=== PATIENT | male | born 1955 | race Caucasian/White ===

== ENCOUNTER 2016-07-08 14:03 | Inpatient (IN) | payer BC ==
[~2016-07-08] VITALS: Ht 180.3 cm; Wt 108.0 kg
[~2016-07-08 14:03] MED LIST: LEVA500T PO; PERC5TAB6 PO
[2016-07-08] MEDS ORDERED: ADVI200T PO (15:21)
[2016-07-08] MEDS ORDERED: HYDR12CA PO (15:21)
[2016-07-08] MEDS ORDERED: ATOR1TAB19 PO (15:21)
[2016-07-08] MEDS ORDERED: cefTRIAXone SOD 1 GM VIAL (J0696) As Ordered ONE (16:10)
[2016-07-08] MEDS ORDERED: MORPHINE 4 MG/ML 1ML SYRINGE As Ordered ONE (16:10)
[2016-07-08] MEDS ORDERED: ACETAMINOPHEN 325 MG TAB As Ordered ONE (16:10)
[2016-07-08] MEDS ORDERED: ONDANSETRON 4MG/2ML VIAL (J2405) As Ordered ONE (16:10)
[2016-07-08 16:20] LABS: INR 1.15
[2016-07-08 16:26] LABS: BASO # 0.1 K/mm3 (0.0-0.2); BASO % 0.6 % (0.0-1.0); EOS % 0.1 % (0.0-3.0); LARGE UNSTAINED CELL # 0.2 K/mm3 (0.0-0.4); LARGE UNSTAINED CELL % 1.1 % (0.0-4.0); LYMPH # 0.8 K/mm3 (1.5-4.5); LYMPH % 2.9 % (24.0-44.0); MEAN CORPUSCULAR HGB CONC 35.3 g/dl (32.0-36.5); MEAN CORPUSCULAR VOLUME 79.3 fl (80.0-96.0); MONO # 1.2 K/mm3 (0.0-0.8); MONO % 6.2 % (0.0-5.0); NEUTROPHILS # 17.1 K/mm3 (1.8-7.7); PLATELET COUNT, AUTOMATED 346 k/mm3 (150-450); RED CELL DISTRIBUTION WIDTH 13.6 % (11.5-14.5); WHITE BLOOD COUNT 19.2 K/mm3 (4.0-10.0)
[2016-07-08 16:34] LABS: ALBUMIN 3.1 GM/DL (3.2-5.2); ALBUMIN/GLOBULIN RATIO 0.86 (1.00-1.93); ALKALINE PHOSPHATASE 79 U/L (45-117); ALT/SGPT 28 U/L (12-78); AMYLASE 26 U/L (25-115); ANION GAP 12 MEQ/L (8-16); AST/SGOT 12 U/L (15-37); BILIRUBIN,DIRECT 0.7 MG/DL (0.0-0.2); BILIRUBIN,TOTAL 1.7 MG/DL (0.2-1.0); BLOOD UREA NITROGEN 14 MG/DL (7-18); CALCIUM LEVEL 8.7 MG/DL (8.5-10.1); CARBON DIOXIDE LEVEL 28 MEQ/L (21-32); CHLORIDE LEVEL 96 MEQ/L (98-107); CREATININE FOR GFR 1.04 MG/DL (0.70-1.30); GLOMERULAR FILTRATION RATE > 60.0 (>56); GLUCOSE, FASTING 115 MG/DL (70-105); SODIUM LEVEL 136 MEQ/L (136-145); TOTAL PROTEIN 6.7 GM/DL (6.4-8.2)
[2016-07-08] MEDS ORDERED: BISACODYL 5 MG TAB PO PRN (17:15)
[2016-07-08] MEDS ORDERED: ACETAMINOPHEN TAB 650MG DOSE (2X325MG) PO PRN (17:15)
--- NOTE | 2016-07-08 17:50 | HPE ---
DATE OF ADMISSION: 07/08/2016 PRIMARY CARE PROVIDER: Dr. Gene Munoz CHIEF COMPLAINT: Lower abdominal pain. HISTORY OF PRESENT ILLNESS: This patient is a 60-year-old male with a past medical history significant for prostate cancer, status post prostatectomy, hypercholesterolemia, who presented to [facility] on 07/08/2016 for worsening lower abdominal pain. The patient stated that approximately 4 to 5 days ago he was doing physical work and he started having acute onset of bilateral lower abdominal pain, mainly on the right side. The pain is constant without any radiation. He does not know what makes the pain worse or better. In the past few days, he also started experiencing a fever and nausea for the past 5 days. The patient also noted that he started having diarrhea. The patient is also noted to have cold-like symptoms, most significantly for head congestion for the past 2 weeks. The patient did have a history of prostate cancer diagnosis and is status post prostatectomy in January [address] Kaiser. After the prostatectomy, the patient has experienced fluid collection in the bilateral lower abdomen. He had image guided fluid drainage in March 2015. The patient was told that the fluid was lymphocytes and he is not sure whether there was any bacteria. The patient came to [facility] Emergency Room. During the workup, CT of the abdomen and pelvis was performed and it was found to have persistent large bilateral pelvic fluid collection, which compresses the bladder centrally. There is mild to large bilateral hydronephrosis and hydroureter. The hospitalist team was called for admission. ALLERGIES: No known drug allergies. HOME MEDICATIONS: - atorvastatin 10 mg by mouth daily - hydrochlorothiazide 12.5 mg by mouth daily - Advil 200 mg by mouth every 4 to 5 hours. PAST MEDICAL HISTORY: 1. Hypercholesterolemia. 2. History of prostate cancer, status post prostatectomy. PAST SURGICAL HISTORY 1. Prostatectomy in January 2015. 2. Umbilical hernia repair. 3. Right shoulder repair. SOCIAL HISTORY: Denies smoking. Drinks beer on a daily basis. The patient smokes marijuana at least once weekly. REVIEW OF SYSTEMS: GENERAL: Positive fever. Mild to moderate distress from abdominal pain. HEENT: No vision change. No auditory changes. CARDIOVASCULAR: No chest pain. No palpitations. RESPIRATORY: Flu-like symptoms for the past weeks GASTROINTESTINAL: Positive nausea. No vomiting. Positive bilateral lower abdominal pain, most significant on the right side. The patient is also noted to have diarrhea. MUSCULOSKELETAL: No muscle pain. No joint pain. NEUROLOGIC: No numbness or tingling. OBJECTIVE: VITAL SIGNS: Blood pressure 131/77, pulse is 112, respirations 20, temperature is 101.9, pulse oximetry 99% on room air. Body weight is 108.86. Body height is 180.34 cm. GENERAL: No acute distress. Alert and oriented times three. HEENT: Normocephalic, atraumatic. Extraocular muscles grossly intact. CARDIOVASCULAR: Distant heart sounds. Positive S1, S2. Regular rate. LUNGS: Clear to auscultation bilaterally. No rhonchi or wheezes. ABDOMEN: Distended. Bowel sounds present. No rebound. No guarding. MUSCULOSKELETAL: No edema. No cyanosis. NEUROLOGIC: Sensation to fine touch grossly intact. Muscle strength 5/5. LABORATORY DATA: WBC 19.2, hemoglobin 13.8, hematocrit 39.2, platelet count is 346. The patient's sodium is 136, potassium 4.0, chloride is 96, carbon dioxide 28, BUN 14, creatinine 1.04, GFR greater than 60, fasting glucose 115, lactic acid is 1.6, calcium is 8.7, total bilirubin is 1.7, direct bilirubin is 0.7, AST 12, ALT 28, alkaline phosphatase 79, total protein 6.7, albumin is 3.1, amylase 26, lipase 87. PT is 14.8, INR is 1.15. UA is negative for bacteria. Negative for leukocyte esterase. Negative nitrite. Microbiology: Blood culture is pending times two. Urine culture is pending. IMAGING STUDIES: CT of the abdomen and pelvis was performed on 07/08/2016 and showed persistent large bilateral ovoid pelvic fluid collection, which compresses the bladder centrally. There is moderate to large bilateral hydronephroses and hydroureter. Right sided urinary obstruction represents interval changes when compared to prior study in February 2015. There is retroperitoneal adenopathy, not significantly changed when compared to prior study. ASSESSMENT AND PLAN: 1. Large bilateral pelvic fluid collections. The patient will be admitted to the medical/surgical on inpatient status. The patient will be nothing by mouth after midnight. The patient will be on thromboembolic compression stockings (TEDS) and sequential compression device (SCD). The patient will have imaging guided needle placement for fluid drainage in interventional radiology department. 2. Systemic inflammatory response syndrome (SIRS). Currently, the patient has tachycardia with an elevated temperature. The patient also has WBC of 19.2. We will start the patient on empiric antibiotic with vancomycin and Zosyn. All the cultures are pending. The patient has a negative chest x-ray. UA is negative. 3. History of hypercholesterolemia. The patient is on atorvastatin. 4. History of prostate cancer, status post prostatectomy. 5. Deep vein thrombosis (DVT) prophylaxis. The patient will be on TEDS sequential compression device. MTDD
[2016-07-08 18:50] VITALS: BP 128/74
--- NOTE | 2016-07-08 18:52 | EDDOCDS ---
Nurse's Notes [facility] Name: Linden Mart Age: 60 yrs Sex: Male : 1955 Arrival Date: 07/08/2016 Time: 14:03 Bed 21 Private MD: Gene Munoz MD Diagnosis: Other hydronephrosis-lymphoceles;Fever, unspecified Presentation: 07/08 14:14 Presenting complaint: Patient states: "I've got a blocked ureter. I just came from [facility] and because I went through urgent care they told me to come here.". Adult Sepsis Screening: The patient does not have new or worsening altered mentation. Patient's respiratory rate is less than 22. Systolic blood pressure is greater than 100. Patient has a qSOFA score of 0- Negative Sepsis Screen. Suicide/Homicide risk assessment- the patient denies having any suicidal and/or homicidal ideations and does not present with any other emotional, behavioral or mental health complaints. Status: Patient is not a family dinner service specialist or dependent. Transition of care: Patient was received from [facility]. 14:14 Acuity: OCTAVIO Level 3 jc4 14:14 Method Of Arrival: Walkin/Carried/Asstd jc4 Triage Assessment: 14:18 General: Appears in no apparent distress. jc4 14:18 Pain: Pain currently is 5 out of 10 on a pain scale. Pt Declines HIV testing. jc4 Historical: - Allergies: no known allergies; - Home Meds: 1. atorvastatin 10 mg oral tab 1 tab once daily (Last dose: 07/07/2016) 2. hydrochlorothiazide 12.5 mg Oral tab 1 tab once daily (Last dose: 07/07/2016) 3. Advil 200 mg Oral tab 1 tab every 4-6 hours (Last dose: 07/08/2016 05:00) - PMHx: Hypercholesterolemia; Cancer, Prostate; - PSHx: prostate Surgery; Hernia repair- Umbilical; Right Shoulder Surgery; - Social history: Smoking status: Patient states was never smoker of tobacco. No barriers to communication noted, The patient speaks fluent Anguill[place]. - Family history: Not pertinent. - : The pt / caregiver states he / she is not on anticoagulants. Home medication list is obtained from pill bottles. - Exposure Risk Screening:: None identified. Screenin:48 Screening information is obtained from the patient. Fall risk: No risks identified. ms2 Assistance ADL's: requires no assistance with activities of daily living. Abuse/DV Screen: The patient / caregiver reports he/she is: not in a situation that causes fear, pain or injury. Nutritional screening: No deficits noted. Advance Directives: Currently, there is a health care proxy, -everett. There is an active DNR order but there is no copy available at this time. There is a living will, but a copy is not available at this time. There is an active Power of Automotive Internet Sales Manager, see above. Advance directive information has been placed on a prior [facility] medical record, Further advance directive information is declined. home support is adequate. Assessment: 15:40 General: Appears in no apparent distress, with pt. Behavior is cooperative, first ms2 contact with pt. Neurological: Level of Consciousness is awake, alert, obeys commands. Respiratory: No deficits noted. Airway is patent Respiratory effort is even, unlabored, Respiratory pattern is regular, symmetrical. GI: Abdomen is non- distended. Derm: Skin is pink, warm & dry. Musculoskeletal: Range of motion intact in all extremities. 16:23 General: Appears in no apparent distress, medicated for pain per order. Behavior is ms2 cooperative. Neurological: No deficits noted. Respiratory: Airway is patent Respiratory effort is even, unlabored, Respiratory pattern is regular, symmetrical. Derm: Skin is pink, warm & dry. Musculoskeletal: Range of motion intact in all extremities. 17:36 General: Appears in no apparent distress, comfortable, Behavior is cooperative. ms2 Neurological: Level of Consciousness is awake, alert, obeys commands. Respiratory: No deficits noted. Derm: Skin is pink, warm & dry. Musculoskeletal: Range of motion intact in all extremities. 17:41 Adult Sepsis Screening: Accepted Exclusions- The patient does not have new or worsening ms2 altered mentation. Patient's respiratory rate is less than 22. Systolic blood pressure is greater than 100. Patient has a qSOFA score of 0- Negative Sepsis Screen. 18:20 General: Appears in no apparent distress, comfortable, Behavior is cooperative, aware ms2 has a room. Neurological: Level of Consciousness is awake, alert, obeys commands. Respiratory: No deficits noted. Airway is patent Respiratory effort is even, unlabored, Respiratory pattern is regular, symmetrical. Derm: Skin is pink, warm & dry. Musculoskeletal: Range of motion intact in all extremities. 18:45 Adult Sepsis Screening: The patient does not have new or worsening altered mentation. ms2 Patient's respiratory rate is less than 22. Systolic blood pressure is greater than 100. Patient has a qSOFA score of 0- Negative Sepsis Screen. General: Appears in no apparent distress, comfortable, Behavior is cooperative. General: Appears in no apparent distress. Pain: Pain currently is 4 out of 10 on a pain scale. Neurological: Level of Consciousness is awake, alert, obeys commands. Respiratory: No deficits noted. Airway is patent Respiratory effort is even, unlabored, Respiratory pattern is regular, symmetrical. GI: Abdomen is flat, non- distended. Derm: Skin is pink, warm & dry. Musculoskeletal: Range of motion intact in all extremities. Vital Signs: 14:04 BP 131 / 77; Pulse 112; Resp 20; Temp 101.9(O); Pulse Ox 99% on R/A; Weight 108.86 kg elp (R); Height 5 ft. 11 in. (180.34 cm) (R); Pain 5/10; 16:23 BP 128 / 76; Pulse 107; Resp 20 S; Pulse Ox 93% on R/A; ms2 17:36 BP 131 / 81; Pulse 94; Resp 20 S; Pulse Ox 95% on R/A; ms2 18:46 BP 137 / 86; Pulse 69; Resp 20 S; Temp 100.2(O); Pulse Ox 96% on R/A; Pain 2/10; ms2 14:04 Body Mass Index 33.47 (108.86 kg, 180.34 cm) [facility] Vitals: 14:04 Log In Time: July 08, 2016 at 14:01. [facility] ED Course: 14:04 Patient visited by Mine Peres PCA. elp 14:04 Gene Munoz is Private Physician. elp 14:04 Patient moved to Waiting elp 14:06 Patient visited by Mine Peres PCA. elp 14:06 Patient moved to Pre RCE elp 14:15 Triage Initiated jc4 14:22 Soren Toussaint,DIEUDONNE is Primary Nurse. jc4 14:22 Patient moved to 21 jc4 14:23 Teresa Willett MD is Attending Physician. sd1 14:41 Patient visited by Teresa Willett MD. sd1 15:40 Patient visited by Soren Toussaint RN. ms2 15:40 The patient / caregiver is instructed regarding the plan of care and ED course. ms2 15:40 -Influenza A&B Rapid Antigen - Nose Sent. ms2 15:40 Urinalysis Sent. ms2 15:40 Urine Culture Sent. ms2 15:48 Inserted saline lock: 20 gauge in left hand The patient tolerated the procedure well. ms2 No procedures done that require assistance. 15:51 Patient visited by Soren Toussaint RN. ms2 15:51 Amylase Sent. ms2 15:51 Basic Metabolic Profile Sent. ms2 15:51 CBC with Diff Sent. ms2 15:51 Lipase Sent. ms2 15:51 Liver Profile Sent. ms2 15:51 Prothrombin Time Profile\\E\\INR Sent. ms2 15:51 Lactic Acid (Newton tube on ice) Sent. ms2 16:01 [facility] Payment Agreement was scanned into [employer] and attached to record. gjb 16:02 -Blood Culture Sent. ms2 16:23 The patient / caregiver is instructed regarding the plan of care and ED course. ms2 16:23 IV is patent, is intact, is free of redness or swelling. solution is infusing as ms2 ordered. 16:39 Gayatri Jackson shipping assistant. ys2 16:39 Gayatri Jackson is Hospitalizing Provider. sd1 17:34 Patient visited by Soren Toussaint RN. ms2 17:37 The patient / caregiver is instructed regarding the plan of care and ED course. ms2 17:37 IV is patent, is intact, is free of redness or swelling. solution is infusing as ms2 ordered. no reaction to iv antibiotic. 18:21 The patient / caregiver is instructed regarding the plan of care and ED course. ms2 18:21 IV is patent, is intact, is free of redness or swelling. solution is infusing as ms2 ordered. 18:45 Patient visited by Soren Toussaint RN. ms2 18:47 The patient / caregiver is instructed regarding the plan of care and ED course. ms2 18:47 IV is patent, is intact, is free of redness or swelling. ms2 Administered Medications: 16:15 Drug: NS 0.9% 1000 ml [sodium chloride 0.9 % intravenous solution] Route: IV; Rate: 100 ms2 mL/hr; Site: left hand; 16:18 Drug: Acetaminophen 650 mg [acetaminophen 325 mg tablet (2 tabs)] Route: PO; ms2 16:19 Drug: Ondansetron 4 mg Route: IVP; Site: left hand; ms2 16:20 Drug: morphine 4 mg Route: IVP; Site: left hand; ms2 16:23 Follow up: BP 128 / 76; Pulse 107 bpm; Resp 20 bpm Spontaneous; Pulse Ox 93% RA ms2 16:23 Drug: cefTRIAXone 1 grams Route: IVPB; Infused Over: 30 mins; Site: left hand; ms2 Intake: 17:36 IV: 50.00ml (NS); Total: 50.00ml. ms2 18:46 PO: 100.00ml (Water); IV: 50.00ml (NS); Total: 200.00ml. ms2 Output: 18:46 Urine: 100.00ml (Voided); Total: 100.00ml. ms2 Order Results: Lab Order: Amylase; SPEC'M 07/08/16 15:52 Test: AMYLASE; Value: 26; Range: 25-115; Units: U/L; Status: F Lab Order: Basic Metabolic Profile; SPEC'M 07/08/16 15:52 Test: GLUCOSE, FASTING; Value: 115; Range: 70-105; Abnormal: Above high normal; Units: MG/DL; Status: F Test: BLOOD UREA NITROGEN; Value: 14; Range: 7-18; Units: MG/DL; Status: F Test: CREATININE FOR GFR; Value: 1.04; Range: 0.70-1.30; Units: MG/DL; Status: F Test: GLOMERULAR FILTRATION RATE; Value: > 60.0; Range: >56; Status: F Test: SODIUM LEVEL; Value: 136; Range: 136-145; Units: MEQ/L; Status: F Test: POTASSIUM SERUM; Value: 4.0; Range: 3.5-5.1; Units: MEQ/L; Status: F Test: CHLORIDE LEVEL; Value: 96; Range: 98-107; Abnormal: Below low normal; Units: MEQ/L; Status: F Test: CARBON DIOXIDE LEVEL; Value: 28; Range: 21-32; Units: MEQ/L; Status: F Test: ANION GAP; Value: 12; Range: 8-16; Units: MEQ/L; Status: F Test: CALCIUM LEVEL; Value: 8.7; Range: 8.5-10.1; Units: MG/DL; Status: F Test Note: ; Units are mL/min/1.73 m2 Chronic Kidney Disease Staging per NKF: Stage I & II GFR >=60 Normal to Mildly Decreased Stage III GFR 30-59 Moderately Decreased Stage IV GFR 15-29 Severely Decreased Stage V GFR <15 Very Little GFR Left ESRD GFR <15 on SPINNING AND WINDING SUPERVISOR Lab Order: CBC with Diff; SPEC'M 07/08/16 15:52 Test: WHITE BLOOD COUNT; Value: 19.2; Range: 4.0-10.0; Abnormal: Above high normal; Units: K/mm3; Status: F Test: RED BLOOD COUNT; Value: 4.94; Range: 4.30-6.10; Units: M/mm3; Status: F Test: HEMOGLOBIN; Value: 13.8; Range: 14.0-18.0; Abnormal: Below low normal; Units: g/dl; Status: F Test: HEMATOCRIT; Value: 39.2; Range: 42.0-52.0; Abnormal: Below low normal; Units: %; Status: F Test: MEAN CORPUSCULAR VOLUME; Value: 79.3; Range: 80.0-96.0; Abnormal: Below low normal; Units: fl; Status: F Test: MEAN CORPUSCULAR HEMOGLOBIN; Value: 28.0; Range: 27.0-33.0; Units: pg; Status: F Test: MEAN CORPUSCULAR HGB CONC; Value: 35.3; Range: 32.0-36.5; Units: g/dl; Status: F Test: RED CELL DISTRIBUTION WIDTH; Value: 13.6; Range: 11.5-14.5; Units: %; Status: F Test: PLATELET COUNT, AUTOMATED; Value: 346; Range: 150-450; Units: k/mm3; Status: F Test: NEUTROPHILS %; Value: 89.0; Range: 36.0-66.0; Abnormal: Above high normal; Units: %; Status: F Test: LYMPH %; Value: 2.9; Range: 24.0-44.0; Abnormal: Below low normal; Units: %; Status: F Test: MONO %; Value: 6.2; Range: 0.0-5.0; Abnormal: Above high normal; Units: %; Status: F Test: EOS %; Value: 0.1; Range: 0.0-3.0; Units: %; Status: F Test: BASO %; Value: 0.6; Range: 0.0-1.0; Units: %; Status: F Test: LARGE UNSTAINED CELL %; Value: 1.1; Range: 0.0-4.0; Units: %; Status: F Test: NEUTROPHILS #; Value: 17.1; Range: 1.8-7.7; Abnormal: Above high normal; Units: K/mm3; Status: F Test: LYMPH #; Value: 0.8; Range: 1.5-4.5; Abnormal: Below low normal; Units: K/mm3; Status: F Test: MONO #; Value: 1.2; Range: 0.0-0.8; Abnormal: Above high normal; Units: K/mm3; Status: F Test: EOS #; Value: 0.0; Range: 0.0-0.50; Units: K/mm3; Status: F Test: BASO #; Value: 0.1; Range: 0.0-0.2; Units: K/mm3; Status: F Test: LARGE UNSTAINED CELL #; Value: 0.2; Range: 0.0-0.4; Units: K/mm3; Status: F Lab Order: Lipase; [facility] 07/08/16 15:52 Test: LIPASE; Value: 87; Range: 73-393; Units: U/L; Status: F Lab Order: Liver Profile; [facility] 07/08/16 15:52 Test: AST/SGOT; Value: 12; Range: 15-37; Abnormal: Below low normal; Units: U/L; Status: F Test: ALT/SGPT; Value: 28; Range: 12-78; Units: U/L; Status: F Test: ALKALINE PHOSPHATASE; Value: 79; Range: 45-117; Units: U/L; Status: F Test: BILIRUBIN,TOTAL; Value: 1.7; Range: 0.2-1.0; Abnormal: Above high normal; Units: MG/DL; Status: F Test: BILIRUBIN,DIRECT; Value: 0.7; Range: 0.0-0.2; Abnormal: Above high normal; Units: MG/DL; Status: F Test: TOTAL PROTEIN; Value: 6.7; Range: 6.4-8.2; Units: GM/DL; Status: F Test: ALBUMIN; Value: 3.1; Range: 3.2-5.2; Abnormal: Below low normal; Units: GM/DL; Status: F Test: ALBUMIN/GLOBULIN RATIO; Value: 0.86; Range: 1.00-1.93; Abnormal: Below low normal; Status: F Lab Order: Prothrombin Time Profile\\E\\INR; [facility] 07/08/16 15:52 Test: PROTHROMBIN TIME; Value: 14.8; Range: 12.3-14.5; Abnormal: Above high normal; Units: SECONDS; Status: F Test: INR; Value: 1.15; Status: F Test Note: ; THERAPUTIC HUMAN INR VALUES INDICATIONS NORMAL RANGES PROPHYLAXIS/TREATMENT OF: VENOUS THROMBOSIS 2.0-3.0 PULMONARY EMBOLISM 2.0-3.0 PREVENTION OF SYSTEMIC EMBOLISM FROM: TISSUE HEART VALVES 2.0-3.0 ACUTE MYOCARDIAL INFARCTION 2.0-3.0 VALVULAR HEART DISEASE 2.0-3.0 ATRIAL FIBRILLATION 2.0-3.0 MECHANICAL VALVES(HIGH RISK) 2.5-3.5 RECURRENT MYOCARDIAL INFARCTION 2.5-3.5 Lab Order: Urinalysis; [facility] 07/08/16 15:52 Test: APPEARANCE, URINE; Value: CLEAR; Range: CLEAR; Status: F Test: COLOR, URINE; Value: YELLOW; Range: YELLOW; Status: F Test: PH,URINE; Value: 5.0; Range: 5.0-9.0; Units: UNITS; Status: F Test: SPECIFIC GRAVITY URINE AUTO; Value: 1.048; Range: 1.002-1.035; Status: F Test: PROTEIN, URINE AUTO; Value: 2+; Range: NEGATIVE; Abnormal: Above high normal; Units: mg/dL; Status: F Test: GLUCOSE, URINE (UA) AUTO; Value: NEGATIVE; Range: NEGATIVE; Units: mg/dL; Status: F Test: KETONE, URINE AUTO; Value: 1+; Range: NEGATIVE; Abnormal: Above high normal; Units: mg/dL; Status: F Test: UROBILINOGEN, URINE AUTO; Value: 2.0; Range: 0.0-2.0; Abnormal: Above high normal; Units: mg/dL; Status: F Test: BILIRUBIN, URINE AUTO; Value: NEGATIVE; Range: NEGATIVE; Status: F Test: NITRITE, URINE AUTO; Value: NEGATIVE; Range: NEGATIVE; Status: F Test: LEUKOCYTE ESTERASE, URINE AUTO; Value: NEGATIVE; Range: NEGATIVE; Status: F Test: BLOOD, URINE BLOOD; Value: 1+; Range: NEGATIVE; Abnormal: Above high normal; Status: F Test: WBC, URINE AUTO; Value: 2; Range: 0-3; Units: /HPF; Status: F Test: RBC, URINE AUTO; Value: 7; Range: 0-3; Abnormal: Above high normal; Units: /HPF; Status: F Test: BACTERIA, URINE AUTO; Value: NEGATIVE; Range: NEGATIVE; Status: F Test: SQUAMOUS EPITHELIAL CELL UR AU; Value: 0; Range: 0-6; Units: /HPF; Status: F Test: HYALINE CAST, URINE AUTO; Value: 0; Range: 0-1; Units: /LPF; Status: F Lab Order: -Influenza A&B Rapid Antigen - Nose; SPEC'M 07/08/16 15:52 Test: INFLUENZA A RAPID SCR by ICA; Value: INFLUENZA A RESULTS NEGATIVE; Status: F Test: INFLUENZA A RAPID SCR by ICA; Value: Comments:; Status: F Test: INFLUENZA B RAPID SCR by ICA; Value: INFLUENZA B RESULTS NEGATIVE; Status: F Test Note: ; The Influenza test is a direct rapid immunoassay for the qualitative detection of Influenza viral antigen. Cell culture (Viral Culture) testing should be considered to confirm NEGATIVE results and to assist in detecting other viruses that can provide similar clinical symptoms. Please contact the lab within 24 hours ([phone]) if confirmatory testing is desired. Lab Order: Lactic Acid (Newton tube on ice); SPEC'M 07/08/16 15:52 Test: LACTIC ACID LEVEL, LACTATE; Value: 1.6; Range: 0.4-2.0; Units: MMOL/L; Status: F Outcome: 16:39 Decision to Hospitalize by Provider. sd1 18:47 Discharge Assessment: patient administered narcotics - yes. Patient was admitted to the [address] or transferred to another facility. The following High Risk Discharge criteria are identified: None. Admitted to Med/Surg accompanied by tech, family with patient, via stretcher, with chart. Condition: stable. No special radiology studies were completed. Property :Personal belongings accompany Pt. 18:51 Patient left the ED. ms2 Signatures: Teresa Willett MD MD sd1 Soren ToussaintRN RN ms2 Bridgette Stroud RN RN jc4 Mine Peres PCA PCA elp Beck, Gabriela gjb Sung, Yu ys2 Corrections: (The following items were deleted from the chart) 17:04 16:15 cefTRIAXone 1 grams IVPB in left hand over 30 mins ms2 ms2 MTDD
--- NOTE | 2016-07-08 18:52 | EDDOCDS ---
Physician Documentation [facility] Name: Linden Mart Age: 60 yrs Sex: Male : 1955 Arrival Date: 07/08/2016 Time: 14:03 Bed 21 Private MD: Gnee Munoz MD Disposition: 07/08/16 16:39 Hospitalization ordered by Gayatri Jackson for Inpatient Admission. Preliminary diagnosis are Other hydronephrosis - lymphoceles, Fever, unspecified. - Bed requested for 4 Wilburn. - Status is Inpatient Admission. ms2 - Condition is Stable. - Problem is new. - Symptoms have improved. Historical: - Allergies: no known allergies; - Home Meds: 1. atorvastatin 10 mg oral tab 1 tab once daily (Last dose: 07/07/2016) 2. hydrochlorothiazide 12.5 mg Oral tab 1 tab once daily (Last dose: 07/07/2016) 3. Advil 200 mg Oral tab 1 tab every 4-6 hours (Last dose: 07/08/2016 05:00) - PMHx: Hypercholesterolemia; Cancer, Prostate; - PSHx: prostate Surgery; Hernia repair- Umbilical; Right Shoulder Surgery; - Social history: Smoking status: Patient states was never smoker of tobacco. No barriers to communication noted, The patient speaks fluent Kyrgyz. - Family history: Not pertinent. - : The pt / caregiver states he / she is not on anticoagulants. Home medication list is obtained from pill bottles. - Exposure Risk Screening:: None identified. Vital Signs: 07/08 14:04 BP 131 / 77; Pulse 112; Resp 20; Temp 101.9(O); Pulse Ox 99% on R/A; Weight 108.86 kg / elp 240 lbs (R); Height 5 ft. 11 in. (180.34 cm) (R); Pain 5/10; 16:23 BP 128 / 76; Pulse 107; Resp 20 S; Pulse Ox 93% on R/A; ms2 17:36 BP 131 / 81; Pulse 94; Resp 20 S; Pulse Ox 95% on R/A; ms2 18:46 BP 137 / 86; Pulse 69; Resp 20 S; Temp 100.2(O); Pulse Ox 96% on R/A; Pain 2/10; ms2 14:04 Body Mass Index 33.47 (108.86 kg, 180.34 cm) elp MDM: 14:55 Undress patient appropriately for examination ordered. sd1 14:55 Obtain sample by nasopharyngeal swab ordered. sd1 14:56 NS 0.9% 1000 ml IV at 100 mL/hr continuous ordered. sd1 14:56 Acetaminophen Tablet 650 mg PO once ordered. sd1 14:56 Amylase Ordered. EDMS 14:56 Basic Metabolic Profile Ordered. EDMS 14:56 CBC with Diff Ordered. EDMS 14:56 Lipase Ordered. EDMS 14:56 Liver Profile Ordered. EDMS 14:56 Prothrombin Time Profile\E\INR Ordered. EDMS 14:56 Urinalysis Ordered. EDMS 14:56 Urine Culture Ordered. EDMS 14:56 -Influenza A&B Rapid Antigen - Nose Ordered. EDMS 14:56 morphine 4 mg IVP every 15 minutes; Document pain score/vitals after each dose (Hold if sd1 SBP < 90mmHg) x2 ordered. 14:56 Ondansetron 4 mg IVP once ordered. sd1 14:57 NOTHING BY MOUTH+DIET ordered. EDMS 14:59 -Blood Culture (Adults Only), peripheral from different site, or from device/port/PICC sd1 etc. if present ordered. 14:59 BED REQUEST+ADM ordered. EDMS 15:00 Lactic Acid (Newton tube on ice) Ordered. EDMS 15:00 -Blood Culture Ordered. EDMS 15:00 Chest, 2 View (pa\E\lat) Ordered. EDMS 15:18 -Blood Culture (Adults Only), peripheral from different site, or from device/port/PICC deg etc. if present complete. 15:19 BLOOD CULTURES Ordered. EDMS 15:47 cefTRIAXone 1 grams IVPB once over 30 mins; dilute in 50mL of NS or D5W ordered. sd1 16:01 [facility] Payment Agreement was scanned into [employer] and attached to record. gjb 16:01 Financial registration complete. gjb 16:23 Prothrombin Time Profile\E\INR Reviewed. sd1 16:23 Urinalysis Reviewed. sd1 16:23 -Influenza A&B Rapid Antigen - Nose Reviewed. sd1 16:31 GASTROINTESTINAL (GI) PANEL Ordered. EDMS 16:34 CBC with Diff Reviewed. sd1 16:36 Basic Metabolic Profile Reviewed. sd1 16:36 Liver Profile Reviewed. sd1 16:36 Amylase Reviewed. sd1 16:36 Lipase Reviewed. sd1 17:04 cefTRIAXone 1 grams IVPB once over 30 mins; dilute in 50mL of NS or D5W ordered. ms2 17:06 Admission / Observation Status ordered. EDMS 17:06 NPO DIET ordered. EDMS 17:17 CT guide needle placement Ordered. EDMS Administered Medications: 16:15 Drug: NS 0.9% 1000 ml [sodium chloride 0.9 % intravenous solution] Route: IV; Rate: 100 ms2 mL/hr; Site: left hand; 16:18 Drug: Acetaminophen 650 mg [acetaminophen 325 mg tablet (2 tabs)] Route: PO; ms2 16:19 Drug: Ondansetron 4 mg Route: IVP; Site: left hand; ms2 16:20 Drug: morphine 4 mg Route: IVP; Site: left hand; ms2 16:23 Follow up: BP 128 / 76; Pulse 107 bpm; Resp 20 bpm Spontaneous; Pulse Ox 93% RA ms2 16:23 Drug: cefTRIAXone 1 grams Route: IVPB; Infused Over: 30 mins; Site: left hand; ms2 Signatures: Dispatcher [employer] EDAZ Teresa Willett MD MD sd1 Le Barnes, Configuration Management Architect Unit deg Soren Toussaint RN RN ms2 Bridgette Stroud RN RN Jacqueline Sanabria Lisa, RN RN lmg The chart was reviewed and I authenticate all verbal orders and agree with the evaluation and treatment provided.Corrections: (The following items were deleted from the chart) 16:24 15:46 Tillman ordered. sd1 sd1 16:32 16:30 GASTROINTESTINAL (GI) PANEL+MARIAM ordered. EDMS EDMS Attachments: 16:01 [facility] Payment [facility]
--- NOTE | 2016-07-08 19:47 | PHACANCOPD ---
PHARMACY VANCOMYCIN DOSING Pt Demographics Demographics Patient Age:60 , Weight:105.200 , Gender: male Adjusted Body Weight Events Past 24 Hours Events Past 24 Hours: NO: Change in CrCl, Dialysis, Diuretic Therapy, Elevation in WBC, Fever, Other, Pending Diagnostics, Pending Procedures Vancomycin Vancomycin Target Ranges: 15-20 mcg/ml Vancomycin Load Y/N: Yes Load Dose Date Time Vancomycin Load Dose: 2GM Date: 07/08/16 Time: 21:00 Vancomycin Dose Date: 07/09/16. Current Vancomycin Dose: [1GM IV Q8H (05:00)] Intermittent Dosing?: No Labs Labs Laboratory Tests 07/08/16 15:52 Red Blood Count 4.94, Mean Corpuscular Volume 79.3 L, Mean Corpuscular Hemoglobin 28.0, Mean Corpuscular Hemoglobin Concent 35.3, Red Cell Distribution Width 13.6, Neutrophils (%) (Auto) 89.0 H, Lymphocytes (%) (Auto) 2.9 L, Monocytes (%) (Auto) 6.2 H, Eosinophils (%) (Auto) 0.1, Basophils (%) ( Auto) 0.6, Neutrophils # (Auto) 17.1 H, Lymphocytes # (Auto) 0.8 L, Monocytes # (Auto) 1.2 H, Eosinophils # (Auto) 0.0, Basophils # (Auto) 0.1 Micro Microbiology 07/08/16 Blood Culture, Received Pending 07/08/16 Blood Culture, Received Pending 07/08/16 Urine Culture, Received Pending Creatinine Clearance Date:07/08/16. Creatinine Clearance: [>60ml/min]. Assessment and Plan Maintaining Current Dose?: Yes Reason for dose change: No Dose Change Pharmacist Note Pharmacist Note Date: 07/08/16. Pharm.D. note: 60YO MALE, 71" in HEIGHT, 108.86kg in WEIGHT. SCR 1.04, CRCL >60 ml/ min.ADMITTED WITH SIRS & LEUKOCYTOSIS. ZOSYN 3.375GM IV Q6H 20:00 WE ARE ASKED TO DOSE VANCO. WE WILL INITIATE WITH A 2GM VANCO LOAD AT 21:00 FOLLOWED BY VANCO 1GM IV Q8H STARTING @ 05:00 07/09/16. A VANCO TR WILL BE DRAWN WHEN HE IS AT STEADY STATE. BAKARI Pharm.D. [facility] Jul 08, 2016 19:47
[2016-07-08] MEDS: NS 1,000 ML IV SCH (20:19)
[2016-07-08] MEDS: ATORVASTATIN 10 MG TAB PO SCH (20:19)
[2016-07-08] MEDS: PIPERACILLIN/TAZOBACTAM SOD 3.375 GM in D5W MINI-BAG PLUS 50 ML IV SCH (20:38)
[2016-07-08 20:40] VITALS: BP 136/75
[2016-07-08] MEDS ORDERED: VANCOMYCIN HCL 1,000 MG, VIAL MATE ADAPTER 1 EACH in D5W 250 ML IV ONE ×2 (21:00→22:00)
--- NOTE | 2016-07-08 23:54 | REP ---
PA and lateral chest 07/08/2016 Indication: Cough and fever Comparison: PA and lateral chest 01/14/2015, CT abdomen pelvis 07/08 which includes lung bases in field of view. The cardiac silhouette is normal. The mediastinum is within normal limits. There is eventration of the right hemidiaphragm without change. The lungs are clear bilaterally. Moderate degenerative changes are noted within the distal right clavicle.] Impression 1. No acute cardiopulmonary process or interval change Signed by Charisse Betts MD 07/08/2016 11:46 P
[2016-07-09] MEDS: PIPERACILLIN/TAZOBACTAM SOD 3.375 GM in D5W MINI-BAG PLUS 50 ML IV SCH ×4 (02:28→20:14)
[2016-07-09] MEDS: PERCOCET 5MG/325MG TAB PO PRN ×3 (02:31→21:13)
[2016-07-09] MEDS: VANCOMYCIN HCL 1,000 MG, VIAL MATE ADAPTER 1 EACH in D5W 250 ML IV SCH ×3 (05:54→21:13)
[2016-07-09] MEDS: NS 1,000 ML IV SCH ×3 (05:55→23:01)
[2016-07-09 06:05] VITALS: BP 122/70
[2016-07-09] MEDS ORDERED: LIDOCAINE 1% MDV 20ML VIAL As Ordered ONE (10:13)
[2016-07-09 12:10] VITALS: BP 132/72
[2016-07-09] MEDS: ATORVASTATIN 10 MG TAB PO SCH (12:19)
--- NOTE | 2016-07-09 12:31 | IPNPDOC ---
Assessment/Plan Date Seen The patient was seen on 07/09/16. Patient Summary Patient was admitted 07/08/2016 with increasing abdominal pain and leukocytosis of 19.2 Problems Problems: (1) Intra-abdominal fluid Status: Acute Response to Treatment: Stable Discussed With: Cylinder Steamer, Pt and Family Services Problem Text: Awaiting results from IR drainage. We'll discuss with Dr. Caruso regarding possible surgical intervention. However, he is not here until Tuesday. Patient will need to be monitored until sirs has resolved and cultures are negative. -Continue empiric antibiotics; Zosyn day 1; initiated 1999 on July 08 -Follow up fluid analysis -Discuss with Dr. Caruso (2) SIRS (systemic inflammatory response syndrome) Status: Acute Problem Text: Unknown source, however patient had positive UA. He also had a large quantity of fluid in the pelvis, which was just drained. He also screen positive for enterotoxic Escherichia coli. He is not currently complaining of any bowel symptoms, so sirs may be due to urosepsis or intra-abdominal infection. Awaiting cultures. -Continue empiric antibiotics for possible sepsis versus inflammatory response -Follow up urine and fluid cultures (3) Hyperbilirubinemia Status: Acute Problem Text: T bili is 1.7. Unclear cause. No current right upper quadrant symptoms. -Measure direct and indirect bili (4) Anemia Status: Acute Problem Text: Borderline hemoglobin -Recheck in a.m. -Consider anemia workup outpatient; patient currently asymptomatic (5) HLD (hyperlipidemia) Status: Chronic Problem Text: continue home statin Plan / VTE VTE Prophylaxis Ordered?: Yes (previously on teds, however with history of prostate cancer Will anticoagulate with heparin) Plan / Urinary Catheter Reason for insertion/continuin: Acute obstruct/retention Disposition Pending resolution of leukocytosis, evaluation of parity no fluid, and plan for patient's lymphatic insufficiency Subjective Review of Systems CC/HPI The patient is a 60-year-old male admitted with a reason for visit of Intra- Abdominal Fluid;Sirs. Events since last encounter Patient is returned from IR procedure. He states that he is now feeling well. He has a history of prostate cancer with pelvic lymph node dissection. Dr. Barreto is considering a surgical procedure to reduce the space available for fluid collection. He denies any fevers, chills, sweats, or difficulty with urination. He has no other concerns. General: Reports: Normal Appetite, Denies: Chills, Fatigue, Malaise Constitutional: Denies: Chills, Fever Skin: Denies: Rash Pulmonary: Denies: Cough, Dyspnea Cardiovascular: Denies: Chest Pain, Palpitations Gastrointestinal: Denies: Nausea, Vomiting Genitourinary: Denies: Dysuria Other systems 10 point review of systems otherwise negative Objective Physical Examination General Exam: Positive: Alert, No Acute Distress Eye Exam: Positive: Conjunctiva & lids normal, Negative: Sclera icteric ENT Exam: Positive: Mucous membr. moist/pink, Nares Patent Neck Exam: Negative: JVD, thyromegaly Chest Exam: Positive: Clear to auscultation, Normal air movement, Negative: Rales, Rhonchi, Wheezing Heart Exam: Positive: Normal S1, Normal S2, Rate Normal, Negative: Murmurs, Rubs Abdomen Exam: Positive: Normal bowel sounds, Other (bilateral drains in place) , Soft, Negative: Hepatospenomegaly, Hernia, Mass, Tenderness Male Exam: Positive: Normal Genital Exam Extremity Exam: Positive: Normal pulses, Negative: Clubbing, Cyanosis, Edema Skin Exam: Positive: Nl turgor and temperature, Negative: Rash Vital Signs/I&O Vital Signs Date Time Temp Pulse Resp B/P Pulse Ox O2 Delivery O2 Flow Rate FiO2 07/09/16 12:10 99.1 92 18 132/72 95 Room Air I&O- Last 24 Hours up to 6 AM 07/09/16 05:59 Intake Total 860 ml Output Total 250 ml Balance 610 ml Laboratory Data Labs 24H Laboratory Tests 2 07/08/16 15:52: Aspartate Amino Transf (AST/SGOT) 12L, Alanine Aminotransferase (ALT/SGPT) 28, Alkaline Phosphatase 79, Total Bilirubin 1.7H, Direct Bilirubin 0.7H, Albumin 3.1L, Albumin/Globulin Ratio 0.86L, Amylase Level 26, Anion Gap 12, White Blood Count 19.2H, Red Blood Count 4.94, Hemoglobin 13.8L, Hematocrit 39.2L, Mean Corpuscular Volume 79.3L, Mean Corpuscular Hemoglobin 28.0, Mean Corpuscular Hemoglobin Concent 35.3, Red Cell Distribution Width 13.6, Platelet Count 346, Neutrophils (%) (Auto) 89.0H, Lymphocytes (%) (Auto) 2.9L, Monocytes (%) (Auto) 6.2H, Eosinophils (%) (Auto) 0.1, Basophils (%) (Auto) 0.6, Neutrophils # (Auto ) 17.1H, Lymphocytes # (Auto) 0.8L, Monocytes # (Auto) 1.2H, Eosinophils # (Auto ) 0.0, Basophils # (Auto) 0.1, Calcium Level 8.7, Glomerular Filtration Rate > 60.0, Lactic Acid Level 1.6, Large Unclassified Cells # 0.2, Large Unclassified Cells % 1.1, Lipase 87, Prothromb Time International Ratio 1.15, Prothrombin Time 14.8H, Total Protein 6.7, Urine Amorphous Sediment , Urine Appearance CLEAR , Urine Color YELLOW, Urine pH 5.0, Urine Specific [place] 1.048, Urine Protein 2+H, Urine Glucose (UA) NEGATIVE, Urine Ketones 1+H, Urine Urobilinogen 2.0H, Urine Bilirubin NEGATIVE, Urine Leukocyte Esterase NEGATIVE, Urine Bacteria ( Auto) NEGATIVE, Urine Blood 1+H, Urine Calcium Carbonate Cryst(Auto) , Urine Calcium Oxalate Cryst (Auto) , Urine Calcium Phosphate [place] (Auto) , Urine Cellular Casts , Urine Cystine Crystals , Urine Granular Casts (Auto) , Urine Hyaline Casts (Auto) 0, Urine Leucine Crystals , Urine Mucus (Auto) , Urine Nitrite NEGATIVE, Urine Oval Fat Bodies (Auto) , Urine RBC (Auto) 7H, Urine Renal Epithelial Cells , Urine Sperm (Auto) , Urine Squamous Epithelial Cells 0 , Urine Transitional Epithelial Cells , Urine Trichomonas (Auto) , Urine Triple Phosphate Cryst (Auto) , Urine Tyrosine Crystals , Urine Uric Acid Crystals ( Auto) , Urine WBC (Auto) 2, Urine Waxy Casts (Auto) , Urine Yeast-Like Cells ( Auto) CBC/BMP Laboratory Tests 07/08/16 15:52 Red Blood Count 4.94, Mean Corpuscular Volume 79.3 L, Mean Corpuscular Hemoglobin 28.0, Mean Corpuscular Hemoglobin Concent 35.3, Red Cell Distribution Width 13.6, Neutrophils (%) (Auto) 89.0 H, Lymphocytes (%) (Auto) 2.9 L, Monocytes (%) (Auto) 6.2 H, Eosinophils (%) (Auto) 0.1, Basophils (%) ( Auto) 0.6, Neutrophils # (Auto) 17.1 H, Lymphocytes # (Auto) 0.8 L, Monocytes # (Auto) 1.2 H, Eosinophils # (Auto) 0.0, Basophils # (Auto) 0.1 Microbiology Microbiology 07/08/16 Blood Culture, Received Pending 07/08/16 Blood Culture, Received Pending 07/09/16 Gram Stain, Received Pending 07/09/16 Body Fluid Culture, Received Pending 07/08/16 Gastrointestinal Tract Panel (PCR) - Final, Complete Enteropathogenic E.coli 07/08/16 Influenza Virus Type A Antigen - Final, Complete 07/08/16 Influenza Virus Type B Antigen - Final, Complete 07/08/16 Urine Culture - Final, Complete 07/09/16 Anaerobic Culture, Received Pending 07/09/16 Gram Stain, Received Pending 07/09/16 Body Fluid Culture, Received Pending 07/09/16 Anaerobic Culture, Received Pending АЛЕКСАНДР SALMERON MD Jul 09, 2016 12:31
--- NOTE | 2016-07-09 13:06 | REP ---
BILATERAL ULTRASOUND GUIDED PELVIC FLUID COLLECTION DRAINAGE: The patient was referred for bilateral ultrasound guided drainage of fluid collections in the pelvis. Patient has a history of bilateral lymphoceles status post prostate surgery. CT exam showed bilateral pelvic fluid collections. Informed consent was obtained for the procedure. On the right side under sterile conditions and after satisfactory administration of local anesthesia, using continuous ultrasound guidance, 10-Kazakh pigtail drainage catheter was placed into the fluid collection. Approximately 245 mL of cloudy yellow fluid was aspirated and sent for cytology, gram stain, culture and sensitivity. The pigtail catheter was sutured at the skin entrance site after forming the pigtail. It was attached to a drainage bag. The same exact procedure was performed on the left side, with placement of a 10-Kazakh pigtail drainage catheter into the left pelvic fluid collection under continuous ultrasound guidance. The pigtail was formed. Approximately 290 mL of clear yellow fluid was aspirated and sent for cytology, gram stain, culture and sensitivity. Again the catheter was sutured at the skin entrance site and attached to a drainage bag. Hemostasis was obtained and there were no immediate complications. Signed by Alexander Newton MD 07/09/2016 04:36 P
[2016-07-09 14:32] VITALS: BP 140/87
--- NOTE | 2016-07-09 15:10 | CR ---
DATE OF CONSULTATION: 07/08/2016 PHYSICIAN CONSULTING: Charisse Avila, ER doctor REASON FOR CONSULTATION: Lower urinary tract symptoms plus incidental finding of bilateral pelvic lymphoceles. HISTORY OF PRESENT ILLNESS: This is a 60-year-old male patient that had a robotic assisted radical prostatectomy plus bilateral pelvic lymph node dissections more than one year ago. He then had bilateral pelvic lymphoceles which were drained by interventional radiology. After that he had external beam radiation therapy to the prostate also. The patient has been doing very well for one year. He came today to the emergency department (ED) due to a four day history of fevers, chills and diarrhea times four episodes. He also had a cough and a sore throat. In the emergency room a CT scan of the abdomen of the pelvis was done which showed an incidental finding of bilateral pelvic lymphoceles, large around 10 cm each compressing the bladder. The patient refers that he has been urinating by himself, no hematuria. Has urinated today four times without any problems but there is moderate hydronephrosis bilaterally that could be due to compression of the bladder by the lymphoceles. Eventhough there is evident bilateral hydronephrosis, his creatinine is 1.0. PHYSICAL EXAMINATION: On physical examination he is awake, oriented times three, well nourished, well hydrated. Skin: no alterations HEENT: no alterations Lungs: Clear to auscultation. No crepitus ABDOMEN: Is soft, non-tender, non-distended. He has a large belly. There is no pain in the pelvic area. Rebound negative Genitalia: Testicles, scrotum and penis without any alteration. MUSCULOSKELETAL : No restriction to passive and active movement of upper and lower extremities. Peripheral pulses are palpable. NEUROLOGIC: Intact IMPRESSION AND PLAN: 1. This is a patient with a history of prostate cancer treated with robotic assisted radial prostatectomy more than one year ago and treated with XRT due to biochemical recurrence. He has also a history aspiration of pelvic lymphoceles more than one year ago. 2. Acute gastroenteritis. 3. Dehydration due to acute gastroenteritis 4. Bilateral moderate hydronephrosis due to recurrent pelvic lymphoceles causing compression of the bladder, and retrograde pressure to the upper collecting system PLAN: We have consulted interventional radiology for elective drainage of pelvic lymphoceles. The patient can void so we will not put a Tillman catheter. He should be admitted by hospitalist service to evaluate fever of unknown etiology, possible GI or respiratory. Cultures have been set, urine culture and blood cultures also. We will follow the patient in the hospital. DRU
[2016-07-09] MEDS: HEPARIN SOD (PORCINE) 5000 UNITS/ML VIAL SQ SCH ×2 (15:18→21:13)
[2016-07-09 20:50] VITALS: BP 123/17
[2016-07-10] MEDS: PIPERACILLIN/TAZOBACTAM SOD 3.375 GM in D5W MINI-BAG PLUS 50 ML IV SCH ×4 (02:14→19:56)
[2016-07-10] MEDS: VANCOMYCIN HCL 1,000 MG, VIAL MATE ADAPTER 1 EACH in D5W 250 ML IV SCH ×3 (05:14→21:03)
[2016-07-10] MEDS: HEPARIN SOD (PORCINE) 5000 UNITS/ML VIAL SQ SCH ×3 (05:14→21:05)
[2016-07-10 06:20] VITALS: BP 120/75
[2016-07-10 06:32] LABS: BASO # 0.2 K/mm3 (0.0-0.2); EOS % 0.4 % (0.0-3.0); LARGE UNSTAINED CELL # 0.1 K/mm3 (0.0-0.4); LARGE UNSTAINED CELL % 1.2 % (0.0-4.0); LYMPH # 0.3 K/mm3 (1.5-4.5); LYMPH % 2.1 % (24.0-44.0); MEAN CORPUSCULAR HEMOGLOBIN 27.5 pg (27.0-33.0); MEAN CORPUSCULAR HGB CONC 33.6 g/dl (32.0-36.5); MEAN CORPUSCULAR VOLUME 81.9 fl (80.0-96.0); MONO # 0.6 K/mm3 (0.0-0.8); MONO % 5.3 % (0.0-5.0); NEUTROPHILS # 9.6 K/mm3 (1.8-7.7); NEUTROPHILS % 89.2 % (36.0-66.0); PLATELET COUNT, AUTOMATED 290 k/mm3 (150-450); RED CELL DISTRIBUTION WIDTH 13.7 % (11.5-14.5); WHITE BLOOD COUNT 10.8 K/mm3 (4.0-10.0)
[2016-07-10 06:35] LABS: INR 1.17
[2016-07-10 06:54] LABS: ALBUMIN 2.1 GM/DL (3.2-5.2); ALBUMIN/GLOBULIN RATIO 0.53 (1.00-1.93); ALKALINE PHOSPHATASE 113 U/L (45-117); ALT/SGPT 59 U/L (12-78); ANION GAP 6 MEQ/L (8-16); AST/SGOT 52 U/L (15-37); BILIRUBIN,DIRECT 0.5 MG/DL (0.0-0.2); BILIRUBIN,TOTAL 0.9 MG/DL (0.2-1.0); BLOOD UREA NITROGEN 15 MG/DL (7-18); CARBON DIOXIDE LEVEL 28 MEQ/L (21-32); CHLORIDE LEVEL 103 MEQ/L (98-107); CREATININE FOR GFR 0.94 MG/DL (0.70-1.30); GLOMERULAR FILTRATION RATE > 60.0 (>56); GLUCOSE, FASTING 136 MG/DL (70-105); POTASSIUM SERUM 3.5 MEQ/L (3.5-5.1); SODIUM LEVEL 137 MEQ/L (136-145); TOTAL PROTEIN 6.1 GM/DL (6.4-8.2)
[2016-07-10] MEDS: ATORVASTATIN 10 MG TAB PO SCH (08:45)
--- NOTE | 2016-07-10 09:40 | IPNPDOC ---
Assessment/Plan Date Seen The patient was seen on 07/10/16. Problems Problems: (1) Intra-abdominal fluid Status: Acute Response to Treatment: Stable Discussed With: Graduate Research Assistant, Pt and Family Services Problem Text: Awaiting results from IR drainage. We'll discuss with Dr. Caruso regarding possible surgical intervention. However, he is not here until Tuesday. Patient will need to be monitored until sirs has resolved and cultures are negative. -Continue empiric antibiotics; Zosyn day 1; initiated 1999 on July 08 -Follow up fluid analysis -Discuss with Dr. Caruso IV Domitilasysea and Vanco day 2. Dr Kaiser following. (2) SIRS (systemic inflammatory response syndrome) Status: Acute Problem Text: Unknown source, however patient had positive UA. He also had a large quantity of fluid in the pelvis, which was just drained. He also screen positive for enterotoxic Escherichia coli. He is not currently complaining of any bowel symptoms, so sirs may be due to urosepsis or intra-abdominal infection. Awaiting cultures. -Continue empiric antibiotics for possible sepsis versus inflammatory response -Follow up urine and fluid cultures (3) Hyperbilirubinemia Status: Acute Problem Text: T bili is 1.7. Unclear cause. No current right upper quadrant symptoms. -Measure direct and indirect bili 07/10/16 - TB down to 0.9. (4) Anemia Status: Acute Problem Text: Borderline hemoglobin -Recheck in a.m. -Consider anemia workup outpatient; patient currently asymptomatic 07/10/16 - Hgb 11.3 (13.8 yesterday) (5) HLD (hyperlipidemia) Status: Chronic Problem Text: continue home statin Plan / VTE VTE Prophylaxis Ordered?: Yes (previously on teds, however with history of prostate cancer Will anticoagulate with heparin) Plan / Urinary Catheter Reason for insertion/continuin: Acute obstruct/retention Plan Plan Text Attending attestation: I saw and evaluated the patient, and agree with the plan of care as discussed and documented above. Александр Gandhi MD Subjective Review of Systems CC/HPI The patient is a 60-year-old male admitted with a reason for visit of Intra- Abdominal Fluid;Sirs. Events since last encounter Pt states he is feeling better. has drains in place. Denies CP, SOB, Abd pain. Constitutional: Denies: Chills, Fever Pulmonary: Denies: Dyspnea Cardiovascular: Denies: Chest Pain Gastrointestinal: Denies: Abdominal Pain, Nausea, Vomiting Objective Physical Examination General Exam: Positive: Alert, No Acute Distress Eye Exam: Positive: Conjunctiva & lids normal, Negative: Sclera icteric ENT Exam: Positive: Mucous membr. moist/pink, Nares Patent Neck Exam: Negative: JVD, thyromegaly Chest Exam: Positive: Clear to auscultation, Normal air movement, Negative: Rales, Rhonchi, Wheezing Heart Exam: Positive: Normal S1, Normal S2, Rate Normal, Negative: Murmurs, Rubs Abdomen Exam: Positive: Normal bowel sounds, Other (bilateral drains in place) , Soft, Negative: Hepatospenomegaly, Hernia, Mass, Tenderness Male Exam: Positive: Normal Genital Exam Extremity Exam: Positive: Normal pulses, Negative: Clubbing, Cyanosis, Edema Skin Exam: Positive: Nl turgor and temperature, Negative: Rash Vital Signs/I&O Vital Signs Date Time Temp Pulse Resp B/P Pulse Ox O2 Delivery O2 Flow Rate FiO2 07/10/16 06:20 96.3 79 16 120/75 93 Room Air I&O- Last 24 Hours up to 6 AM 07/10/16 06:00 Intake Total 1510 ml Output Total 910 ml Balance 600 ml Laboratory Data Labs 24H Laboratory Tests 2 07/09/16 19:43: Vancomycin Level Trough 13.7 07/10/16 06:09: Aspartate Amino Transf (AST/SGOT) 52H, Alanine Aminotransferase (ALT/SGPT) 59, Alkaline Phosphatase 113, Total Bilirubin 0.9, Direct Bilirubin 0.5H, Albumin 2.1#L, Albumin/Globulin Ratio 0.53L, Anion Gap 6L, White Blood Count 10.8H, Red Blood Count 4.11L, Hemoglobin 11.3#L, Hematocrit 33.7L, Mean Corpuscular Volume 81.9, Mean Corpuscular Hemoglobin 27.5, Mean Corpuscular Hemoglobin Concent 33.6 , Red Cell Distribution Width 13.7, Platelet Count 290, Neutrophils (%) (Auto) 89.2H, Lymphocytes (%) (Auto) 2.1L, Monocytes (%) (Auto) 5.3H, Eosinophils (%) ( Auto) 0.4, Basophils (%) (Auto) 2.0H, Neutrophils # (Auto) 9.6H, Lymphocytes # ( Auto) 0.3L, Monocytes # (Auto) 0.6, Eosinophils # (Auto) 0.0, Basophils # (Auto ) 0.2, Calcium Level 8.0L, Glomerular Filtration Rate > 60.0, Large Unclassified Cells # 0.1, Large Unclassified Cells % 1.2, Prothromb Time International Ratio 1.17, Prothrombin Time 15.0H, Total Protein 6.1L CBC/BMP Laboratory Tests 07/10/16 06:09 Red Blood Count 4.11 L, Mean Corpuscular Volume 81.9, Mean Corpuscular Hemoglobin 27.5, Mean Corpuscular Hemoglobin Concent 33.6, Red Cell Distribution Width 13.7, Neutrophils (%) (Auto) 89.2 H, Lymphocytes (%) (Auto) 2.1 L, Monocytes (%) (Auto) 5.3 H, Eosinophils (%) (Auto) 0.4, Basophils (%) ( Auto) 2.0 H, Neutrophils # (Auto) 9.6 H, Lymphocytes # (Auto) 0.3 L, Monocytes # (Auto) 0.6, Eosinophils # (Auto) 0.0, Basophils # (Auto) 0.2 Microbiology Microbiology 07/08/16 Blood Culture - Preliminary, Resulted No growth after 24 hours . All specim... 07/08/16 Blood Culture - Preliminary, Resulted No growth after 24 hours . All specim... 07/09/16 Gram Stain - Final, Resulted 07/09/16 Body Fluid Culture - Preliminary, Resulted Staphylococcus Aureus 07/08/16 Gastrointestinal Tract Panel (PCR) - Final, Complete Enteropathogenic E.coli 07/08/16 Influenza Virus Type A Antigen - Final, Complete 07/08/16 Influenza Virus Type B Antigen - Final, Complete 07/08/16 Urine Culture - Final, Complete 07/09/16 Anaerobic Culture, Received Pending 07/09/16 Gram Stain - Final, Resulted 07/09/16 Body Fluid Culture, Resulted Pending 07/09/16 Anaerobic Culture, Resulted Pending Rayshawn Hicks Jul 10, 2016 09:40 АЛЕКСАНДР GANDHI MD Jul 12, 2016 12:14
[2016-07-10] MEDS: NS 1,000 ML IV SCH ×2 (13:12→18:19)
[2016-07-10 14:00] VITALS: BP 140/81
--- NOTE | 2016-07-10 19:52 | EDDOCDS ---
Physician Documentation [facility] Name: Linden Mart Age: 60 yrs Sex: Male : 1955 Arrival Date: 07/08/2016 Time: 14:03 Bed 21 Private MD: Gene Munoz MD Disposition: 07/08/16 16:39 Hospitalization ordered by Gayatri Jackson for Inpatient Admission. Preliminary diagnosis are Other hydronephrosis - lymphoceles, Fever, unspecified. - Bed requested for 4 [place]. - Status is Inpatient Admission. ms2 - Condition is Stable. - Problem is new. - Symptoms have improved. Historical: - Allergies: no known allergies; - Home Meds: 1. atorvastatin 10 mg oral tab 1 tab once daily (Last dose: 07/07/2016) 2. hydrochlorothiazide 12.5 mg Oral tab 1 tab once daily (Last dose: 07/07/2016) 3. Advil 200 mg Oral tab 1 tab every 4-6 hours (Last dose: 07/08/2016 05:00) - PMHx: Hypercholesterolemia; Cancer, Prostate; - PSHx: prostate Surgery; Hernia repair- Umbilical; Right Shoulder Surgery; - Social history: Smoking status: Patient states was never smoker of tobacco. No barriers to communication noted, The patient speaks fluent [place]. - Family history: Not pertinent. - : The pt / caregiver states he / she is not on anticoagulants. Home medication list is obtained from pill bottles. - Exposure Risk Screening:: None identified. Vital Signs: 07/08 14:04 BP 131 / 77; Pulse 112; Resp 20; Temp 101.9(O); Pulse Ox 99% on R/A; Weight 108.86 kg / elp 240 lbs (R); Height 5 ft. 11 in. (180.34 cm) (R); Pain 5/10; 16:23 BP 128 / 76; Pulse 107; Resp 20 S; Pulse Ox 93% on R/A; ms2 17:36 BP 131 / 81; Pulse 94; Resp 20 S; Pulse Ox 95% on R/A; ms2 18:46 BP 137 / 86; Pulse 69; Resp 20 S; Temp 100.2(O); Pulse Ox 96% on R/A; Pain 2/10; ms2 14:04 Body Mass Index 33.47 (108.86 kg, 180.34 cm) elp MDM: 14:55 Undress patient appropriately for examination ordered. sd1 14:55 Obtain sample by nasopharyngeal swab ordered. sd1 14:56 NS 0.9% 1000 ml IV at 100 mL/hr continuous ordered. sd1 14:56 Acetaminophen Tablet 650 mg PO once ordered. sd1 14:56 Amylase Ordered. EDMS 14:56 Basic Metabolic Profile Ordered. EDMS 14:56 CBC with Diff Ordered. EDMS 14:56 Lipase Ordered. EDMS 14:56 Liver Profile Ordered. EDMS 14:56 Prothrombin Time Profile\E\INR Ordered. EDMS 14:56 Urinalysis Ordered. EDMS 14:56 Urine Culture Ordered. EDMS 14:56 -Influenza A&B Rapid Antigen - Nose Ordered. EDMS 14:56 morphine 4 mg IVP every 15 minutes; Document pain score/vitals after each dose (Hold if sd1 SBP < 90mmHg) x2 ordered. 14:56 Ondansetron 4 mg IVP once ordered. sd1 14:57 NOTHING BY MOUTH+DIET ordered. EDMS 14:59 -Blood Culture (Adults Only), peripheral from different site, or from device/port/PICC sd1 etc. if present ordered. 14:59 BED REQUEST+ADM ordered. EDMS 15:00 Lactic Acid (Newton tube on ice) Ordered. EDMS 15:00 -Blood Culture Ordered. EDMS 15:00 Chest, 2 View (pa\E\lat) Ordered. EDMS 15:18 -Blood Culture (Adults Only), peripheral from different site, or from device/port/PICC deg etc. if present complete. 15:19 BLOOD CULTURES Ordered. EDMS 15:47 cefTRIAXone 1 grams IVPB once over 30 mins; dilute in 50mL of NS or D5W ordered. sd1 16:01 [facility] Payment Agreement was scanned into [employer] and attached to record. gjb 16:01 Financial registration complete. gjb 16:23 Prothrombin Time Profile\E\INR Reviewed. sd1 16:23 Urinalysis Reviewed. sd1 16:23 -Influenza A&B Rapid Antigen - Nose Reviewed. sd1 16:31 GASTROINTESTINAL (GI) PANEL Ordered. EDMS 16:34 CBC with Diff Reviewed. sd1 16:36 Basic Metabolic Profile Reviewed. sd1 16:36 Liver Profile Reviewed. sd1 16:36 Amylase Reviewed. sd1 16:36 Lipase Reviewed. sd1 17:04 cefTRIAXone 1 grams IVPB once over 30 mins; dilute in 50mL of NS or D5W ordered. ms2 17:06 Admission / Observation Status ordered. EDMS 17:06 NPO DIET ordered. EDMS 17:17 CT guide needle placement Ordered. EDMS 07/09 09:49 T-Sheet-- Draft Copy was scanned into [employer] and attached to record. gb 09:49 Radiology Report was scanned into [employer] and attached to record. gb Administered Medications: 07/08 16:15 Drug: NS 0.9% 1000 ml [sodium chloride 0.9 % intravenous solution] Route: IV; Rate: 100 ms2 mL/hr; Site: left hand; 16:18 Drug: Acetaminophen 650 mg [acetaminophen 325 mg tablet (2 tabs)] Route: PO; ms2 16:19 Drug: Ondansetron 4 mg Route: IVP; Site: left hand; ms2 16:20 Drug: morphine 4 mg Route: IVP; Site: left hand; ms2 16:23 Follow up: BP 128 / 76; Pulse 107 bpm; Resp 20 bpm Spontaneous; Pulse Ox 93% RA ms2 16:23 Drug: cefTRIAXone 1 grams Route: IVPB; Infused Over: 30 mins; Site: left hand; ms2 Signatures: Dispatcher [employer] EDAL Teresa Willett MD MD sd1 Le Barnes, Greaser Operator Unit deg Soren Toussaint RN RN ms2 Kaylen Herrera, Reg Reg Bridgette Parks RN RN [id number] Jacqueline Stocktonb Renu Lou RN RN lmg The chart was reviewed and I authenticate all verbal orders and agree with the evaluation and treatment provided.Corrections: (The following items were deleted from the chart) 16:24 15:46 [place] ordered. sd1 sd1 16:32 16:30 GASTROINTESTINAL (GI) PANEL+MARIAM ordered. EDMS EDMS Attachments: 16:01 [facility] Payment Agreement malika 07/09 09:49 T-Sheet-- Draft Copy gb Chart Complete MTDD
--- NOTE | 2016-07-10 19:52 | EDDOCDS ---
Nurse's Notes [facility] Name: Linden Mart Age: 60 yrs Sex: Male : 1955 Arrival Date: 07/08/2016 Time: 14:03 Bed 21 Private MD: Gene Munoz MD Diagnosis: Other hydronephrosis-lymphoceles;Fever, unspecified Presentation: 07/08 14:14 Presenting complaint: Patient states: "I've got a blocked ureter. I just came from [facility] and because I went through urgent care they told me to come here.". Adult Sepsis Screening: The patient does not have new or worsening altered mentation. Patient's respiratory rate is less than 22. Systolic blood pressure is greater than 100. Patient has a qSOFA score of 0- Negative Sepsis Screen. Suicide/Homicide risk assessment- the patient denies having any suicidal and/or homicidal ideations and does not present with any other emotional, behavioral or mental health complaints. Status: Patient is not a caregiver services home or dependent. Transition of care: Patient was received from [facility]. 14:14 Acuity: OCTAVIO Level 3 jc4 14:14 Method Of Arrival: Walkin/Carried/Asstd jc4 Triage Assessment: 14:18 General: Appears in no apparent distress. jc4 14:18 Pain: Pain currently is 5 out of 10 on a pain scale. Pt Declines HIV testing. jc4 Historical: - Allergies: no known allergies; - Home Meds: 1. atorvastatin 10 mg oral tab 1 tab once daily (Last dose: 07/07/2016) 2. hydrochlorothiazide 12.5 mg Oral tab 1 tab once daily (Last dose: 07/07/2016) 3. Advil 200 mg Oral tab 1 tab every 4-6 hours (Last dose: 07/08/2016 05:00) - PMHx: Hypercholesterolemia; Cancer, Prostate; - PSHx: prostate Surgery; Hernia repair- Umbilical; Right Shoulder Surgery; - Social history: Smoking status: Patient states was never smoker of tobacco. No barriers to communication noted, The patient speaks fluent Swazi. - Family history: Not pertinent. - : The pt / caregiver states he / she is not on anticoagulants. Home medication list is obtained from pill bottles. - Exposure Risk Screening:: None identified. Screenin:48 Screening information is obtained from the patient. Fall risk: No risks identified. ms2 Assistance ADL's: requires no assistance with activities of daily living. Abuse/DV Screen: The patient / caregiver reports he/she is: not in a situation that causes fear, pain or injury. Nutritional screening: No deficits noted. Advance Directives: Currently, there is a health care proxy, -everett. There is an active DNR order but there is no copy available at this time. There is a living will, but a copy is not available at this time. There is an active Power of Vacuum Applicator Operator, see above. Advance directive information has been placed on a prior [facility] medical record, Further advance directive information is declined. home support is adequate. Assessment: 15:40 General: Appears in no apparent distress, with pt. Behavior is cooperative, first ms2 contact with pt. Neurological: Level of Consciousness is awake, alert, obeys commands. Respiratory: No deficits noted. Airway is patent Respiratory effort is even, unlabored, Respiratory pattern is regular, symmetrical. GI: Abdomen is non- distended. Derm: Skin is pink, warm & dry. Musculoskeletal: Range of motion intact in all extremities. 16:23 General: Appears in no apparent distress, medicated for pain per order. Behavior is ms2 cooperative. Neurological: No deficits noted. Respiratory: Airway is patent Respiratory effort is even, unlabored, Respiratory pattern is regular, symmetrical. Derm: Skin is pink, warm & dry. Musculoskeletal: Range of motion intact in all extremities. 17:36 General: Appears in no apparent distress, comfortable, Behavior is cooperative. ms2 Neurological: Level of Consciousness is awake, alert, obeys commands. Respiratory: No deficits noted. Derm: Skin is pink, warm & dry. Musculoskeletal: Range of motion intact in all extremities. 17:41 Adult Sepsis Screening: Accepted Exclusions- The patient does not have new or worsening ms2 altered mentation. Patient's respiratory rate is less than 22. Systolic blood pressure is greater than 100. Patient has a qSOFA score of 0- Negative Sepsis Screen. 18:20 General: Appears in no apparent distress, comfortable, Behavior is cooperative, aware ms2 has a room. Neurological: Level of Consciousness is awake, alert, obeys commands. Respiratory: No deficits noted. Airway is patent Respiratory effort is even, unlabored, Respiratory pattern is regular, symmetrical. Derm: Skin is pink, warm & dry. Musculoskeletal: Range of motion intact in all extremities. 18:45 Adult Sepsis Screening: The patient does not have new or worsening altered mentation. ms2 Patient's respiratory rate is less than 22. Systolic blood pressure is greater than 100. Patient has a qSOFA score of 0- Negative Sepsis Screen. General: Appears in no apparent distress, comfortable, Behavior is cooperative. General: Appears in no apparent distress. Pain: Pain currently is 4 out of 10 on a pain scale. Neurological: Level of Consciousness is awake, alert, obeys commands. Respiratory: No deficits noted. Airway is patent Respiratory effort is even, unlabored, Respiratory pattern is regular, symmetrical. GI: Abdomen is flat, non- distended. Derm: Skin is pink, warm & dry. Musculoskeletal: Range of motion intact in all extremities. Vital Signs: 14:04 BP 131 / 77; Pulse 112; Resp 20; Temp 101.9(O); Pulse Ox 99% on R/A; Weight 108.86 kg elp (R); Height 5 ft. 11 in. (180.34 cm) (R); Pain 5/10; 16:23 BP 128 / 76; Pulse 107; Resp 20 S; Pulse Ox 93% on R/A; ms2 17:36 BP 131 / 81; Pulse 94; Resp 20 S; Pulse Ox 95% on R/A; ms2 18:46 BP 137 / 86; Pulse 69; Resp 20 S; Temp 100.2(O); Pulse Ox 96% on R/A; Pain 2/10; ms2 14:04 Body Mass Index 33.47 (108.86 kg, 180.34 cm) [facility] Vitals: 14:04 Log In Time: July 08, 2016 at 14:01. [facility] ED Course: 14:04 Patient visited by Mine Peres PCA. elp 14:04 Gene Munoz is Private Physician. elp 14:04 Patient moved to Waiting elp 14:06 Patient visited by Mine Peres PCA. elp 14:06 Patient moved to Pre RCE elp 14:15 Triage Initiated jc4 14:22 Soren Toussaint,DIEUDONNE is Primary Nurse. jc4 14:22 Patient moved to 21 jc4 14:23 Teresa Willett MD is Attending Physician. sd1 14:41 Patient visited by Teresa Willett MD. sd1 15:40 Patient visited by Soren Toussaint RN. ms2 15:40 The patient / caregiver is instructed regarding the plan of care and ED course. ms2 15:40 -Influenza A&B Rapid Antigen - Nose Sent. ms2 15:40 Urinalysis Sent. ms2 15:40 Urine Culture Sent. ms2 15:48 Inserted saline lock: 20 gauge in left hand The patient tolerated the procedure well. ms2 No procedures done that require assistance. 15:51 Patient visited by Soren Toussaint RN. ms2 15:51 Amylase Sent. ms2 15:51 Basic Metabolic Profile Sent. ms2 15:51 CBC with Diff Sent. ms2 15:51 Lipase Sent. ms2 15:51 Liver Profile Sent. ms2 15:51 Prothrombin Time Profile\\E\\INR Sent. ms2 15:51 Lactic Acid (Newton tube on ice) Sent. ms2 16:01 [facility] [place] was scanned into [employer] and attached to record. gjb 16:02 -Blood Culture Sent. ms2 16:23 The patient / caregiver is instructed regarding the plan of care and ED course. ms2 16:23 IV is patent, is intact, is free of redness or swelling. solution is infusing as ms2 ordered. 16:39 Gayatri Jackson real estate assistant. ys2 16:39 Gayatri Jackson is Hospitalizing Provider. sd1 17:34 Patient visited by Soren Toussaint,DIEUDONNE. ms2 17:37 The patient / caregiver is instructed regarding the plan of care and ED course. ms2 17:37 IV is patent, is intact, is free of redness or swelling. solution is infusing as ms2 ordered. no reaction to iv antibiotic. 18:21 The patient / caregiver is instructed regarding the plan of care and ED course. ms2 18:21 IV is patent, is intact, is free of redness or swelling. solution is infusing as ms2 ordered. 18:45 Patient visited by Soren Toussaint RN. ms2 18:47 The patient / caregiver is instructed regarding the plan of care and ED course. ms2 18:47 IV is patent, is intact, is free of redness or swelling. ms2 07/09 09:49 T-Sheet-- Draft Copy was scanned into [employer] and attached to record. gb 09:49 Radiology Report was scanned into [employer] and attached to record. gb Administered Medications: 07/08 16:15 Drug: NS 0.9% 1000 ml [sodium chloride 0.9 % intravenous solution] Route: IV; Rate: 100 ms2 mL/hr; Site: left hand; 16:18 Drug: Acetaminophen 650 mg [acetaminophen 325 mg tablet (2 tabs)] Route: PO; ms2 16:19 Drug: Ondansetron 4 mg Route: IVP; Site: left hand; ms2 16:20 Drug: morphine 4 mg Route: IVP; Site: left hand; ms2 16:23 Follow up: BP 128 / 76; Pulse 107 bpm; Resp 20 bpm Spontaneous; Pulse Ox 93% RA ms2 16:23 Drug: cefTRIAXone 1 grams Route: IVPB; Infused Over: 30 mins; Site: left hand; ms2 Intake: 17:36 IV: 50.00ml (NS); Total: 50.00ml. ms2 18:46 PO: 100.00ml (Water); IV: 50.00ml (NS); Total: 200.00ml. ms2 Output: 18:46 Urine: 100.00ml (Voided); Total: 100.00ml. ms2 Order Results: Lab Order: Amylase; SPEC'M 07/08/16 15:52 Test: AMYLASE; Value: 26; Range: 25-115; Units: U/L; Status: F Lab Order: Basic Metabolic Profile; SPEC'M 07/08/16 15:52 Test: GLUCOSE, FASTING; Value: 115; Range: 70-105; Abnormal: Above high normal; Units: MG/DL; Status: F Test: BLOOD UREA NITROGEN; Value: 14; Range: 7-18; Units: MG/DL; Status: F Test: CREATININE FOR GFR; Value: 1.04; Range: 0.70-1.30; Units: MG/DL; Status: F Test: GLOMERULAR FILTRATION RATE; Value: > 60.0; Range: >56; Status: F Test: SODIUM LEVEL; Value: 136; Range: 136-145; Units: MEQ/L; Status: F Test: POTASSIUM SERUM; Value: 4.0; Range: 3.5-5.1; Units: MEQ/L; Status: F Test: CHLORIDE LEVEL; Value: 96; Range: 98-107; Abnormal: Below low normal; Units: MEQ/L; Status: F Test: CARBON DIOXIDE LEVEL; Value: 28; Range: 21-32; Units: MEQ/L; Status: F Test: ANION GAP; Value: 12; Range: 8-16; Units: MEQ/L; Status: F Test: CALCIUM LEVEL; Value: 8.7; Range: 8.5-10.1; Units: MG/DL; Status: F Test Note: ; Units are mL/min/1.73 m2 Chronic Kidney Disease Staging per NKF: Stage I & II GFR >=60 Normal to Mildly Decreased Stage III GFR 30-59 Moderately Decreased Stage IV GFR 15-29 Severely Decreased Stage V GFR <15 Very Little GFR Left ESRD GFR <15 on MANUFACTURING TEAM LEADER Lab Order: CBC with Diff; SPEC'M 07/08/16 15:52 Test: WHITE BLOOD COUNT; Value: 19.2; Range: 4.0-10.0; Abnormal: Above high normal; Units: K/mm3; Status: F Test: RED BLOOD COUNT; Value: 4.94; Range: 4.30-6.10; Units: M/mm3; Status: F Test: HEMOGLOBIN; Value: 13.8; Range: 14.0-18.0; Abnormal: Below low normal; Units: g/dl; Status: F Test: HEMATOCRIT; Value: 39.2; Range: 42.0-52.0; Abnormal: Below low normal; Units: %; Status: F Test: MEAN CORPUSCULAR VOLUME; Value: 79.3; Range: 80.0-96.0; Abnormal: Below low normal; Units: fl; Status: F Test: MEAN CORPUSCULAR HEMOGLOBIN; Value: 28.0; Range: 27.0-33.0; Units: pg; Status: F Test: MEAN CORPUSCULAR HGB CONC; Value: 35.3; Range: 32.0-36.5; Units: g/dl; Status: F Test: RED CELL DISTRIBUTION WIDTH; Value: 13.6; Range: 11.5-14.5; Units: %; Status: F Test: PLATELET COUNT, AUTOMATED; Value: 346; Range: 150-450; Units: k/mm3; Status: F Test: NEUTROPHILS %; Value: 89.0; Range: 36.0-66.0; Abnormal: Above high normal; Units: %; Status: F Test: LYMPH %; Value: 2.9; Range: 24.0-44.0; Abnormal: Below low normal; Units: %; Status: F Test: MONO %; Value: 6.2; Range: 0.0-5.0; Abnormal: Above high normal; Units: %; Status: F Test: EOS %; Value: 0.1; Range: 0.0-3.0; Units: %; Status: F Test: BASO %; Value: 0.6; Range: 0.0-1.0; Units: %; Status: F Test: LARGE UNSTAINED CELL %; Value: 1.1; Range: 0.0-4.0; Units: %; Status: F Test: NEUTROPHILS #; Value: 17.1; Range: 1.8-7.7; Abnormal: Above high normal; Units: K/mm3; Status: F Test: LYMPH #; Value: 0.8; Range: 1.5-4.5; Abnormal: Below low normal; Units: K/mm3; Status: F Test: MONO #; Value: 1.2; Range: 0.0-0.8; Abnormal: Above high normal; Units: K/mm3; Status: F Test: EOS #; Value: 0.0; Range: 0.0-0.50; Units: K/mm3; Status: F Test: BASO #; Value: 0.1; Range: 0.0-0.2; Units: K/mm3; Status: F Test: LARGE UNSTAINED CELL #; Value: 0.2; Range: 0.0-0.4; Units: K/mm3; Status: F Lab Order: Lipase; SPEC'M 07/08/16 15:52 Test: LIPASE; Value: 87; Range: 73-393; Units: U/L; Status: F Lab Order: Liver Profile; SPEC'M 07/08/16 15:52 Test: AST/SGOT; Value: 12; Range: 15-37; Abnormal: Below low normal; Units: U/L; Status: F Test: ALT/SGPT; Value: 28; Range: 12-78; Units: U/L; Status: F Test: ALKALINE PHOSPHATASE; Value: 79; Range: 45-117; Units: U/L; Status: F Test: BILIRUBIN,TOTAL; Value: 1.7; Range: 0.2-1.0; Abnormal: Above high normal; Units: MG/DL; Status: F Test: BILIRUBIN,DIRECT; Value: 0.7; Range: 0.0-0.2; Abnormal: Above high normal; Units: MG/DL; Status: F Test: TOTAL PROTEIN; Value: 6.7; Range: 6.4-8.2; Units: GM/DL; Status: F Test: ALBUMIN; Value: 3.1; Range: 3.2-5.2; Abnormal: Below low normal; Units: GM/DL; Status: F Test: ALBUMIN/GLOBULIN RATIO; Value: 0.86; Range: 1.00-1.93; Abnormal: Below low normal; Status: F Lab Order: Prothrombin Time Profile\\E\\INR; [facility] 07/08/16 15:52 Test: PROTHROMBIN TIME; Value: 14.8; Range: 12.3-14.5; Abnormal: Above high normal; Units: SECONDS; Status: F Test: INR; Value: 1.15; Status: F Test Note: ; THERAPUTIC HUMAN INR VALUES INDICATIONS NORMAL RANGES PROPHYLAXIS/TREATMENT OF: VENOUS THROMBOSIS 2.0-3.0 PULMONARY EMBOLISM 2.0-3.0 PREVENTION OF SYSTEMIC EMBOLISM FROM: TISSUE HEART VALVES 2.0-3.0 ACUTE MYOCARDIAL INFARCTION 2.0-3.0 VALVULAR HEART DISEASE 2.0-3.0 ATRIAL FIBRILLATION 2.0-3.0 MECHANICAL VALVES(HIGH RISK) 2.5-3.5 RECURRENT MYOCARDIAL INFARCTION 2.5-3.5 Lab Order: Urinalysis; [facility] 07/08/16 15:52 Test: APPEARANCE, URINE; Value: CLEAR; Range: CLEAR; Status: F Test: COLOR, URINE; Value: YELLOW; Range: YELLOW; Status: F Test: PH,URINE; Value: 5.0; Range: 5.0-9.0; Units: UNITS; Status: F Test: SPECIFIC GRAVITY URINE AUTO; Value: 1.048; Range: 1.002-1.035; Status: F Test: PROTEIN, URINE AUTO; Value: 2+; Range: NEGATIVE; Abnormal: Above high normal; Units: mg/dL; Status: F Test: GLUCOSE, URINE (UA) AUTO; Value: NEGATIVE; Range: NEGATIVE; Units: mg/dL; Status: F Test: KETONE, URINE AUTO; Value: 1+; Range: NEGATIVE; Abnormal: Above high normal; Units: mg/dL; Status: F Test: UROBILINOGEN, URINE AUTO; Value: 2.0; Range: 0.0-2.0; Abnormal: Above high normal; Units: mg/dL; Status: F Test: BILIRUBIN, URINE AUTO; Value: NEGATIVE; Range: NEGATIVE; Status: F Test: NITRITE, URINE AUTO; Value: NEGATIVE; Range: NEGATIVE; Status: F Test: LEUKOCYTE ESTERASE, URINE AUTO; Value: NEGATIVE; Range: NEGATIVE; Status: F Test: BLOOD, URINE BLOOD; Value: 1+; Range: NEGATIVE; Abnormal: Above high normal; Status: F Test: WBC, URINE AUTO; Value: 2; Range: 0-3; Units: /HPF; Status: F Test: RBC, URINE AUTO; Value: 7; Range: 0-3; Abnormal: Above high normal; Units: /HPF; Status: F Test: BACTERIA, URINE AUTO; Value: NEGATIVE; Range: NEGATIVE; Status: F Test: SQUAMOUS EPITHELIAL CELL UR AU; Value: 0; Range: 0-6; Units: /HPF; Status: F Test: HYALINE CAST, URINE AUTO; Value: 0; Range: 0-1; Units: /LPF; Status: F Lab Order: -Influenza A&B Rapid Antigen - Nose; SPEC'M 07/08/16 15:52 Test: INFLUENZA A RAPID SCR by ICA; Value: INFLUENZA A RESULTS NEGATIVE; Status: F Test: INFLUENZA A RAPID SCR by ICA; Value: Comments:; Status: F Test: INFLUENZA B RAPID SCR by ICA; Value: INFLUENZA B RESULTS NEGATIVE; Status: F Test Note: ; The Influenza test is a direct rapid immunoassay for the qualitative detection of Influenza viral antigen. Cell culture (Viral Culture) testing should be considered to confirm NEGATIVE results and to assist in detecting other viruses that can provide similar clinical symptoms. Please contact the lab within 24 hours ([phone]) if confirmatory testing is desired. Lab Order: Lactic Acid (Newton tube on ice); SPEC'M 07/08/16 15:52 Test: LACTIC ACID LEVEL, LACTATE; Value: 1.6; Range: 0.4-2.0; Units: MMOL/L; Status: F Outcome: 16:39 Decision to Hospitalize by Provider. sd1 18:47 Discharge Assessment: patient administered narcotics - yes. Patient was admitted to the [address] or transferred to another facility. The following High Risk Discharge criteria are identified: None. Admitted to Med/Surg accompanied by tech, family with patient, via stretcher, with chart. Condition: stable. No special radiology studies were completed. Property :Personal belongings accompany Pt. 18:51 Patient left the ED. [facility] [place] Signatures: Teresa Willett MD MD sd1 Soren Toussaint,RN RN ms2 Kaylen Herrera, Reg Reg gb Bridgette Stroud RN RN jc4 Mine Peres, Jacqueline Wolf Yu ys2 Corrections: (The following items were deleted from the chart) 17:04 16:15 cefTRIAXone 1 grams IVPB in left hand over 30 mins [facility] [place] ms2 Chart Complete MTDD
--- NOTE | 2016-07-10 19:52 | EDDOCDS ---
Physician Documentation [facility] Name: Linden Mart Age: 60 yrs Sex: Male : 1955 Arrival Date: 07/08/2016 Time: 14:03 Bed 21 Private MD: Gene Munoz MD Disposition: 07/08/16 16:39 Hospitalization ordered by Gayatri Jackson for Inpatient Admission. Preliminary diagnosis are Other hydronephrosis - lymphoceles, Fever, unspecified. - Bed requested for 4 [place]. - Status is Inpatient Admission. ms2 - Condition is Stable. - Problem is new. - Symptoms have improved. Historical: - Allergies: no known allergies; - Home Meds: 1. atorvastatin 10 mg oral tab 1 tab once daily (Last dose: 07/07/2016) 2. hydrochlorothiazide 12.5 mg Oral tab 1 tab once daily (Last dose: 07/07/2016) 3. Advil 200 mg Oral tab 1 tab every 4-6 hours (Last dose: 07/08/2016 05:00) - PMHx: Hypercholesterolemia; Cancer, Prostate; - PSHx: prostate Surgery; Hernia repair- Umbilical; Right Shoulder Surgery; - Social history: Smoking status: Patient states was never smoker of tobacco. No barriers to communication noted, The patient speaks fluent Icelandic. - Family history: Not pertinent. - : The pt / caregiver states he / she is not on anticoagulants. Home medication list is obtained from pill bottles. - Exposure Risk Screening:: None identified. Vital Signs: 07/08 14:04 BP 131 / 77; Pulse 112; Resp 20; Temp 101.9(O); Pulse Ox 99% on R/A; Weight 108.86 kg / elp 240 lbs (R); Height 5 ft. 11 in. (180.34 cm) (R); Pain 5/10; 16:23 BP 128 / 76; Pulse 107; Resp 20 S; Pulse Ox 93% on R/A; ms2 17:36 BP 131 / 81; Pulse 94; Resp 20 S; Pulse Ox 95% on R/A; ms2 18:46 BP 137 / 86; Pulse 69; Resp 20 S; Temp 100.2(O); Pulse Ox 96% on R/A; Pain 2/10; ms2 14:04 Body Mass Index 33.47 (108.86 kg, 180.34 cm) elp MDM: 14:55 Undress patient appropriately for examination ordered. sd1 14:55 Obtain sample by nasopharyngeal swab ordered. sd1 14:56 NS 0.9% 1000 ml IV at 100 mL/hr continuous ordered. sd1 14:56 Acetaminophen Tablet 650 mg PO once ordered. sd1 14:56 Amylase Ordered. EDMS 14:56 Basic Metabolic Profile Ordered. EDMS 14:56 CBC with Diff Ordered. EDMS 14:56 Lipase Ordered. EDMS 14:56 Liver Profile Ordered. EDMS 14:56 Prothrombin Time Profile\E\INR Ordered. EDMS 14:56 Urinalysis Ordered. EDMS 14:56 Urine Culture Ordered. EDMS 14:56 -Influenza A&B Rapid Antigen - Nose Ordered. EDMS 14:56 morphine 4 mg IVP every 15 minutes; Document pain score/vitals after each dose (Hold if sd1 SBP < 90mmHg) x2 ordered. 14:56 Ondansetron 4 mg IVP once ordered. sd1 14:57 NOTHING BY MOUTH+DIET ordered. EDMS 14:59 -Blood Culture (Adults Only), peripheral from different site, or from device/port/PICC sd1 etc. if present ordered. 14:59 BED REQUEST+ADM ordered. EDMS 15:00 Lactic Acid (Newton tube on ice) Ordered. EDMS 15:00 -Blood Culture Ordered. EDMS 15:00 Chest, 2 View (pa\E\lat) Ordered. EDMS 15:18 -Blood Culture (Adults Only), peripheral from different site, or from device/port/PICC deg etc. if present complete. 15:19 BLOOD CULTURES Ordered. EDMS 15:47 cefTRIAXone 1 grams IVPB once over 30 mins; dilute in 50mL of NS or D5W ordered. sd1 16:01 [facility] Payment Agreement was scanned into [employer] and attached to record. gjb 16:01 Financial registration complete. gjb 16:23 Prothrombin Time Profile\E\INR Reviewed. sd1 16:23 Urinalysis Reviewed. sd1 16:23 -Influenza A&B Rapid Antigen - Nose Reviewed. sd1 16:31 GASTROINTESTINAL (GI) PANEL Ordered. EDMS 16:34 CBC with Diff Reviewed. sd1 16:36 Basic Metabolic Profile Reviewed. sd1 16:36 Liver Profile Reviewed. sd1 16:36 Amylase Reviewed. sd1 16:36 Lipase Reviewed. sd1 17:04 cefTRIAXone 1 grams IVPB once over 30 mins; dilute in 50mL of NS or D5W ordered. ms2 17:06 Admission / Observation Status ordered. EDMS 17:06 NPO DIET ordered. EDMS 17:17 CT guide needle placement Ordered. EDMS 07/09 09:49 T-Sheet-- Draft Copy was scanned into [employer] and attached to record. gb 09:49 Radiology Report was scanned into [employer] and attached to record. gb Administered Medications: 07/08 16:15 Drug: NS 0.9% 1000 ml [sodium chloride 0.9 % intravenous solution] Route: IV; Rate: 100 ms2 mL/hr; Site: left hand; 16:18 Drug: Acetaminophen 650 mg [acetaminophen 325 mg tablet (2 tabs)] Route: PO; ms2 16:19 Drug: Ondansetron 4 mg Route: IVP; Site: left hand; ms2 16:20 Drug: morphine 4 mg Route: IVP; Site: left hand; ms2 16:23 Follow up: BP 128 / 76; Pulse 107 bpm; Resp 20 bpm Spontaneous; Pulse Ox 93% RA ms2 16:23 Drug: cefTRIAXone 1 grams Route: IVPB; Infused Over: 30 mins; Site: left hand; ms2 Signatures: Dispatcher [employer] EDVA Teresa Willett MD MD sd1 Le Barnes, Station Operator Unit deg Soren Toussaint RN RN ms2 Kaylen Herrera, Reg Reg Bridgette Parks RN RN jc4 Jacqueline Stocktonb Renu Lou RN RN lmg The chart was reviewed and I authenticate all verbal orders and agree with the evaluation and treatment provided.Corrections: (The following items were deleted from the chart) 16:24 15:46 [place]man ordered. sd1 sd1 16:32 16:30 GASTROINTESTINAL (GI) PANEL+MARIAM ordered. EDMS EDMS Attachments: 16:01 [facility] [place] Agreement malika 07/09 09:49 T-Sheet-- Draft Copy gb Chart Complete MTDD
[2016-07-10] MEDS: PERCOCET 5MG/325MG TAB PO PRN (19:57)
[2016-07-10 20:40] VITALS: BP 121/66
[2016-07-11] MEDS: PIPERACILLIN/TAZOBACTAM SOD 3.375 GM in D5W MINI-BAG PLUS 50 ML IV SCH ×4 (01:21→20:24)
[2016-07-11 05:15] VITALS: BP 128/76
[2016-07-11] MEDS: NS 1,000 ML IV SCH ×3 (05:18→20:24)
[2016-07-11] MEDS: HEPARIN SOD (PORCINE) 5000 UNITS/ML VIAL SQ SCH ×3 (05:18→22:21)
[2016-07-11] MEDS: VANCOMYCIN HCL 1,000 MG, VIAL MATE ADAPTER 1 EACH in D5W 250 ML IV SCH (05:18)
[2016-07-11 06:23] LABS: BASO % 0.2 % (0.0-1.0); EOS # 0.1 K/mm3 (0.0-0.50); EOS % 1.2 % (0.0-3.0); LARGE UNSTAINED CELL # 0.1 K/mm3 (0.0-0.4); LARGE UNSTAINED CELL % 1.3 % (0.0-4.0); LYMPH # 0.4 K/mm3 (1.5-4.5); LYMPH % 5.7 % (24.0-44.0); MEAN CORPUSCULAR HEMOGLOBIN 27.5 pg (27.0-33.0); MEAN CORPUSCULAR HGB CONC 33.6 g/dl (32.0-36.5); MEAN CORPUSCULAR VOLUME 81.8 fl (80.0-96.0); MONO # 0.5 K/mm3 (0.0-0.8); MONO % 7.1 % (0.0-5.0); NEUTROPHILS # 6.2 K/mm3 (1.8-7.7); NEUTROPHILS % 84.5 % (36.0-66.0); PLATELET COUNT, AUTOMATED 326 k/mm3 (150-450); RED CELL DISTRIBUTION WIDTH 12.7 % (11.5-14.5); WHITE BLOOD COUNT 7.3 K/mm3 (4.0-10.0)
[2016-07-11 06:43] LABS: ALBUMIN 2.3 GM/DL (3.2-5.2); ALBUMIN/GLOBULIN RATIO 0.66 (1.00-1.93); ALKALINE PHOSPHATASE 126 U/L (45-117); ALT/SGPT 56 U/L (12-78); ANION GAP 9 MEQ/L (8-16); AST/SGOT 46 U/L (15-37); BILIRUBIN,TOTAL 0.6 MG/DL (0.2-1.0); BLOOD UREA NITROGEN 11 MG/DL (7-18); CALCIUM LEVEL 7.8 MG/DL (8.5-10.1); CARBON DIOXIDE LEVEL 29 MEQ/L (21-32); CHLORIDE LEVEL 102 MEQ/L (98-107); CREATININE FOR GFR 0.87 MG/DL (0.70-1.30); GLOMERULAR FILTRATION RATE > 60.0 (>56); GLUCOSE, FASTING 113 MG/DL (70-105); POTASSIUM SERUM 3.9 MEQ/L (3.5-5.1); SODIUM LEVEL 140 MEQ/L (136-145); TOTAL PROTEIN 5.8 GM/DL (6.4-8.2)
--- NOTE | 2016-07-11 07:50 | IPNPDOC ---
Assessment/Plan Date Seen The patient was seen on 07/11/16. Problems Problems: (1) Intra-abdominal fluid Status: Acute Response to Treatment: Stable Discussed With: Nail Puller, Pt and Family Services Problem Text: Awaiting results from IR drainage. We'll discuss with Dr. Caruso regarding possible surgical intervention. However, he is not here until Tuesday. Patient will need to be monitored until sirs has resolved and cultures are negative. -Continue empiric antibiotics; Zosyn day 1; initiated 1999 on July 08 -Follow up fluid analysis -Discuss with Dr. Caruso 07/10/16 - IV Zosyn and Vanco day 2. Dr Kaiser following. 07/11/16 - IV Zosyn and Vanco day 3. Cx grew Staph aureus. Dr Kaiser following. (2) SIRS (systemic inflammatory response syndrome) Status: Acute Problem Text: Unknown source, however patient had positive UA. He also had a large quantity of fluid in the pelvis, which was just drained. He also screen positive for enterotoxic Escherichia coli. He is not currently complaining of any bowel symptoms, so sirs may be due to urosepsis or intra-abdominal infection. Awaiting cultures. -Continue empiric antibiotics for possible sepsis versus inflammatory response -Follow up urine and fluid cultures (3) Hyperbilirubinemia Status: Acute Problem Text: T bili is 1.7. Unclear cause. No current right upper quadrant symptoms. -Measure direct and indirect bili 07/10/16 - TB down to 0.9. 07/11/16 - TB down to 0.6. (4) Anemia Status: Acute Problem Text: Borderline hemoglobin -Recheck in a.m. -Consider anemia workup outpatient; patient currently asymptomatic 07/10/16 - Hgb 11.3 (13.8 yesterday) 07/11/16 - Hgb 11.1 (5) HLD (hyperlipidemia) Status: Chronic Problem Text: continue home statin Plan / VTE VTE Prophylaxis Ordered?: Yes (previously on teds, however with history of prostate cancer Will anticoagulate with heparin) Plan / Urinary Catheter Reason for insertion/continuin: Acute obstruct/retention Subjective Review of Systems CC/HPI The patient is a 60-year-old male admitted with a reason for visit of Intra- Abdominal Fluid;Sirs. Events since last encounter Pt denies any new issues. Denies Abd pain, CP, SOB, Fevers. Constitutional: Denies: Chills, Fever Pulmonary: Denies: Dyspnea Cardiovascular: Denies: Chest Pain Gastrointestinal: Denies: Abdominal Pain, Nausea, Vomiting Objective Physical Examination General Exam: Positive: Alert, No Acute Distress Eye Exam: Positive: Conjunctiva & lids normal, Negative: Sclera icteric ENT Exam: Positive: Mucous membr. moist/pink, Nares Patent Neck Exam: Negative: JVD, thyromegaly Chest Exam: Positive: Clear to auscultation, Normal air movement, Negative: Rales, Rhonchi, Wheezing Heart Exam: Positive: Normal S1, Normal S2, Rate Normal, Negative: Murmurs, Rubs Abdomen Exam: Positive: Normal bowel sounds, Other (bilateral drains in place) , Soft, Negative: Hepatospenomegaly, Hernia, Mass, Tenderness Male Exam: Positive: Normal Genital Exam Extremity Exam: Positive: Normal pulses, Negative: Clubbing, Cyanosis, Edema Skin Exam: Positive: Nl turgor and temperature, Negative: Rash Vital Signs/I&O Vital Signs Date Time Temp Pulse Resp B/P Pulse Ox O2 Delivery O2 Flow Rate FiO2 07/11/16 05:15 98.9 81 16 128/76 96 Room Air I&O- Last 24 Hours up to 6 AM 07/11/16 06:00 Intake Total 4440 ml Output Total 2775 ml Balance 1665 ml Laboratory Data Labs 24H Laboratory Tests 2 07/11/16 05:45: Blood Urea Nitrogen 11, Creatinine 0.87, Sodium Level 140, Potassium Level 3.9, Chloride Level 102, Carbon Dioxide Level 29, Calcium Level 7.8L, Aspartate Amino Transf (AST/SGOT) 46H, Alanine Aminotransferase (ALT/SGPT) 56, Alkaline Phosphatase 126H, Total Bilirubin 0.6, Total Protein 5.8L, Albumin 2.3L, Albumin /Globulin Ratio 0.66L, Anion Gap 9, White Blood Count 7.3, Red Blood Count 4.02L , Hemoglobin 11.1L, Hematocrit 32.9L, Mean Corpuscular Volume 81.8, Mean Corpuscular Hemoglobin 27.5, Mean Corpuscular Hemoglobin Concent 33.6, Red Cell Distribution Width 12.7, Platelet Count 326, Neutrophils (%) (Auto) 84.5H, Lymphocytes (%) (Auto) 5.7L, Monocytes (%) (Auto) 7.1H, Eosinophils (%) (Auto) 1.2, Basophils (%) (Auto) 0.2, Neutrophils # (Auto) 6.2, Lymphocytes # (Auto) 0.4L, Monocytes # (Auto) 0.5, Eosinophils # (Auto) 0.1, Basophils # (Auto) 0.0, Glomerular Filtration Rate > 60.0, Large Unclassified Cells # 0.1, Large Unclassified Cells % 1.3 CBC/BMP Laboratory Tests 07/11/16 05:45 Calcium Level 7.8 L, Aspartate Amino Transf (AST/SGOT) 46 H, Alanine Aminotransferase (ALT/SGPT) 56, Alkaline Phosphatase 126 H, Total Bilirubin 0.6 , Total Protein 5.8 L, Albumin 2.3 L, Red Blood Count 4.02 L, Mean Corpuscular Volume 81.8, Mean Corpuscular Hemoglobin 27.5, Mean Corpuscular Hemoglobin Concent 33.6, Red Cell Distribution Width 12.7, Neutrophils (%) (Auto) 84.5 H, Lymphocytes (%) (Auto) 5.7 L, Monocytes (%) (Auto) 7.1 H, Eosinophils (%) (Auto ) 1.2, Basophils (%) (Auto) 0.2, Neutrophils # (Auto) 6.2, Lymphocytes # (Auto) 0.4 L, Monocytes # (Auto) 0.5, Eosinophils # (Auto) 0.1, Basophils # (Auto) 0.0 Microbiology Microbiology 07/08/16 Blood Culture - Preliminary, Resulted No Growth after 48 hours. All Specime... 07/08/16 Blood Culture - Preliminary, Resulted No Growth after 48 hours. All Specime... 07/09/16 Gram Stain - Final, Complete 07/09/16 Body Fluid Culture - Final, Complete Staphylococcus Aureus 07/08/16 Gastrointestinal Tract Panel (PCR) - Final, Complete Enteropathogenic E.coli 07/08/16 Influenza Virus Type A Antigen - Final, Complete 07/08/16 Influenza Virus Type B Antigen - Final, Complete 07/08/16 Urine Culture - Final, Complete 07/09/16 Anaerobic Culture, Received Pending 07/09/16 Gram Stain - Final, Resulted 07/09/16 Body Fluid Culture - Final, Resulted 07/09/16 Anaerobic Culture, Resulted Pending Rayshawn Hicks RPA-C Jul 11, 2016 07:50
[2016-07-11] MEDS: ATORVASTATIN 10 MG TAB PO SCH (08:35)
[2016-07-11 14:00] VITALS: BP 121/78
[2016-07-11] MEDS: NAFCILLIN SOD 2 GM in D5W MINI-BAG PLUS 100 ML IV SCH ×3 (14:03→22:20)
[2016-07-11 22:00] VITALS: BP 119/67
[2016-07-12] MEDS: PIPERACILLIN/TAZOBACTAM SOD 3.375 GM in D5W MINI-BAG PLUS 50 ML IV SCH ×2 (02:09→08:00)
[2016-07-12] MEDS: NAFCILLIN SOD 2 GM in D5W MINI-BAG PLUS 100 ML IV SCH ×6 (02:15→21:49)
[2016-07-12 05:58] LABS: BASO % 0.2 % (0.0-1.0); EOS # 0.2 K/mm3 (0.0-0.50); EOS % 2.4 % (0.0-3.0); LARGE UNSTAINED CELL # 0.2 K/mm3 (0.0-0.4); LARGE UNSTAINED CELL % 2.2 % (0.0-4.0); LYMPH # 0.4 K/mm3 (1.5-4.5); LYMPH % 5.9 % (24.0-44.0); MEAN CORPUSCULAR HEMOGLOBIN 27.9 pg (27.0-33.0); MEAN CORPUSCULAR HGB CONC 33.8 g/dl (32.0-36.5); MEAN CORPUSCULAR VOLUME 82.6 fl (80.0-96.0); MONO # 0.4 K/mm3 (0.0-0.8); MONO % 6.1 % (0.0-5.0); NEUTROPHILS # 5.9 K/mm3 (1.8-7.7); NEUTROPHILS % 83.2 % (36.0-66.0); PLATELET COUNT, AUTOMATED 380 k/mm3 (150-450); RED CELL DISTRIBUTION WIDTH 12.7 % (11.5-14.5); WHITE BLOOD COUNT 7.1 K/mm3 (4.0-10.0)
[2016-07-12 06:00] VITALS: BP 130/77
[2016-07-12] MEDS: HEPARIN SOD (PORCINE) 5000 UNITS/ML VIAL SQ SCH ×3 (06:16→21:49)
[2016-07-12 06:17] LABS: ALBUMIN 2.2 GM/DL (3.2-5.2); ALBUMIN/GLOBULIN RATIO 0.49 (1.00-1.93); ALKALINE PHOSPHATASE 161 U/L (45-117); ALT/SGPT 71 U/L (12-78); ANION GAP 10 MEQ/L (8-16); AST/SGOT 46 U/L (15-37); BILIRUBIN,TOTAL 0.7 MG/DL (0.2-1.0); BLOOD UREA NITROGEN 10 MG/DL (7-18); CALCIUM LEVEL 8.4 MG/DL (8.5-10.1); CARBON DIOXIDE LEVEL 25 MEQ/L (21-32); CHLORIDE LEVEL 106 MEQ/L (98-107); CREATININE FOR GFR 0.93 MG/DL (0.70-1.30); GLOMERULAR FILTRATION RATE > 60.0 (>56); GLUCOSE, FASTING 103 MG/DL (70-105); POTASSIUM SERUM 3.7 MEQ/L (3.5-5.1); SODIUM LEVEL 141 MEQ/L (136-145); TOTAL PROTEIN 6.7 GM/DL (6.4-8.2)
--- NOTE | 2016-07-12 07:49 | IPNPDOC ---
Assessment/Plan Date Seen The patient was seen on 07/12/16. Problems Problems: (1) Intra-abdominal fluid Status: Acute Response to Treatment: Stable Discussed With: Investigative Research Specialist, Pt and Family Services Problem Text: Awaiting results from IR drainage. We'll discuss with Dr. Caruso regarding possible surgical intervention. However, he is not here until Tuesday. Patient will need to be monitored until sirs has resolved and cultures are negative. -Continue empiric antibiotics; Zosyn day 1; initiated 1999 on July 08 -Follow up fluid analysis -Discuss with Dr. Caruso 07/10/16 - IV Zosyn and Vanco day 2. Dr Kaiser following. 07/11/16 - IV Zosyn and Vanco day 3. Cx grew Staph aureus. Dr Kaiser following. 07/12/16 - Temp was up to 100.1 last night. IV Zosyn Day 4. IV Nafcillin Day 2. Vanco was stopped. Cx grew Staph Aureus. Awaiting anaerobic cx. Dr Kaiser following. (2) SIRS (systemic inflammatory response syndrome) Status: Acute Problem Text: Unknown source, however patient had positive UA. He also had a large quantity of fluid in the pelvis, which was just drained. He also screen positive for enterotoxic Escherichia coli. He is not currently complaining of any bowel symptoms, so sirs may be due to urosepsis or intra-abdominal infection. Awaiting cultures. -Continue empiric antibiotics for possible sepsis versus inflammatory response -Follow up urine and fluid cultures See above. (3) Hyperbilirubinemia Status: Acute Problem Text: T bili is 1.7. Unclear cause. No current right upper quadrant symptoms. -Measure direct and indirect bili 07/10/16 - TB down to 0.9. 07/11/16 - TB down to 0.6. 07/12/16 - TB 0.7. (4) Anemia Status: Acute Problem Text: Borderline hemoglobin -Recheck in a.m. -Consider anemia workup outpatient; patient currently asymptomatic 07/10/16 - Hgb 11.3 (13.8 yesterday) 07/11/16 - Hgb 11.1 07/12/16 - hgb 11.6 (5) HLD (hyperlipidemia) Status: Chronic Problem Text: continue home statin Plan / VTE VTE Prophylaxis Ordered?: Yes (previously on teds, however with history of prostate cancer Will anticoagulate with heparin) Plan / Urinary Catheter Reason for insertion/continuin: Acute obstruct/retention Plan Plan Text Attending Note: I saw and evaluated the patient, and I agree with the plan of care as discussed and documented above. However, pt does not need to be on zosyn and nafcillin. Changed to zosyn to flagyl for anaerobic coverage while awaiting anaerobic cxs. Cont nafcillin for MSSA. Hamlet Gandhi MD Subjective Review of Systems CC/HPI The patient is a 60-year-old male admitted with a reason for visit of Intra- Abdominal Fluid;Sirs. Events since last encounter Pt denies any new issues. Denies Abd pain, CP, SOB. Temp was up to 100.1 last night. Constitutional: Denies: Chills, Fever Pulmonary: Denies: Dyspnea Cardiovascular: Denies: Chest Pain Gastrointestinal: Denies: Abdominal Pain, Nausea, Vomiting Objective Physical Examination General Exam: Positive: Alert, No Acute Distress Eye Exam: Positive: Conjunctiva & lids normal, Negative: Sclera icteric ENT Exam: Positive: Mucous membr. moist/pink, Nares Patent Neck Exam: Negative: JVD, thyromegaly Chest Exam: Positive: Clear to auscultation, Normal air movement, Negative: Rales, Rhonchi, Wheezing Heart Exam: Positive: Normal S1, Normal S2, Rate Normal, Negative: Murmurs, Rubs Abdomen Exam: Positive: Normal bowel sounds, Other (bilateral drains in place) , Soft, Negative: Hepatospenomegaly, Hernia, Mass, Tenderness Male Exam: Positive: Normal Genital Exam Extremity Exam: Positive: Normal pulses, Negative: Clubbing, Cyanosis, Edema Skin Exam: Positive: Nl turgor and temperature, Negative: Rash Vital Signs/I&O Vital Signs Date Time Temp Pulse Resp B/P Pulse Ox O2 Delivery O2 Flow Rate FiO2 07/12/16 06:00 97.0 71 18 130/77 97 Room Air I&O- Last 24 Hours up to 6 AM 07/12/16 06:00 Intake Total 5670 ml Output Total 3685 ml Balance 1985 ml Laboratory Data Labs 24H Laboratory Tests 2 07/12/16 05:37: Blood Urea Nitrogen 10, Creatinine 0.93, Sodium Level 141, Potassium Level 3.7, Chloride Level 106, Carbon Dioxide Level 25, Calcium Level 8.4L, Aspartate Amino Transf (AST/SGOT) 46H, Alanine Aminotransferase (ALT/SGPT) 71, Alkaline Phosphatase 161H, Total Bilirubin 0.7, Total Protein 6.7, Albumin 2.2L, Albumin/ Globulin Ratio 0.49L, Anion Gap 10, Glomerular Filtration Rate > 60.0 07/12/16 05:38: White Blood Count 7.1, Red Blood Count 4.16L, Hemoglobin 11.6L, Hematocrit 34.3L , Mean Corpuscular Volume 82.6, Mean Corpuscular Hemoglobin 27.9, Mean Corpuscular Hemoglobin Concent 33.8, Red Cell Distribution Width 12.7, Platelet Count 380, Neutrophils (%) (Auto) 83.2H, Lymphocytes (%) (Auto) 5.9L, Monocytes (%) (Auto) 6.1H, Eosinophils (%) (Auto) 2.4, Basophils (%) (Auto) 0.2, Neutrophils # (Auto) 5.9, Lymphocytes # (Auto) 0.4L, Monocytes # (Auto) 0.4, Eosinophils # (Auto) 0.2, Basophils # (Auto) 0.0, Large Unclassified Cells # 0.2 , Large Unclassified Cells % 2.2 CBC/BMP Laboratory Tests 07/12/16 05:37 Calcium Level 8.4 L, Aspartate Amino Transf (AST/SGOT) 46 H, Alanine Aminotransferase (ALT/SGPT) 71, Alkaline Phosphatase 161 H, Total Bilirubin 0.7 , Total Protein 6.7, Albumin 2.2 L 07/12/16 05:38 Red Blood Count 4.16 L, Mean Corpuscular Volume 82.6, Mean Corpuscular Hemoglobin 27.9, Mean Corpuscular Hemoglobin Concent 33.8, Red Cell Distribution Width 12.7, Neutrophils (%) (Auto) 83.2 H, Lymphocytes (%) (Auto) 5.9 L, Monocytes (%) (Auto) 6.1 H, Eosinophils (%) (Auto) 2.4, Basophils (%) ( Auto) 0.2, Neutrophils # (Auto) 5.9, Lymphocytes # (Auto) 0.4 L, Monocytes # ( Auto) 0.4, Eosinophils # (Auto) 0.2, Basophils # (Auto) 0.0 Microbiology Microbiology 07/08/16 Blood Culture - Preliminary, Resulted No Growth after 72 hours. All specime... 07/08/16 Blood Culture - Preliminary, Resulted No Growth after 72 hours. All specime... 07/09/16 Gram Stain - Final, Complete 07/09/16 Body Fluid Culture - Final, Complete Staphylococcus Aureus 07/08/16 Gastrointestinal Tract Panel (PCR) - Final, Complete Enteropathogenic E.coli 07/08/16 Influenza Virus Type A Antigen - Final, Complete 07/08/16 Influenza Virus Type B Antigen - Final, Complete 07/08/16 Urine Culture - Final, Complete 07/09/16 Anaerobic Culture, Received Pending 07/09/16 Gram Stain - Final, Resulted 07/09/16 Body Fluid Culture - Final, Resulted 07/09/16 Anaerobic Culture, Resulted Pending Rayshawn Hicks Jul 12, 2016 07:49 HAMLET GANDHI MD Jul 13, 2016 08:48
[2016-07-12] MEDS: ATORVASTATIN 10 MG TAB PO SCH (08:32)
[2016-07-12] MEDS: metroNIDAZOLE (FLAGYL) 500 MG TAB PO SCH ×2 (09:00→21:50)
[2016-07-12 14:00] VITALS: BP 128/79
[2016-07-12 22:00] VITALS: BP 153/84
[2016-07-13] MEDS: NAFCILLIN SOD 2 GM in D5W MINI-BAG PLUS 100 ML IV SCH ×6 (01:59→21:52)
[2016-07-13 06:00] VITALS: BP 156/87
[2016-07-13] MEDS: HEPARIN SOD (PORCINE) 5000 UNITS/ML VIAL SQ SCH ×3 (06:03→21:52)
[2016-07-13 06:20] LABS: BASO % 0.2 % (0.0-1.0); EOS # 0.2 K/mm3 (0.0-0.50); EOS % 2.6 % (0.0-3.0); LARGE UNSTAINED CELL # 0.1 K/mm3 (0.0-0.4); LARGE UNSTAINED CELL % 1.2 % (0.0-4.0); LYMPH # 0.5 K/mm3 (1.5-4.5); LYMPH % 6.3 % (24.0-44.0); MEAN CORPUSCULAR HEMOGLOBIN 27.6 pg (27.0-33.0); MEAN CORPUSCULAR HGB CONC 33.7 g/dl (32.0-36.5); MONO # 0.4 K/mm3 (0.0-0.8); MONO % 4.5 % (0.0-5.0); NEUTROPHILS # 6.5 K/mm3 (1.8-7.7); NEUTROPHILS % 85.2 % (36.0-66.0); PLATELET COUNT, AUTOMATED 439 k/mm3 (150-450); RED CELL DISTRIBUTION WIDTH 12.8 % (11.5-14.5); WHITE BLOOD COUNT 7.6 K/mm3 (4.0-10.0)
[2016-07-13 06:41] LABS: ALBUMIN 2.3 GM/DL (3.2-5.2); ALBUMIN/GLOBULIN RATIO 0.52 (1.00-1.93); ALKALINE PHOSPHATASE 140 U/L (45-117); ALT/SGPT 55 U/L (12-78); ANION GAP 9 MEQ/L (8-16); AST/SGOT 25 U/L (15-37); BILIRUBIN,TOTAL 0.4 MG/DL (0.2-1.0); BLOOD UREA NITROGEN 12 MG/DL (7-18); CALCIUM LEVEL 8.7 MG/DL (8.5-10.1); CARBON DIOXIDE LEVEL 25 MEQ/L (21-32); CHLORIDE LEVEL 106 MEQ/L (98-107); CREATININE FOR GFR 0.83 MG/DL (0.70-1.30); GLOMERULAR FILTRATION RATE > 60.0 (>56); GLUCOSE, FASTING 109 MG/DL (70-105); POTASSIUM SERUM 3.6 MEQ/L (3.5-5.1); SODIUM LEVEL 140 MEQ/L (136-145); TOTAL PROTEIN 6.7 GM/DL (6.4-8.2)
[2016-07-13 09:00] VITALS: BP 128/87
[2016-07-13] MEDS: ATORVASTATIN 10 MG TAB PO SCH (09:50)
[2016-07-13] MEDS: metroNIDAZOLE (FLAGYL) 500 MG TAB PO SCH (09:50)
--- NOTE | 2016-07-13 10:00 | IPNPDOC ---
Assessment/Plan Date Seen The patient was seen on 07/13/16. Problems Problems: (1) Intra-abdominal fluid Status: Acute Response to Treatment: Stable Discussed With: Wind Farm Designer, Pt and Family Services Problem Text: Discussed with Dr. Caruso. They are planning on injecting contrast to eval for fistulas and then performing sclerotherapy. Per IR does not need to be NPO, and will likely discharge after. Fluid aspirate grew MSSA. Anaerobic cx no growth, final. WBC remains normal today and pt remains afebrile, but still with left-shift. - Continue nafcillin, day 4 - discontinue flagyl as anaerobic cx negative - IR procedure in AM with Dr. Caruso - Dr Kaiser following (2) Sepsis Status: Resolved Problem Text: Secondary to MSSA intrabdominal infection. Met sepsis criteria on admission, as he had SIRS now with known source. - cont nafcillin (3) Hyperbilirubinemia Status: Resolved Problem Text: T bili is 1.7. Unclear cause. No current right upper quadrant symptoms. -Measure direct and indirect bili 07/10/16 - TB down to 0.9. (4) Anemia Status: Acute Problem Text: Hgb 12.2. Stable. No signs of active bleeding. -anemia workup outpatient; patient currently asymptomatic (5) HLD (hyperlipidemia) Status: Chronic Problem Text: continue home statin Plan / VTE VTE Prophylaxis Ordered?: Yes (previously on teds, however with history of prostate cancer Will anticoagulate with heparin) Plan / Urinary Catheter Reason for insertion/continuin: Acute obstruct/retention Disposition Cont IV abx, transition to PO abx tomorrow. IR procedure tomorrow with likely D/ C after Subjective Review of Systems CC/HPI The patient is a 60-year-old male admitted with a reason for visit of Intra- Abdominal Fluid;Sirs. Events since last encounter Pt feels well today. Drains putting out straw-colored fluid. Denies abd pain, fevers, chills, or sweats. No other complaints. Constitutional: Denies: Chills, Fever, Malaise Skin: Denies: Rash Pulmonary: Denies: Cough, Dyspnea Cardiovascular: Denies: Chest Pain, Palpitations Gastrointestinal: Denies: Abdominal Pain, Constipation, Diarrhea, Nausea, Vomiting Genitourinary: Denies: Dysuria, Frequency Other systems 10-pt ROS otherwise negative Objective Physical Examination General Exam: Positive: Alert, No Acute Distress Eye Exam: Positive: Conjunctiva & lids normal, Negative: Sclera icteric ENT Exam: Positive: Mucous membr. moist/pink, Nares Patent Neck Exam: Negative: JVD, thyromegaly Chest Exam: Positive: Clear to auscultation, Normal air movement, Negative: Rales, Rhonchi, Wheezing Heart Exam: Positive: Normal S1, Normal S2, Rate Normal, Negative: Murmurs, Rubs Abdomen Exam: Positive: Normal bowel sounds, Other (bilateral drains in place with straw-colored fluid), Soft, Negative: Hepatospenomegaly, Hernia, Mass, Tenderness Male Exam: Positive: Normal Genital Exam Extremity Exam: Positive: Normal pulses, Negative: Clubbing, Cyanosis, Edema Skin Exam: Positive: Nl turgor and temperature, Negative: Rash Vital Signs/I&O Vital Signs Date Time Temp Pulse Resp B/P Pulse Ox O2 Delivery O2 Flow Rate FiO2 07/13/16 09:00 97.5 86 18 128/87 97 Room Air I&O- Last 24 Hours up to 6 AM 07/13/16 06:00 Intake Total 3360 ml Output Total 3565 ml Balance -205 ml Laboratory Data Labs 24H Laboratory Tests 2 07/13/16 05:47: Blood Urea Nitrogen 12, Creatinine 0.83, Sodium Level 140, Potassium Level 3.6, Chloride Level 106, Carbon Dioxide Level 25, Calcium Level 8.7, Aspartate Amino Transf (AST/SGOT) 25, Alanine Aminotransferase (ALT/SGPT) 55, Alkaline Phosphatase 140H, Total Bilirubin 0.4, Total Protein 6.7, Albumin 2.3L, Albumin/ Globulin Ratio 0.52L, Anion Gap 9, White Blood Count 7.6, Red Blood Count 4.40, Hemoglobin 12.2L, Hematocrit 36.1L, Mean Corpuscular Volume 82.0, Mean Corpuscular Hemoglobin 27.6, Mean Corpuscular Hemoglobin Concent 33.7, Red Cell Distribution Width 12.8, Platelet Count 439, Neutrophils (%) (Auto) 85.2H, Lymphocytes (%) (Auto) 6.3L, Monocytes (%) (Auto) 4.5, Eosinophils (%) (Auto) 2.6, Basophils (%) (Auto) 0.2, Neutrophils # (Auto) 6.5, Lymphocytes # (Auto) 0.5L, Monocytes # (Auto) 0.4, Eosinophils # (Auto) 0.2, Basophils # (Auto) 0.0, Glomerular Filtration Rate > 60.0, Large Unclassified Cells # 0.1, Large Unclassified Cells % 1.2 CBC/BMP Laboratory Tests 07/13/16 05:47 Calcium Level 8.7, Aspartate Amino Transf (AST/SGOT) 25, Alanine Aminotransferase (ALT/SGPT) 55, Alkaline Phosphatase 140 H, Total Bilirubin 0.4 , Total Protein 6.7, Albumin 2.3 L, Red Blood Count 4.40, Mean Corpuscular Volume 82.0, Mean Corpuscular Hemoglobin 27.6, Mean Corpuscular Hemoglobin Concent 33.7, Red Cell Distribution Width 12.8, Neutrophils (%) (Auto) 85.2 H, Lymphocytes (%) (Auto) 6.3 L, Monocytes (%) (Auto) 4.5, Eosinophils (%) (Auto) 2.6, Basophils (%) (Auto) 0.2, Neutrophils # (Auto) 6.5, Lymphocytes # (Auto) 0.5 L, Monocytes # (Auto) 0.4, Eosinophils # (Auto) 0.2, Basophils # (Auto) 0.0 Microbiology Microbiology 07/08/16 Blood Culture - Preliminary, Resulted No Growth after 72 hours. All specime... 07/08/16 Blood Culture - Preliminary, Resulted No Growth after 72 hours. All specime... 07/09/16 Gram Stain - Final, Complete 07/09/16 Body Fluid Culture - Final, Complete Staphylococcus Aureus 07/08/16 Gastrointestinal Tract Panel (PCR) - Final, Complete Enteropathogenic E.coli 07/08/16 Influenza Virus Type A Antigen - Final, Complete 07/08/16 Influenza Virus Type B Antigen - Final, Complete 07/08/16 Urine Culture - Final, Complete 07/09/16 Anaerobic Culture - Final, Complete 07/09/16 Gram Stain - Final, Complete 07/09/16 Body Fluid Culture - Final, Complete Staphylococcus Aureus 07/09/16 Anaerobic Culture - Final, Complete АЛЕКСАНДР SALMERON MD Jul 13, 2016 10:00
[2016-07-13] MEDS ORDERED: NS 1,000 ML IV SCH (10:15)
[2016-07-13 14:00] VITALS: BP 125/93
[2016-07-13] MEDS ORDERED: diphenhydrAMINE INJ 50MG/ML VIAL (J1200) IV PRN (18:15)
[2016-07-13] MEDS ORDERED: diphenhydrAMINE 25 MG CAP PO PRN (18:15)
[2016-07-13] MEDS ORDERED: EPINEPHrine 1MG/10ML SYRINGE 1.5IN IM PRN (18:15)
[2016-07-13 22:00] VITALS: BP 152/85
[2016-07-14] MEDS: NAFCILLIN SOD 2 GM in D5W MINI-BAG PLUS 100 ML IV SCH ×3 (02:27→11:31)
[2016-07-14] MEDS: HEPARIN SOD (PORCINE) 5000 UNITS/ML VIAL SQ SCH (05:08)
[2016-07-14 06:00] VITALS: BP 133/87
[2016-07-14 06:22] LABS: BASO % 0.4 % (0.0-1.0); EOS # 0.2 K/mm3 (0.0-0.50); EOS % 2.3 % (0.0-3.0); LARGE UNSTAINED CELL # 0.1 K/mm3 (0.0-0.4); LARGE UNSTAINED CELL % 1.4 % (0.0-4.0); LYMPH # 0.6 K/mm3 (1.5-4.5); LYMPH % 5.4 % (24.0-44.0); MEAN CORPUSCULAR HEMOGLOBIN 27.5 pg (27.0-33.0); MEAN CORPUSCULAR HGB CONC 33.1 g/dl (32.0-36.5); MEAN CORPUSCULAR VOLUME 83.2 fl (80.0-96.0); MONO # 0.5 K/mm3 (0.0-0.8); MONO % 5.3 % (0.0-5.0); NEUTROPHILS # 7.4 K/mm3 (1.8-7.7); NEUTROPHILS % 85.3 % (36.0-66.0); PLATELET COUNT, AUTOMATED 422 k/mm3 (150-450); RED CELL DISTRIBUTION WIDTH 13.6 % (11.5-14.5); WHITE BLOOD COUNT 8.7 K/mm3 (4.0-10.0)
[2016-07-14 06:42] LABS: ALBUMIN 2.3 GM/DL (3.2-5.2); ALBUMIN/GLOBULIN RATIO 0.53 (1.00-1.93); ALKALINE PHOSPHATASE 126 U/L (45-117); ALT/SGPT 53 U/L (12-78); ANION GAP 10 MEQ/L (8-16); AST/SGOT 31 U/L (15-37); BILIRUBIN,TOTAL 0.5 MG/DL (0.2-1.0); BLOOD UREA NITROGEN 12 MG/DL (7-18); CALCIUM LEVEL 8.7 MG/DL (8.5-10.1); CARBON DIOXIDE LEVEL 26 MEQ/L (21-32); CHLORIDE LEVEL 105 MEQ/L (98-107); GLOMERULAR FILTRATION RATE > 60.0 (>56); GLUCOSE, FASTING 100 MG/DL (70-105); POTASSIUM SERUM 3.8 MEQ/L (3.5-5.1); SODIUM LEVEL 141 MEQ/L (136-145); TOTAL PROTEIN 6.6 GM/DL (6.4-8.2)
[2016-07-14] MEDS: ATORVASTATIN 10 MG TAB PO SCH (08:55)
[2016-07-14] MEDS ORDERED: ISOVUE-300 61% 50ML VIAL (Q9967) As Ordered ONE (10:11)
[2016-07-14] MEDS ORDERED: ETHANOL ALCOHOL 98% INJ 5ML (DEHYDRATED) As Ordered ONE ×2 (10:18→10:54)
[2016-07-14] MEDS ORDERED: LIDOCAINE 2% MDV 20 ML VIAL As Ordered ONE (10:22)
[2016-07-14] MEDS ORDERED: BACT800T5 PO (12:16)
--- NOTE | 2016-07-14 14:31 | DSES ---
DATE OF ADMISSION: 07/08/2016 DATE OF DISCHARGE: 07/14/2016 PRIMARY CARE PROVIDER: Gene Munoz MD ATTENDING PHYSICIAN: Alicja Castañeda DO A 60-year-old male with a past medical history significant for prostate cancer, status post prostatectomy, hypercholesterolemia, who presented to [facility] on 07/08/2016 for worsening lower abdominal pain. The patient also had complaints of diarrhea on presentation to [facility] Emergency Room. During workup in the emergency department (ED), CT abdomen and pelvis was performed and was found to have persistent large bilateral pelvic fluid collection, which compresses the bladder centrally, mild to large bilateral hydronephrosis and hydroureter. The patient was subsequently admitted. HOSPITAL COURSE: The patient did have drainage of fluid and was started on empiric antibiotics, including Zosyn. The patient was shown to be positive for enteropathogenic Escherichia (E.) coli. Had an elevated bilirubin of 1.7. The patient was monitored in hospital until interventional radiology was available. The patient's fluid aspirate grew methicillin-susceptible Staphylococcus aureus (MSSA). The patient was placed on nafcillin and finished his appropriate course. Hyperbilirubinemia resolved. The patient remained stable and afebrile throughout hospitalization. Today, the patient is status post injection contrast to evaluate for fistulas and then sclerotherapy. The patient is deemed appropriate for discharge postprocedure. On physical examination, hemoglobin and hematocrit 12.6 and 38, platelet count 422. Chemistry showed potassium of 3.8 with a sodium of 141, BUN 12, creatinine 0.9, with a GFR of up 60, fasting glucose 100, total bilirubin 0.5. The patient's alkaline phosphatase is 126, which appears to be stable and baseline for him. MICROBIOLOGY: The patient had MSSA noted on his left pelvic lymphocele and enteropathogenic Escherichia (E.) coli noted on his gastrointestinal (GI) panel. Blood cultures were negative. Urine culture negative. IMAGING: Chest x-ray with no acute disease noted. PROCEDURES: Status post bilateral ultrasound-guided pelvic fluid collection drainage, as well as guidance fluoroscopy performed today by Dr. Caruso. CONSULTATIONS: Include Dr. Kaiser, urology. On physical examination, denies chest pain, headache, blurred vision, dizziness, shortness of breath. Denies any urinary symptoms, including urgency, frequency, or burning on urination. Neck is supple without lymphadenopathy or jugular venous distention (JVD). Cardiovascular: Heart rate and rhythm are regular. Pulmonary: Lungs are clear to auscultation bilaterally. Abdomen: Is obese yet nontender. Positive bowel sounds times all four quadrants. Bilateral lower extremities without any edema. ASSESSMENT AND PLAN: 1. Discharge diagnoses include positive for sepsis, positive systemic inflammatory response syndrome (SIRS). This is secondary to intraabdominal lymphocele. 2. Large bilateral pelvic fluid collection. 3. Hypercholesterolemia. 4. Prostate cancer. 5. Hyperbilirubinemia, resolved. 6. Anemia. 7. History of hyperlipidemia. PLAN: The patient will be discharged home. Diet is as tolerated. He will followup with primary care provider within the next 5-7 days. Activity as tolerated. Prescriptions are as follows: Bactrim DS 800/150 mg one by mouth twice a day for 7 days, atorvastatin 10 mg by mouth daily, hydrochlorothiazide 12.5 mg daily, ibuprofen 200 mg by mouth every 4 hours as needed for pain. The patient also to followup with Dr. Kaiser for his urology needs. The patient is discharged in stable and satisfactory condition with no further questions at time of discharge. [facility]
--- NOTE | 2016-07-14 15:40 | REPKIM ---
HISTORY: Patient with a history of prostate ca, s/p prostatectomy in the past presented with recurrent bilateral pelvic lymphocele collection. Bilateral pelvic drainage catheters were placed on 07/09/16 with dx of infected pelvic lymphocele. The patient presents for bilateral drainage catheter check possible sclerotherapy. PROCEDURE: 1. Bilateral Pelvic Drainage Catheter Check (Sinogram) 2. Bilateral Pelvic Lymphocele Sclerotherapy using Alcohol INTERVENTIONALIST: Dr. Yolanda Caruso ICE CREAM MAN: CHALO Rivera MEDICATIONS: Local lidocaine, Absolute alcohol CONTRAST: 40 mL Isovue 300 FLUORO TIME: 1 minute EBL: None PROCEDURE DETAILS: After appropriate consent was obtained and time out performed , the patient was placed in supine position on the angiographic table. Bilateral pelvic indwelling catheters were prepped and draped in the usual sterile manner. Contrast was administered through the each existing 10-Bengali drainage catheter and DSA images were obtained. This showed each catheter is patent with a satisfactory course and position. This also showed the residual cavity of at least 40mL volume. No fistula identified. The cavity was then irrigated with lidocainhe/saline and aspirated out. Absolute alcohol 35 mL was then instilled into each cavity for 15 minutes. It was then aspirated out. Each drainage catheter was flushed and connected to a gravity drainage bag. The patient tolerated the procedure well with no immediate complications. This procedure was performed using fluoroscopy. IMPRESSION: Recurrent bilateral pelvic lymphocele. S/P bilateral drainage catheter check (sinogram) and sclerotherapy using absolute alcohol as discussed above. PLAN: Continue external drain with follow up drainage catheter check possible additional sclerotherapy or catheter removal in one week. Patient was instructed to record daily drainage output. Continue antibiotics. Dr. Caruso was present for the procedure as documented in the progress notes. cc: MD Jean Paul Stephenson MD MTDD
== END 2016-07-14 13:44 | disposition home or self-care (01) | DRG 720 ==
LOC: M ED 14:03 → M ED INP 17:01 → M MSPAV 18:56
PROVIDERS: ADMIT Internal Medicine; ATTEND Family Medicine
PROC: 0W9F30Z Drainage of Abdominal Wall with Drainage Device, Percutaneous Approach (ICD-10-PCS; principal; 2016-07-09)
PROC: 0W9F3ZX Drainage of Abdominal Wall, Percutaneous Approach, Diagnostic (ICD-10-PCS; 2016-07-09)
PROC: 3E0W3KZ Introduction of Other Diagnostic Substance into Lymphatics, Percutaneous Approach (ICD-10-PCS; 2016-07-14)
DX: A41.9 Sepsis, unspecified organism (principal); N13.30 Unspecified hydronephrosis; E78.00 Pure hypercholesterolemia, unspecified; E80.6 Other disorders of bilirubin metabolism; K52.9 Noninfective gastroenteritis and colitis, unspecified; B96.20 Unspecified Escherichia coli [E. coli] as the cause of diseases classified elsewhere; B95.61 Methicillin susceptible Staphylococcus aureus infection as the cause of diseases classified elsewhere; I89.8 Other specified noninfective disorders of lymphatic vessels and lymph nodes; D64.9 Anemia, unspecified; E86.0 Dehydration; Z90.79 Acquired absence of other genital organ(s); Z85.46 Personal history of malignant neoplasm of prostate

== ENCOUNTER → 2016-07-21 | Outpatient (CLI) | payer BC ==
[~2016-07-21] MED LIST changes: +ADVI200T PO; +ATOR1TAB19 PO; +BACT800T5 PO; +DOXYCYCLINE HYCLATE 100 MG/10 ML VIAL As Ordered ONE; +ETHANOL ALCOHOL 98% INJ 5ML (DEHYDRATED) As Ordered ONE; +HYDR12CA PO; +ISOVUE-300 61% 50ML VIAL (Q9967) As Ordered ONE; +LIDOCAINE 2% MDV 20 ML VIAL As Ordered ONE; +SODIUM BICARBONATE 8.4% INJ 50MEQ 50 ML VIAL As Ordered ONE
--- NOTE | 2016-07-21 15:27 | REPKIM ---
HISTORY: Patient with a history of prostate ca, s/p prostatectomy in the past presented with recurrent complex bilateral pelvic lymphocele collection. On last encounter, bilateral sinogram and sclerotherapy performed on 07/14/16. The patient presents for bilateral pelvic lymphocele drainage catheter check possible 2nd session sclerotherapy/catheter removal. Patient reports each drainage catheter output less than 10 mL/day. PROCEDURE: 1. Bilateral Pelvic Drainage Catheter Check (Sinogram) 2. Bilateral Pelvic Lymphocele Sclerotherapy INTERVENTIONALIST: Dr. Yolanda Caruso MEDICATIONS: Local lidocaine, Absolute alcohol, Doxycycline CONTRAST: 25 mL Isovue 300 FLUORO TIME: 0.6 minutes EBL: None PROCEDURE DETAILS: After appropriate consent was obtained and time out performed , the patient was placed in supine position on the angiographic table. Bilateral pelvic indwelling catheters were prepped and draped in the usual sterile manner. RIGHT SIDE: Contrast was administered through the existing 10-[place] drainage catheter and images were obtained. This showed the catheter is patent with a satisfactory course and position. This also showed a residual cavity of at least 10 mL volume. No leak or fistula identified. The cavity was then irrigated with lidocainhe/saline and aspirated out Doxycycline solution 100 mg in 10 mL saline was then instilled into the cavity for 15 minutes. It was then aspirated out. The drainage catheter was then unlocked and removed in its entirety. A sterile dressing was applied. LEFT SIDE: Contrast was administered through the existing 10-[place] drainage catheter and images were obtained. This showed the catheter is patent with a satisfactory course and position. This also showed a residual cavity of at least 15-20 mL volume. No leak or fistula identified. The cavity was then irrigated with lidocainhe/saline and aspirated out. Absolute alcohol 15 mL was then instilled into each cavity for 15 minutes. It was then aspirated out. The drainage catheter was then unlocked and removed in its entirety. A sterile dressing was applied. The patient tolerated the procedure well with no immediate complications. This procedure was performed using fluoroscopy. IMPRESSION: Recurrent complex bilateral pelvic lymphocele. S/P bilateral drainage catheter check (sinogram), sclerotherapy and catheter removal as discussed above. Dr. Caruso was present for the procedure as documented in the progress notes. cc: MD Jean Paul Stephenson MD MTDD
== END | disposition home or self-care (01) ==
LOC: M IRPRO 08:32
DX: I89.8 Other specified noninfective disorders of lymphatic vessels and lymph nodes (principal); Z85.46 Personal history of malignant neoplasm of prostate
CPT/HCPCS: 49185; Q9967

== ENCOUNTER → 2016-07-28 | Outpatient (REF) | payer BC ==
[~2016-07-28] MED LIST changes: -DOXYCYCLINE HYCLATE 100 MG/10 ML VIAL As Ordered ONE; -ETHANOL ALCOHOL 98% INJ 5ML (DEHYDRATED) As Ordered ONE; -ISOVUE-300 61% 50ML VIAL (Q9967) As Ordered ONE; -LIDOCAINE 2% MDV 20 ML VIAL As Ordered ONE; -SODIUM BICARBONATE 8.4% INJ 50MEQ 50 ML VIAL As Ordered ONE
[2016-07-28 12:24] LABS: BASO % 0.2 % (0.0-1.0); EOS # 0.1 K/mm3 (0.0-0.50); EOS % 1.2 % (0.0-3.0); LARGE UNSTAINED CELL # 0.1 K/mm3 (0.0-0.4); LARGE UNSTAINED CELL % 1.6 % (0.0-4.0); LYMPH # 0.5 K/mm3 (1.5-4.5); LYMPH % 7.4 % (24.0-44.0); MEAN CORPUSCULAR HEMOGLOBIN 27.5 pg (27.0-33.0); MONO # 0.6 K/mm3 (0.0-0.8); MONO % 8.5 % (0.0-5.0); NEUTROPHILS # 5.9 K/mm3 (1.8-7.7); NEUTROPHILS % 81.2 % (36.0-66.0); PLATELET COUNT, AUTOMATED 330 k/mm3 (150-450); RED CELL DISTRIBUTION WIDTH 13.1 % (11.5-14.5); WHITE BLOOD COUNT 7.3 K/mm3 (4.0-10.0)
[2016-07-28 12:41] LABS: ANION GAP 8 MEQ/L (8-16); BLOOD UREA NITROGEN 15 MG/DL (7-18); CALCIUM LEVEL 8.9 MG/DL (8.5-10.1); CARBON DIOXIDE LEVEL 30 MEQ/L (21-32); CHLORIDE LEVEL 98 MEQ/L (98-107); GLOMERULAR FILTRATION RATE > 60.0 (>56); GLUCOSE, FASTING 93 MG/DL (70-105); POTASSIUM SERUM 4.2 MEQ/L (3.5-5.1); SODIUM LEVEL 136 MEQ/L (136-145)
== END ==
LOC: M SFHCADAM 10:56
PROVIDERS: ATTEND Family Medicine
DX: I89.8 Other specified noninfective disorders of lymphatic vessels and lymph nodes (principal); A49.01 Methicillin susceptible Staphylococcus aureus infection, unspecified site

== ENCOUNTER → 2016-08-02 | Outpatient (CLI) | payer BC ==
--- NOTE | 2016-08-03 03:05 | REP ---
Clinical: Post surgical seroma/lymphocele. Comparison: CT dated 07/08/2016. Technique: Real time jamil scale and color evaluation using curved array transducer. Findings: A complex collection to the right of midline measures 6.7 x 4.9 x 5.9 cm with evidence for mild wall thickening/irregularity and internal debris suggesting the possibility of infectious changes. A simple collection to the left of midline is identified with a smooth wall, anechoic fluid, and increased through transmission measuring 6.9 x 5.7 x 10.1 cm. Impression: Two collections within the pelvis as noted above Signed by Adriano De La Cruz MD 08/03/2016 02:58 A
== END ==
LOC: M WHC 09:54
PROVIDERS: ATTEND Family Medicine
DX: I89.8 Other specified noninfective disorders of lymphatic vessels and lymph nodes (principal)

== ENCOUNTER → 2016-08-09 | Outpatient (CLI) | payer BC ==
[~2016-08-09] MED LIST changes: +MULT1TAB10 PO; +TYLETAB14 PO
--- NOTE | 2016-08-09 19:26 | ECGEPIP ---
Stationary ECG Study [facility] Test Date: 2016-08-09 Pat Name: CLEVELAND HUDDLESTON Department: Room: - Gender: M Strategic Planning Specialist: BASSAM : 1955 Requested By: CARRIE Hernandez Order Number: [id number] Reading MD: Ned Diaz Measurements Intervals Aston Rate: 92 P: 47 WI: 171 QRS: 4 QRSD: 107 T: 6 QT: 356 QTc: 442 Interpretive Statements SINUS RHYTHM NO PRIOR Electronically Signed On 08-09-2016 19:26:27 EST by Ned Diaz
== END ==
LOC: M EKG 13:34
PROVIDERS: ATTEND Urology
DX: I89.8 Other specified noninfective disorders of lymphatic vessels and lymph nodes (principal)

== ENCOUNTER → 2016-08-09 | Outpatient (CLI) | payer BC ==
--- NOTE | 2016-08-09 14:39 | REP ---
CHEST X-RAY: Three views. HISTORY: Noninfected disorders of the lymphatic vessels and nodes. FINDINGS: The lungs are well inflated and clear. Pleural angles are sharp. Heart is not enlarged. There are mild degenerative changes in the thoracic spine. There is old post-traumatic deformity of the distal clavicle with areas of ossification along the course of the coracoclavicular ligament on the right side. IMPRESSION: No active disease. Signed by Philipp Lara MD 08/09/2016 03:21 P
[2016-08-09 20:47] LABS: INR 1.01
== END ==
LOC: M ADAMS 12:05
PROVIDERS: ATTEND Urology
DX: I89.8 Other specified noninfective disorders of lymphatic vessels and lymph nodes (principal)

== ENCOUNTER 2016-08-17 08:02 | Inpatient (IN) | payer BC ==
[~2016-08-17] VITALS: Ht 180.3 cm; Wt 102.1 kg
[2016-08-17] MEDS ORDERED: LR 1,000 ML IV SCH ×2 (08:15→16:15)
[2016-08-17] MEDS ORDERED: VANCOMYCIN HCL 1,000 MG, VIAL MATE ADAPTER 1 EACH in D5W 250 ML IV ONE (08:15)
[2016-08-17] MEDS ORDERED: GENTAMICIN 100 MG in APPROPRIATE DILUENT 1 EA IV ONE (08:30)
[2016-08-17] MEDS: hydroCHLOROthiazide 12.5 MG CAPSULE PO SCH (09:00)
[2016-08-17] MEDS ORDERED: ROCURONIUM BROMIDE 50 MG/5 ML VIAL As Ordered ONE ×2 (09:30→12:31)
[2016-08-17] MEDS ORDERED: dexameTHASONE 4 MG/ML 1ML VIAL (J1100) As Ordered ONE (09:30)
[2016-08-17] MEDS ORDERED: PROPOFOL 200 MG/20 ML VIAL As Ordered ONE (09:30)
[2016-08-17] MEDS ORDERED: LIDOCAINE 2% INJ 100 MG/5 ML SDV (FOR ANES.) As Ordered ONE (09:30)
[2016-08-17] MEDS ORDERED: fentaNYL 250 MCG/5 ML INJECTION (J3010) As Ordered ONE (09:30)
[2016-08-17] MEDS ORDERED: MIDAZOLAM INJ 2 MG/2 ML VIAL (J2250) As Ordered ONE (09:30)
[2016-08-17] MEDS ORDERED: SEVOFLURANE INHAL SOLN 250 ML BTL As Ordered ONE (11:35)
[2016-08-17] MEDS ORDERED: NEOSTIGMINE 1MG/ML 5 ML SYRINGE (J2710) As Ordered ONE (13:08)
[2016-08-17] MEDS ORDERED: GLYCOPYRROLATE INJ 0.2 MG/ML 2 ML VIAL As Ordered ONE (13:08)
[2016-08-17] MEDS ORDERED: HYDROmorphone HCL 2 MG/ML 1ML VIAL (J1170) As Ordered ONE (13:08)
[2016-08-17] MEDS ORDERED: METHYLENE BLUE 1% 10 ML VIAL (Q9968) As Ordered ONE (13:17)
[2016-08-17] MEDS ORDERED: METHYLENE BLUE 1% 10 ML VIAL (Q9968) XX ONE (14:05)
[2016-08-17] MEDS ORDERED: ESMOLOL INJ 100MG/10ML VIAL As Ordered ONE (14:24)
[2016-08-17] MEDS ORDERED: ONDANSETRON 4MG/2ML VIAL (J2405) IV PRN (16:15)
[2016-08-17] MEDS ORDERED: METOCLOPRAMIDE INJ 10MG/2ML VIAL (J2765) IV PRN (16:15)
[2016-08-17] MEDS ORDERED: MORPHINE 2 MG/ML 1ML SYRINGE IV PRN (16:15)
[2016-08-17] MEDS ORDERED: PERCOCET 5MG/325MG TAB PO PRN ×2 (16:15)
[2016-08-17] MEDS ORDERED: fentaNYL 100 MCG/2 ML INJECTION (J3010) IV PRN (16:15)
[2016-08-17 16:23] LABS: MEAN CORPUSCULAR HGB CONC 32.3 g/dl (32.0-36.5); MEAN CORPUSCULAR VOLUME 80.6 fl (80.0-96.0); RED CELL DISTRIBUTION WIDTH 13.5 % (11.5-14.5); WHITE BLOOD COUNT 9.8 K/mm3 (4.0-10.0)
[2016-08-17] MEDS: KCL 20MEQ IN D5/0.45NS 1000ML 1,000 ML IV SCH (16:36)
[2016-08-17 16:40] LABS: ANION GAP 8 MEQ/L (8-16); BLOOD UREA NITROGEN 13 MG/DL (7-18); CALCIUM LEVEL 8.7 MG/DL (8.5-10.1); CARBON DIOXIDE LEVEL 29 MEQ/L (21-32); CHLORIDE LEVEL 102 MEQ/L (98-107); CREATININE FOR GFR 0.95 MG/DL (0.70-1.30); GLOMERULAR FILTRATION RATE > 60.0 (>56); GLUCOSE, FASTING 163 MG/DL (70-105); POTASSIUM SERUM 4.8 MEQ/L (3.5-5.1); SODIUM LEVEL 139 MEQ/L (136-145)
[2016-08-17 20:00] VITALS: BP 138/75
[2016-08-17 20:30] VITALS: BP 143/83
[2016-08-17] MEDS: PANTOPRAZOLE 40MG INJ (PROTONIX) (C9113) IV SCH (20:30)
[2016-08-17] MEDS: KETOROLAC 30 MG/ML VIAL (J1885) IV SCH (20:31)
[2016-08-17] MEDS: GENTAMICIN 80 MG in APPROPRIATE DILUENT 1 EA IV SCH (20:31)
[2016-08-17 21:30] VITALS: BP 132/77
[2016-08-17 22:30] VITALS: BP 123/70
--- NOTE | 2016-08-17 23:17 | RO ---
DATE OF PROCEDURE: 08/17/2016 PREPROCEDURE DIAGNOSIS: Bilateral lymphoceles. POSTPROCEDURE DIAGNOSIS: Bilateral recurrent lymphoceles. PROCEDURE: Robotic-assisted exploratory laparotomy plus lymphocele resection and window creation, plus robotic-assisted umbilical hernia repair. SURGEON: Dr. Jean Paul Kaiser HUB BORER: Sanjuanita Poe ANESTHESIA: General. FINDINGS: Large lymphocele about 200 mL on the left side and small lymphocele on the right side with severe desmoplastic reaction and fibrotic adipose tissue in the right pelvis. COMPLICATIONS: None. ESTIMATED BLOOD LOSS: 25 mL. HISTORY OF THE PRESENT ILLNESS: A 60-year-old male patient with a history of prostate cancer. About 1-1/2 years ago, he had a robotic-assisted radical prostatectomy plus bilateral pelvic lymph node dissections. In the postoperative period, he actually developed lymphedema of the left lower extremity. A CT scan of the abdomen and pelvis showed a lymphocele. For this reason, the lymphocele was drained percutaneously. The patient's lymphedema actually resolved. He then received external beam radiation therapy as adjuvant treatment for prostate cancer. He actually was doing very well for about 1-1/2 years; however, about 1 month ago, he had lower abdominal pain and for this reason, another CT scan was performed. There was bilateral recurrent lymphoceles in the pelvis. For this reason, bilateral percutaneous drainage was performed, leaving drain on both sides. Once the drainage diminished, the drains were actually removed. However, the patient refers left lower abdominal pain and there is a recurrent lymphocele after this on ultrasound. For this reason, we have decided to consent him for robotic-assisted lymphocele drainage and window creation and lymphocele wall resection, and exploratory laparotomy. The patient has consented for this. DESCRIPTION OF PROCEDURE: In a patient under general anesthesia, in supine modified low lithotomy position, after prepping and draping the area of concern, which included the entire genitalia and abdomen, we introduced a #16-Telugu Tillman catheter to drain the bladder with a 10 mL balloon. We then proceeded to put an orogastric tube also to drain the gastric content. We then proceeded to actually prep and drape the patient and actually did a supraumbilical vertical incision for about 2 cm in diameter, 3 cm away from the umbilicus. Through this incision, we opened the peritoneal cavity and introduced a 12 mm balloon trocar, inflated the balloon trocar for 40 mL. Through this balloon trocar, we actually introduced handheld robotic-assisted camera to actually assist in placing the other trocars. An 8 mm metallic trocar, robotic-assist trocar was placed on the midclavicular line on the right side in a fan-shaped manner. On the left side, a VersaStep 12 mm in diameter was introduced and 8 cm away from this one, an 8 mm metallic trocar also in a fan-shaped manner. The patient was placed in standard steep Trendelenburg position and the robotic was docked. The 0-degree camera was used and then on the left arm we used monopolar scissors, on the right bipolar PK. We dissected the peritoneal border at the level of the bladder. Once this was dissected lateral to the median ligaments, we actually could see a translucent fluid collection on the left side. We dissected layer by layer the fluid collection until we popped it open. We then proceeded to actually resect and unroof the lymphocele on the right and the left pelvic sidewall. We unroofed the pelvic lymphocele and drained the whole content. It was a total of about 200 mL. There was no connection with the bladder. We inflated the bladder through the Tillman catheter with 200 mL back and forth; there was no urinary fistulas or opening of the bladder. We fulgurated all the edges of the lymphocele also. We then proceeded to actually dissect the peritoneal border also on the right lateral side of the median ligament also. We entered the pelvic area and dropped the bladder also by cutting the urachus. Once the bladder was completely dropped, we could actually dissect the right pelvic area. There was severe desmoplastic reaction on the right side. We resected fibrotic fat tissue. We could drain about 5-10 mL of lymphatic fluid in between the fat, but there was no lymphatic collection with a demarcated capsule like on the left side. For this reason, once we resected all the desmoplastic fibrosis and the desmoplastic fatty adipose tissue, there was no cavity on the right side. We then proceeded to actually identify a hernia in the umbilicus. This hernia was sutured with a V-Loc from inside running V-Loc and then secured with #2-0 Prolene stitches times two to close the hernia. We then proceeded to actually revise hemostasis. There were no bleeding vessels. At that moment in time, we undocked the left arm and took out the scissors and introduced a NAY drain, #15 blade round into the lymphocele cavity on the left side. We then took all the instruments out, undocked the robot and secured the drain with #3-0 nylon to the skin. After taking all the trocars out, we closed the optic port in two layers with a UR6, #2-0 Vicryl stitches, separate stitches times five. We closed the skin with #4-0 Monocryl subcuticular stitches. We placed Mastisol, Steri-Strips, 4 x 4's and Tegaderm on top of each incision site. PLAN: The patient will pass to recovery, then to the floor. Once he is fully awake and ambulating, we will take the Tillman catheter and the drainage will stay there until it has drained 15 mL or less in 24 hours. There were no complications. The roof of the lymphocele on the pelvic sidewall was sent for pathological analysis.
[2016-08-17 23:30] VITALS: BP 115/65
[2016-08-18 00:30] VITALS: BP 117/69
[2016-08-18] MEDS: KCL 20MEQ IN D5/0.45NS 1000ML 1,000 ML IV SCH ×3 (00:30→16:15)
[2016-08-18] MEDS: KETOROLAC 30 MG/ML VIAL (J1885) IV SCH ×2 (02:12→10:36)
[2016-08-18] MEDS: GENTAMICIN 80 MG in APPROPRIATE DILUENT 1 EA IV SCH ×3 (04:20→20:00)
[2016-08-18 04:30] VITALS: BP 143/86
[2016-08-18 06:52] LABS: MEAN CORPUSCULAR HEMOGLOBIN 25.8 pg (27.0-33.0); MEAN CORPUSCULAR HGB CONC 32.5 g/dl (32.0-36.5); MEAN CORPUSCULAR VOLUME 79.5 fl (80.0-96.0); RED CELL DISTRIBUTION WIDTH 13.2 % (11.5-14.5); WHITE BLOOD COUNT 14.7 K/mm3 (4.0-10.0)
[2016-08-18 06:55] LABS: ANION GAP 8 MEQ/L (8-16); BLOOD UREA NITROGEN 14 MG/DL (7-18); CALCIUM LEVEL 8.9 MG/DL (8.5-10.1); CARBON DIOXIDE LEVEL 26 MEQ/L (21-32); CHLORIDE LEVEL 103 MEQ/L (98-107); CREATININE FOR GFR 0.83 MG/DL (0.70-1.30); GLOMERULAR FILTRATION RATE > 60.0 (>56); GLUCOSE, FASTING 119 MG/DL (70-105); POTASSIUM SERUM 4.9 MEQ/L (3.5-5.1); SODIUM LEVEL 137 MEQ/L (136-145)
[2016-08-18] MEDS: hydroCHLOROthiazide 12.5 MG CAPSULE PO SCH (08:53)
[2016-08-18 10:00] VITALS: BP 149/65
[2016-08-18] MEDS ORDERED: VANCOMYCIN HCL 1,000 MG, VIAL MATE ADAPTER 1 EACH in D5W 250 ML IV SCH ×2 (10:00→15:00)
[2016-08-18] MEDS: MORPHINE 4 MG/ML 1ML SYRINGE IV PRN (10:40)
[2016-08-18 14:00] VITALS: BP 140/82
[2016-08-18] MEDS: VANCOMYCIN HCL 1,000 MG, VIAL MATE ADAPTER 1 EACH in D5W 250 ML IV SCH ×2 (15:46→22:40)
[2016-08-18] MEDS: PANTOPRAZOLE 40MG INJ (PROTONIX) (C9113) IV SCH (17:32)
[2016-08-18 22:00] VITALS: BP 138/73
[2016-08-19] MEDS: GENTAMICIN 100 MG in APPROPRIATE DILUENT 1 EA IV SCH ×2 (03:12→10:56)
[2016-08-19] MEDS: MORPHINE 4 MG/ML 1ML SYRINGE IV PRN ×2 (03:13→09:22)
[2016-08-19 06:00] VITALS: BP 131/80
[2016-08-19 06:41] LABS: MEAN CORPUSCULAR HEMOGLOBIN 25.8 pg (27.0-33.0); MEAN CORPUSCULAR HGB CONC 32.3 g/dl (32.0-36.5); RED CELL DISTRIBUTION WIDTH 13.6 % (11.5-14.5); WHITE BLOOD COUNT 7.1 K/mm3 (4.0-10.0)
[2016-08-19 07:00] LABS: ANION GAP 9 MEQ/L (8-16); BLOOD UREA NITROGEN 14 MG/DL (7-18); CALCIUM LEVEL 8.4 MG/DL (8.5-10.1); CARBON DIOXIDE LEVEL 28 MEQ/L (21-32); CHLORIDE LEVEL 103 MEQ/L (98-107); CREATININE FOR GFR 0.85 MG/DL (0.70-1.30); GLOMERULAR FILTRATION RATE > 60.0 (>56); GLUCOSE, FASTING 90 MG/DL (70-105); SODIUM LEVEL 140 MEQ/L (136-145)
[2016-08-19] MEDS: VANCOMYCIN HCL 1,000 MG, VIAL MATE ADAPTER 1 EACH in D5W 250 ML IV SCH ×2 (07:29→15:37)
[2016-08-19 08:56] VITALS: BP 137/86
[2016-08-19] MEDS: hydroCHLOROthiazide 12.5 MG CAPSULE PO SCH (09:28)
[2016-08-19 14:00] VITALS: BP 127/70
[2016-08-19] MEDS ORDERED: PERCOCET PO (16:19)
[2016-08-19] MEDS ORDERED: BACT800T5 PO (16:19)
--- NOTE | 2016-08-19 16:46 | DSES ---
DATE OF ADMISSION: 08/17/2016 DATE OF DISCHARGE: 08/19/2016 PREOPERATIVE DIAGNOSIS: Bilateral recurrent pelvic lymphoceles. POSTOPERATIVE DIAGNOSIS: Bilateral recurrent lymphoceles. SURGERY PERFORMED: Robotic-assisted exploratory laparotomy plus bilateral pelvic recurrent lymphocele drainage and window opening. ADMITTING SURGEON: Jean Paul Kaiser MD DISCHARGING SURGEON: Jean Paul Kaiser MD COMPLICATIONS: None. HISTORY OF THE PRESENT ILLNESS: This is a 60-year-old male patient with a history of prostate cancer, that has been treated with robotic-assisted radical prostatectomy and then on top of that adjuvant radiation therapy. The patient developed bilateral pelvic lymphoceles which were drained percutaneously. One year after surgery he developed, again, recurrent lymphoceles bilaterally that required percutaneous drainage again. However, he has recurred again and, for this reason, we are taking him to the operating room (OR). We took him to the OR for robotic-assisted exploratory laparotomy and bilateral pelvic lymphocele drainage and window creation due to recurrent pelvic lymphoceles. The surgery was carried out on 08/17/2016, and he was admitted after this. HOSPITALIZATION COURSE: The patient did very well and by postoperative day #1 he was put on a regular diet, ambulating very well, and passing gas. The Maicol-Vasquez (NAY) output was around 40-80 mL per day. His Tillman catheter was discontinued on postoperative day #1 and he started voiding naturally. He has been putting out a lot of fluids, between 3163-5265 urine output a day. His pain is controlled on the oral pain medication. For this reason, he requested to go home and we will be discharging him with the following indications: NAY tube bulb suction. He ambulates three times a day. He can void naturally. He will have Bactrim one tablet by mouth twice a day for 10 days. He will have Percocet 5/325 mg one tablet by mouth every 6 hours as needed for pain. He will followup at [facility] in about one week.
[2016-08-19] MEDS: PANTOPRAZOLE 40MG INJ (PROTONIX) (C9113) IV SCH (18:00)
== END 2016-08-19 18:35 | disposition home or self-care (01) | DRG 651 ==
LOC: M OR 08:02 → M MS5PR 19:15
PROVIDERS: ADMIT Urology; ATTEND Urology
PROC: 07TC4ZZ Resection of Pelvis Lymphatic, Percutaneous Endoscopic Approach (ICD-10-PCS; 2016-08-17)
PROC: 8E0W4CZ Robotic Assisted Procedure of Trunk Region, Percutaneous Endoscopic Approach (ICD-10-PCS; 2016-08-17)
PROC: 0WQF4ZZ Repair Abdominal Wall, Percutaneous Endoscopic Approach (ICD-10-PCS; principal; 2016-08-17 10:10)
DX: I89.8 Other specified noninfective disorders of lymphatic vessels and lymph nodes (principal); I10 Essential (primary) hypertension; Z85.46 Personal history of malignant neoplasm of prostate; K42.9 Umbilical hernia without obstruction or gangrene; Z79.899 Other long term (current) drug therapy; E78.2 Mixed hyperlipidemia

== ENCOUNTER → 2016-08-27 | Outpatient (CLI) | payer BC ==
[~2016-08-27] MED LIST changes: +PERCOCET PO
== END ==
LOC: M WUC 09:16
PROVIDERS: ATTEND Urology
DX: C61 Malignant neoplasm of prostate (principal)

== ENCOUNTER → 2016-09-13 | Outpatient (REF) | payer BC ==
[2016-09-13 20:38] LABS: CALCIUM OXALATE CRYSTALS MODERATE
== END ==
LOC: M LAB REF 19:23
PROVIDERS: ATTEND Urology
DX: I89.8 Other specified noninfective disorders of lymphatic vessels and lymph nodes (principal)

== ENCOUNTER → 2016-11-21 | Outpatient (CLI) | payer BC | LOC: M WUC 10:47 | PROVIDERS: ATTEND Urology | DX: I89.8 Other specified noninfective disorders of lymphatic vessels and lymph nodes (principal) ==

== ENCOUNTER → 2017-02-16 | Outpatient (CLI) | payer BC ==
[~2017-02-16] MED LIST changes: +LEVA1TAB2 PO; -LEVA500T PO; +PERC5TAB12 PO; -PERC5TAB6 PO
== END ==
LOC: M WUC 16:19
PROVIDERS: ATTEND Urology
DX: I89.8 Other specified noninfective disorders of lymphatic vessels and lymph nodes (principal)

== ENCOUNTER → 2017-02-25 | Outpatient (CLI) | payer BC ==
--- NOTE | 2017-02-25 13:17 | REP ---
PA and lateral chest: Comparisons 07/08/2016. The lung justice are clear. The cardiac size is normal The javier, mediastinum, and bony thorax are unremarkable. Impression: Negative PA and lateral chest. There is no interval change. Signed by Alexander Zhang MD 02/25/2017 01:09 P
[2017-02-25 14:29] LABS: ANION GAP 10 MEQ/L (8-16); BLOOD UREA NITROGEN 14 MG/DL (7-18); CALCIUM LEVEL 9.1 MG/DL (8.5-10.1); CARBON DIOXIDE LEVEL 28 MEQ/L (21-32); CHLORIDE LEVEL 101 MEQ/L (98-107); CREATININE FOR GFR 0.91 MG/DL (0.70-1.30); GLOMERULAR FILTRATION RATE > 60.0 (>56); GLUCOSE, FASTING 112 MG/DL (70-105); SODIUM LEVEL 139 MEQ/L (136-145)
== END ==
LOC: M SMT 11:31
PROVIDERS: ATTEND Nurse Practitioner Women's Health
DX: C61 Malignant neoplasm of prostate (principal)

== ENCOUNTER → 2017-02-25 | Outpatient (REF) | payer BC | LOC: M LAB REF 14:50 | PROVIDERS: ATTEND Family Medicine | DX: L72.3 Sebaceous cyst (principal) ==

== ENCOUNTER → 2017-05-29 | Outpatient (CLI) | payer BC ==
[2017-05-29 19:07] LABS: ALBUMIN 3.7 GM/DL (3.2-5.2); ALBUMIN/GLOBULIN RATIO 1.28 (1.00-1.93); ALKALINE PHOSPHATASE 59 U/L (45-117); ALT/SGPT 33 U/L (12-78); ANION GAP 8 MEQ/L (8-16); AST/SGOT 18 U/L (7-37); BILIRUBIN,TOTAL 0.7 MG/DL (0.2-1.0); BLOOD UREA NITROGEN 14 MG/DL (7-18); CALCIUM LEVEL 8.8 MG/DL (8.5-10.1); CARBON DIOXIDE LEVEL 27 MEQ/L (21-32); CHLORIDE LEVEL 106 MEQ/L (98-107); CHOLESTEROL LEVEL 185 MG/DL (<200); CREATININE FOR GFR 0.91 MG/DL (0.70-1.30); GLOMERULAR FILTRATION RATE > 60.0 (>56); GLUCOSE, FASTING 111 MG/DL (70-105); POTASSIUM SERUM 4.1 MEQ/L (3.5-5.1); SODIUM LEVEL 141 MEQ/L (136-145); TOTAL PROTEIN 6.6 GM/DL (6.4-8.2); TRIGLYCERIDES LEVEL 176 MG/DL (<150)
== END ==
LOC: M WUC 09:17
PROVIDERS: ATTEND Family Medicine
DX: E78.2 Mixed hyperlipidemia (principal); Z85.46 Personal history of malignant neoplasm of prostate

== ENCOUNTER → 2017-09-29 | Outpatient (CLI) | payer BC ==
[2017-09-29 14:27] LABS: HEMATOCRIT 44.4 % (42.0-52.0); MEAN CORPUSCULAR HEMOGLOBIN 27.4 pg (27.0-33.0); MEAN CORPUSCULAR HGB CONC 33.8 g/dl (32.0-36.5); PLATELET COUNT, AUTOMATED 248 10^3/uL (150-450); RED BLOOD COUNT 5.48 10^6/uL (4.30-6.10); RED CELL DISTRIBUTION WIDTH 13.3 % (11.5-14.5); WHITE BLOOD COUNT 5.8 10^3/uL (4.0-10.0)
[2017-09-29 14:33] LABS: INR 1.17; PROTHROMBIN TIME 15.2 SECONDS (12.4-14.5)
[2017-09-29 14:34] LABS: PARTIAL THROMBOPLASTIN TIME 35.6 SECONDS (26.8-37.9)
[2017-09-29 14:53] LABS: ANION GAP 7 MEQ/L (8-16); BLOOD UREA NITROGEN 14 MG/DL (7-18); CALCIUM LEVEL 9.2 MG/DL (8.5-10.1); CARBON DIOXIDE LEVEL 27 MEQ/L (21-32); CHLORIDE LEVEL 105 MEQ/L (98-107); CREATININE FOR GFR 0.93 MG/DL (0.70-1.30); GLOMERULAR FILTRATION RATE > 60.0 (>56); GLUCOSE, FASTING 95 MG/DL (70-100); POTASSIUM SERUM 4.2 MEQ/L (3.5-5.1); SODIUM LEVEL 139 MEQ/L (136-145)
== END ==
LOC: M LAB 13:44
DX: R59.0 Localized enlarged lymph nodes (principal); S22.41XA Multiple fractures of ribs, right side, initial encounter for closed fracture; X58.XXXA Exposure to other specified factors, initial encounter; Y92.9 Unspecified place or not applicable
CPT/HCPCS: 71046

== ENCOUNTER 2017-10-04 09:26 | Day surgery (SDC) | payer BC ==
[2017-10-04] MEDS: MUPIROCIN 2% OINT 22 GM TUBE TOP (09:45)
[2017-10-04] MEDS: LR 1,000 ML IV (10:01)
[2017-10-04] MEDS ORDERED: ROCURONIUM BROMIDE 50 MG/5 ML VIAL As Ordered ×2 (13:39→14:42)
[2017-10-04] MEDS: EPINEPHrine 1MG/10ML SYRINGE 1.5IN As Ordered (13:39)
[2017-10-04] MEDS ORDERED: PROPOFOL 200 MG/20 ML VIAL As Ordered (13:39)
[2017-10-04] MEDS ORDERED: MIDAZOLAM INJ 2 MG/2 ML VIAL (J2250) As Ordered (13:40)
[2017-10-04] MEDS ORDERED: LIDOCAINE 2% INJ 100 MG/5 ML SDV (FOR ANES.) As Ordered (13:40)
[2017-10-04] MEDS ORDERED: fentaNYL 100 MCG/2 ML INJECTION (J3010) As Ordered (13:40)
[2017-10-04] MEDS: BUPIVACAINE LIPOSOME/PF 1.3% 20 ML VIAL (13.3MG/ML)(EXPAREL) As Ordered (14:30)
[2017-10-04] MEDS: CETACAINE SPRAY 5GM As Ordered (14:32)
[2017-10-04] MEDS: MUPIROCIN 2% OINT 22 GM TUBE As Ordered (14:40)
[2017-10-04] MEDS ORDERED: PHENYLEPHRINE INJ 10MG/ML VIAL (J2370) As Ordered (14:44)
[2017-10-04] MEDS: THROMBIN SOLN 20,000 UNITS KIT As Ordered (15:00)
[2017-10-04] MEDS ORDERED: ONDANSETRON 4MG/2ML VIAL (J2405) As Ordered (15:07)
[2017-10-04] MEDS ORDERED: GLYCOPYRROLATE INJ 0.2 MG/ML 2 ML VIAL As Ordered (15:20)
[2017-10-04] MEDS ORDERED: NEOSTIGMINE 10 MG/10 ML VIAL (J2710) As Ordered (15:20)
[2017-10-04] MEDS ORDERED: fentaNYL 100 MCG/2 ML INJECTION (J3010) IV (16:15)
[2017-10-04] MEDS ORDERED: METOCLOPRAMIDE INJ 10MG/2ML VIAL (J2765) IV (16:15)
[2017-10-04] MEDS ORDERED: LR 1,000 ML IV (16:15)
[2017-10-04] MEDS ORDERED: ONDANSETRON 4MG/2ML VIAL (J2405) IV (16:15)
[2017-10-04] MEDS: PERCOCET 5MG/325MG TAB PO (16:44)
== END 2017-10-04 17:55 | disposition home or self-care (01) ==
LOC: M SDC 09:26
DX: R22.2 Localized swelling, mass and lump, trunk (principal); M12.9 Arthropathy, unspecified; S22.41XD Multiple fractures of ribs, right side, subsequent encounter for fracture with routine healing; E78.00 Pure hypercholesterolemia, unspecified; G47.9 Sleep disorder, unspecified; R06.83 Snoring; Z79.899 Other long term (current) drug therapy; Z79.01 Long term (current) use of anticoagulants; Z85.46 Personal history of malignant neoplasm of prostate; Z92.21 Personal history of antineoplastic chemotherapy
CPT/HCPCS: 39402

== ENCOUNTER → 2017-10-21 | Outpatient (CLI) | payer BC ==
[~2017-10-21] MED LIST changes: -ADVI200T PO; -ATOR1TAB19 PO; -BACT800T5 PO; -HYDR12CA PO; +ISOVUE-370 76% 100ML VIAL (Q9967) As Ordered; -LEVA1TAB2 PO; -MULT1TAB10 PO; -PERC5TAB12 PO; -PERCOCET PO; -TYLETAB14 PO
== END ==
LOC: M RAD 11:00
DX: R91.1 Solitary pulmonary nodule (principal); R59.0 Localized enlarged lymph nodes; Z87.81 Personal history of (healed) traumatic fracture
CPT/HCPCS: Q9967

== ENCOUNTER → 2017-10-21 | Outpatient (CLI) | payer BC ==
[2017-10-21 14:04] LABS: ABG BASE EXCESS 1.9 (-2.0-2.0); ABG DEVICE ROOM AIR; ABG HCO3 25.9 MEQ/L (22.0-26.0); ABG O2 SATURATION 96.5 % (95.0-99.0); ABG PARTIAL PRESSURE CO2 38.4 mmHg (35.0-45.0); ABG PARTIAL PRESSURE O2 84.8 mmHg (75.0-100.0); ABG STANDARD HCO3 26.1 MEQ/L (22.0-26.0); ABG pH (ARTERIAL) 7.446 UNITS (7.350-7.450)
[2017-10-21 14:11] LABS: APPEARANCE, URINE CLEAR (CLEAR); BACTERIA, URINE AUTO NEGATIVE (NEGATIVE); BILIRUBIN, URINE AUTO NEGATIVE (NEGATIVE); BLOOD, URINE BLOOD NEGATIVE (NEGATIVE); COLOR, URINE YELLOW (YELLOW); GLUCOSE, URINE (UA) AUTO NEGATIVE (NEGATIVE); KETONE, URINE AUTO NEGATIVE (NEGATIVE); LEUKOCYTE ESTERASE, URINE AUTO NEGATIVE (NEGATIVE); NITRITE, URINE AUTO NEGATIVE (NEGATIVE); PROTEIN, URINE AUTO NEGATIVE (NEGATIVE); RBC, URINE AUTO 0 /HPF (0-3); SPECIFIC GRAVITY URINE AUTO 1.048 (1.002-1.035); SQUAMOUS EPITHELIAL CELL UR AU 0 /HPF (0-6); UROBILINOGEN, URINE AUTO 0.2 mg/dL (0.0-2.0); WBC, URINE AUTO 0 /HPF (0-3)
[2017-10-21 14:21] LABS: HEMATOCRIT 42.3 % (42.0-52.0); HEMOGLOBIN 14.2 g/dl (13.5-17.5); MEAN CORPUSCULAR HEMOGLOBIN 27.3 pg (27.0-33.0); MEAN CORPUSCULAR HGB CONC 33.6 g/dl (32.0-36.5); MEAN CORPUSCULAR VOLUME 81.3 fl (80.0-96.0); PLATELET COUNT, AUTOMATED 236 10^3/uL (150-450); RED CELL DISTRIBUTION WIDTH 13.8 % (11.5-14.5); WHITE BLOOD COUNT 5.3 10^3/uL (4.0-10.0)
[2017-10-21 14:31] LABS: PROTHROMBIN TIME 14.4 SECONDS (12.4-14.5)
[2017-10-21 14:32] LABS: PARTIAL THROMBOPLASTIN TIME 35.4 SECONDS (26.8-37.9)
[2017-10-21 14:48] LABS: ANION GAP 8 MEQ/L (8-16); BLOOD UREA NITROGEN 17 MG/DL (7-18); CARBON DIOXIDE LEVEL 28 MEQ/L (21-32); CHLORIDE LEVEL 107 MEQ/L (98-107); CREATININE FOR GFR 1.17 MG/DL (0.70-1.30); GLOMERULAR FILTRATION RATE > 60.0 (>56); GLUCOSE, FASTING 113 MG/DL (70-100); POTASSIUM SERUM 3.9 MEQ/L (3.5-5.1); SODIUM LEVEL 143 MEQ/L (136-145)
== END ==
LOC: M ADMPAT 12:48
DX: Z01.818 Encounter for other preprocedural examination (principal); R22.2 Localized swelling, mass and lump, trunk
CPT/HCPCS: 71046

== ENCOUNTER → 2017-10-25 | Outpatient (CLI) | payer BC ==
[2017-10-25 12:50] LABS: PROSTATIC SPECIFIC AG MONITOR 0.36 NG/ML (< 4.0)
== END ==
LOC: M WUC 09:33
DX: Z85.46 Personal history of malignant neoplasm of prostate (principal)
CPT/HCPCS: 84153

== ENCOUNTER 2017-10-28 06:42 | Inpatient (IN) | payer BC ==
[2017-10-28] MEDS ORDERED: LIDOCAINE 1% MDV 20ML VIAL SQ (07:00)
[2017-10-28] MEDS: LR 1,000 ML IV (07:28)
[2017-10-28] MEDS ORDERED: MIDAZOLAM INJ 2 MG/2 ML VIAL (J2250) As Ordered ×2 (08:00→10:00)
[2017-10-28] MEDS ORDERED: fentaNYL 100 MCG/2 ML INJECTION (J3010) As Ordered ×2 (08:00→10:00)
[2017-10-28] MEDS: fentaNYL 100 MCG/2 ML INJECTION (J3010) IV ×2 (08:13→08:26)
[2017-10-28] MEDS: MIDAZOLAM INJ 2 MG/2 ML VIAL (J2250) IV ×2 (08:13→08:17)
[2017-10-28] MEDS: MUPIROCIN 2% OINT 22 GM TUBE TOP (08:15)
[2017-10-28] MEDS: MUPIROCIN 2% OINT 22 GM TUBE As Ordered (08:45)
[2017-10-28] MEDS: MOM 30ML SUSPENSION UDC PO (09:00)
[2017-10-28] MEDS ORDERED: CETACAINE SPRAY 5GM As Ordered (09:11)
[2017-10-28] MEDS ORDERED: VASOPRESSIN INJ 20 UNITS/ML VIAL As Ordered (09:57)
[2017-10-28] MEDS ORDERED: dexameTHASONE 4 MG/ML 1ML VIAL (J1100) As Ordered (10:00)
[2017-10-28] MEDS ORDERED: PROPOFOL 200 MG/20 ML VIAL As Ordered (10:00)
[2017-10-28] MEDS ORDERED: LIDOCAINE 2% INJ 100 MG/5 ML SDV (FOR ANES.) As Ordered (10:00)
[2017-10-28] MEDS ORDERED: PHENYLEPHRINE INJ 10MG/ML VIAL (J2370) As Ordered (10:00)
[2017-10-28] MEDS ORDERED: ROCURONIUM BROMIDE 50 MG/5 ML VIAL As Ordered (10:00)
[2017-10-28] MEDS ORDERED: PHENYLephrine HCL 500 MCG/5 ML (100MCG/ML) SYRINGE (J2370) As Ordered ×2 (10:05)
[2017-10-28] MEDS ORDERED: ONDANSETRON 4MG/2ML VIAL (J2405) As Ordered (10:47)
[2017-10-28] MEDS ORDERED: NEOSTIGMINE 10 MG/10 ML VIAL (J2710) As Ordered (10:52)
[2017-10-28] MEDS ORDERED: GLYCOPYRROLATE INJ 0.2 MG/ML 2 ML VIAL As Ordered ×2 (10:52)
[2017-10-28] MEDS ORDERED: KETOROLAC 60 MG/2 ML VIAL (J1885) As Ordered (11:22)
[2017-10-28] MEDS: BUPIVACAINE HCL 0.5% 10 ML VIAL As Ordered (11:25)
[2017-10-28] MEDS: BUPIVACAINE LIPOSOME/PF 1.3% 20 ML VIAL (13.3MG/ML)(EXPAREL) As Ordered (11:25)
[2017-10-28] MEDS ORDERED: PERCOCET 5MG/325MG TAB PO ×2 (11:30)
[2017-10-28] MEDS ORDERED: BISACODYL 10 MG SUPP PR (11:30)
[2017-10-28] MEDS ORDERED: LEVALBUTEROL 1.25 MG/0.5 ML CONCENTRATE NEB NEB (11:30)
[2017-10-28] MEDS ORDERED: FENTANYL 2MCG/ML BUPIVACAINE 0.0625% NACL 250ML IV BAG As Ordered (11:37)
[2017-10-28] MEDS: FENTANYL/BUPIVACAINE/NACL BAG 250 ML EPIDURAL (12:00)
[2017-10-28] MEDS ORDERED: EPIDURAL/PCA KEYS XX (12:00)
[2017-10-28] MEDS: KCL 20MEQ IN D5/NS 1000ML 1,000 ML IV (12:00)
[2017-10-28] MEDS ORDERED: METOCLOPRAMIDE INJ 10MG/2ML VIAL (J2765) IV (12:00)
[2017-10-28] MEDS ORDERED: NALOXONE INJ 0.4 MG/1 ML VIAL (J2310) IV (12:00)
[2017-10-28] MEDS ORDERED: diphenhydrAMINE INJ 50MG/ML VIAL (J1200) IV (12:00)
[2017-10-28] MEDS ORDERED: WALLBOXKEY XX (12:00)
[2017-10-28 12:07] LABS: ABG BASE EXCESS -1.2 (-2.0-2.0); ABG HCO3 25.3 MEQ/L (22.0-26.0); ABG O2 SATURATION 94.2 % (95.0-99.0); ABG PARTIAL PRESSURE CO2 48.9 mmHg (35.0-45.0); ABG STANDARD HCO3 23.4 MEQ/L (22.0-26.0); ABG TOTAL CO2 26.8 MEQ/L (23.0-31.0); ABG pH (ARTERIAL) 7.331 UNITS (7.350-7.450)
[2017-10-28 12:08] LABS: BASO % 0.4 % (0.0-1.0); EOS # 0.1 10^3/uL (0.0-0.50); EOS % 1.5 % (0.0-3.0); HEMATOCRIT 42.2 % (42.0-52.0); HEMOGLOBIN 14.1 g/dl (13.5-17.5); IMMATURE GRANULOCYTE % 0.3 % (0-3.0); LYMPH # 0.5 10^3/uL (1.5-4.5); LYMPH % 6.7 % (24.0-44.0); MEAN CORPUSCULAR HEMOGLOBIN 27.4 pg (27.0-33.0); MEAN CORPUSCULAR HGB CONC 33.4 g/dl (32.0-36.5); MEAN CORPUSCULAR VOLUME 82.1 fl (80.0-96.0); MONO # 0.2 10^3/uL (0.0-0.8); MONO % 2.8 % (0.0-5.0); NEUTROPHILS % 88.3 % (36.0-66.0); PLATELET COUNT, AUTOMATED 240 10^3/uL (150-450); RED BLOOD COUNT 5.14 10^6/uL (4.30-6.10); RED CELL DISTRIBUTION WIDTH 14.3 % (11.5-14.5); WHITE BLOOD COUNT 7.9 10^3/uL (4.0-10.0)
[2017-10-28] MEDS: ACETAMINOPHEN TAB 650MG DOSE (2X325MG) PO (12:40)
[2017-10-28 12:50] LABS: ANION GAP 6 MEQ/L (8-16); BLOOD UREA NITROGEN 18 MG/DL (7-18); CALCIUM LEVEL 8.3 MG/DL (8.8-10.2); CARBON DIOXIDE LEVEL 25 MEQ/L (21-32); CHLORIDE LEVEL 109 MEQ/L (98-107); CREATININE FOR GFR 1.14 MG/DL (0.70-1.30); GLOMERULAR FILTRATION RATE > 60.0 (>49); GLUCOSE, FASTING 157 MG/DL (70-100); POTASSIUM SERUM 4.5 MEQ/L (3.5-5.1); SODIUM LEVEL 140 MEQ/L (136-145)
[2017-10-28] MEDS ORDERED: ONDANSETRON 4MG/2ML VIAL (J2405) IV (15:30)
[2017-10-28] MEDS: LEVALBUTEROL 1.25 MG/0.5 ML CONCENTRATE NEB NEB ×2 (15:32→19:55)
[2017-10-28] MEDS: KETOROLAC 30 MG/ML VIAL (J1885) IV (17:52)
[2017-10-28] MEDS: DOCUSATE SODIUM 100 MG CAP PO (21:08)
[2017-10-28] MEDS: AMIODARONE 200 MG TAB (PACERONE) PO (21:08)
[2017-10-28] MEDS: HEPARIN SOD (PORCINE) 5000 UNITS/ML VIAL SC (21:10)
[2017-10-29] MEDS: LEVALBUTEROL 1.25 MG/0.5 ML CONCENTRATE NEB NEB ×4 (01:09→20:14)
[2017-10-29] MEDS: KCL 20MEQ IN D5/NS 1000ML 1,000 ML IV ×2 (02:43→14:40)
[2017-10-29 04:07] LABS: BASO % 0.1 % (0.0-1.0); HEMATOCRIT 37.1 % (42.0-52.0); HEMOGLOBIN 12.2 g/dl (13.5-17.5); IMMATURE GRANULOCYTE % 0.3 % (0-3.0); LYMPH # 0.5 10^3/uL (1.5-4.5); LYMPH % 4.3 % (24.0-44.0); MEAN CORPUSCULAR HEMOGLOBIN 26.9 pg (27.0-33.0); MEAN CORPUSCULAR HGB CONC 32.9 g/dl (32.0-36.5); MEAN CORPUSCULAR VOLUME 81.7 fl (80.0-96.0); MONO # 0.7 10^3/uL (0.0-0.8); MONO % 6.1 % (0.0-5.0); NEUTROPHILS # 9.9 10^3/uL (1.8-7.7); NEUTROPHILS % 89.2 % (36.0-66.0); PLATELET COUNT, AUTOMATED 221 10^3/uL (150-450); RED BLOOD COUNT 4.54 10^6/uL (4.30-6.10); RED CELL DISTRIBUTION WIDTH 14.5 % (11.5-14.5); WHITE BLOOD COUNT 11.1 10^3/uL (4.0-10.0)
[2017-10-29 04:22] LABS: ANION GAP 7 MEQ/L (8-16); BLOOD UREA NITROGEN 15 MG/DL (7-18); CALCIUM LEVEL 8.3 MG/DL (8.8-10.2); CARBON DIOXIDE LEVEL 25 MEQ/L (21-32); CHLORIDE LEVEL 107 MEQ/L (98-107); CREATININE FOR GFR 1.12 MG/DL (0.70-1.30); GLOMERULAR FILTRATION RATE > 60.0 (>49); GLUCOSE, FASTING 144 MG/DL (70-100); POTASSIUM SERUM 4.6 MEQ/L (3.5-5.1); SODIUM LEVEL 139 MEQ/L (136-145)
[2017-10-29] MEDS: KETOROLAC 30 MG/ML VIAL (J1885) IV ×4 (05:51→18:30)
[2017-10-29 06:08] LABS: ABG HCO3 22.2 MEQ/L (22.0-26.0); ABG O2 SATURATION 98.4 % (95.0-99.0); ABG STANDARD HCO3 22.8 MEQ/L (22.0-26.0); ABG TOTAL CO2 23.3 MEQ/L (23.0-31.0); ABG pH (ARTERIAL) 7.407 UNITS (7.350-7.450)
[2017-10-29] MEDS: MULTIVITAMINS/MINERALS THERAP 1 TAB PO (08:41)
[2017-10-29] MEDS: PANTOPRAZOLE 40MG TAB (PROTONIX) PO (08:41)
[2017-10-29] MEDS: MOM 30ML SUSPENSION UDC PO (08:41)
[2017-10-29] MEDS: METOPROLOL SUCC (TopROL XL) 100MG *XL* TAB PO (08:42)
[2017-10-29] MEDS: ATORVASTATIN 10 MG TAB PO (08:42)
[2017-10-29] MEDS: DOCUSATE SODIUM 100 MG CAP PO ×2 (08:42→20:40)
[2017-10-29] MEDS: AMIODARONE 200 MG TAB (PACERONE) PO ×2 (08:42→20:41)
[2017-10-29] MEDS: diltiaZEM **CD** 180 MG CAP PO (08:42)
[2017-10-29] MEDS: HEPARIN SOD (PORCINE) 5000 UNITS/ML VIAL SC ×2 (08:43→20:40)
[2017-10-29] MEDS ORDERED: PANTOPRAZOLE 40MG INJ (PROTONIX) (C9113) IV (09:00)
[2017-10-29] MEDS: FENTANYL/BUPIVACAINE/NACL BAG 250 ML EPIDURAL (12:00)
[2017-10-29] MEDS: NORCO, ANEXSIA 5/325MG TABLET (HYDROcodone/ACETAMINOPHEN) PO ×3 (12:50→20:41)
[2017-10-29] MEDS: RIVAROXABAN 20 MG TAB (XARELTO) PO (20:41)
[2017-10-30] MEDS: KETOROLAC 30 MG/ML VIAL (J1885) IV ×2 (00:01→05:24)
[2017-10-30] MEDS: LEVALBUTEROL 1.25 MG/0.5 ML CONCENTRATE NEB NEB ×4 (01:26→19:58)
[2017-10-30] MEDS: NORCO, ANEXSIA 5/325MG TABLET (HYDROcodone/ACETAMINOPHEN) PO ×5 (03:40→23:31)
[2017-10-30 04:02] LABS: BASO % 0.1 % (0.0-1.0); EOS % 0.3 % (0.0-3.0); HEMATOCRIT 37.6 % (42.0-52.0); HEMOGLOBIN 12.2 g/dl (13.5-17.5); IMMATURE GRANULOCYTE % 0.3 % (0-3.0); LYMPH # 0.7 10^3/uL (1.5-4.5); LYMPH % 7.3 % (24.0-44.0); MEAN CORPUSCULAR HEMOGLOBIN 26.8 pg (27.0-33.0); MEAN CORPUSCULAR HGB CONC 32.4 g/dl (32.0-36.5); MEAN CORPUSCULAR VOLUME 82.6 fl (80.0-96.0); MONO # 0.8 10^3/uL (0.0-0.8); NEUTROPHILS # 8.5 10^3/uL (1.8-7.7); PLATELET COUNT, AUTOMATED 200 10^3/uL (150-450); RED BLOOD COUNT 4.55 10^6/uL (4.30-6.10); RED CELL DISTRIBUTION WIDTH 14.8 % (11.5-14.5); WHITE BLOOD COUNT 10.1 10^3/uL (4.0-10.0)
[2017-10-30 04:22] LABS: ANION GAP 6 MEQ/L (8-16); BLOOD UREA NITROGEN 25 MG/DL (7-18); CALCIUM LEVEL 8.4 MG/DL (8.8-10.2); CARBON DIOXIDE LEVEL 28 MEQ/L (21-32); CHLORIDE LEVEL 108 MEQ/L (98-107); CREATININE FOR GFR 1.23 MG/DL (0.70-1.30); GLOMERULAR FILTRATION RATE > 60.0 (>49); GLUCOSE, FASTING 112 MG/DL (70-100); POTASSIUM SERUM 4.6 MEQ/L (3.5-5.1); SODIUM LEVEL 142 MEQ/L (136-145)
[2017-10-30] MEDS: KCL 20MEQ IN D5/NS 1000ML 1,000 ML IV ×2 (07:59→16:55)
[2017-10-30] MEDS: MULTIVITAMINS/MINERALS THERAP 1 TAB PO (08:45)
[2017-10-30] MEDS: AMIODARONE 200 MG TAB (PACERONE) PO ×2 (08:45→20:52)
[2017-10-30] MEDS: DOCUSATE SODIUM 100 MG CAP PO ×2 (08:45→20:52)
[2017-10-30] MEDS: MOM 30ML SUSPENSION UDC PO (08:45)
[2017-10-30] MEDS: METOPROLOL SUCC (TopROL XL) 100MG *XL* TAB PO (08:46)
[2017-10-30] MEDS: ATORVASTATIN 10 MG TAB PO (08:46)
[2017-10-30] MEDS: diltiaZEM **CD** 180 MG CAP PO (08:46)
[2017-10-30] MEDS: PANTOPRAZOLE 40MG TAB (PROTONIX) PO (08:46)
[2017-10-30] MEDS: HEPARIN SOD (PORCINE) 5000 UNITS/ML VIAL SC ×2 (08:47→20:53)
[2017-10-30] MEDS ORDERED: SLF 3 ML SYR IV (17:45)
[2017-10-30] MEDS: RIVAROXABAN 20 MG TAB (XARELTO) PO (17:46)
[2017-10-30] MEDS: SLF 3 ML SYR IV (20:53)
[2017-10-31] MEDS: LEVALBUTEROL 1.25 MG/0.5 ML CONCENTRATE NEB NEB ×2 (02:24→07:33)
[2017-10-31] MEDS: SLF 3 ML SYR IV (02:54)
[2017-10-31] MEDS: ONDANSETRON 4MG/2ML VIAL (J2405) IV (02:54)
[2017-10-31 05:17] LABS: BASO % 0.3 % (0.0-1.0); EOS # 0.2 10^3/uL (0.0-0.50); EOS % 3.4 % (0.0-3.0); HEMATOCRIT 37.1 % (42.0-52.0); HEMOGLOBIN 12.1 g/dl (13.5-17.5); IMMATURE GRANULOCYTE % 0.4 % (0-3.0); LYMPH # 0.7 10^3/uL (1.5-4.5); LYMPH % 9.9 % (24.0-44.0); MEAN CORPUSCULAR HGB CONC 32.6 g/dl (32.0-36.5); MEAN CORPUSCULAR VOLUME 82.8 fl (80.0-96.0); MONO # 0.6 10^3/uL (0.0-0.8); MONO % 9.2 % (0.0-5.0); NEUTROPHILS # 5.2 10^3/uL (1.8-7.7); NEUTROPHILS % 76.8 % (36.0-66.0); PLATELET COUNT, AUTOMATED 206 10^3/uL (150-450); RED BLOOD COUNT 4.48 10^6/uL (4.30-6.10); WHITE BLOOD COUNT 6.8 10^3/uL (4.0-10.0)
[2017-10-31 05:43] LABS: ANION GAP 6 MEQ/L (8-16); BLOOD UREA NITROGEN 20 MG/DL (7-18); CALCIUM LEVEL 8.4 MG/DL (8.8-10.2); CARBON DIOXIDE LEVEL 29 MEQ/L (21-32); CHLORIDE LEVEL 108 MEQ/L (98-107); CREATININE FOR GFR 1.07 MG/DL (0.70-1.30); GLOMERULAR FILTRATION RATE > 60.0 (>49); GLUCOSE, FASTING 108 MG/DL (70-100); SODIUM LEVEL 143 MEQ/L (136-145)
[2017-10-31] MEDS: MULTIVITAMINS/MINERALS THERAP 1 TAB PO (08:18)
[2017-10-31] MEDS: PANTOPRAZOLE 40MG TAB (PROTONIX) PO (08:18)
[2017-10-31] MEDS: ATORVASTATIN 10 MG TAB PO (08:18)
[2017-10-31] MEDS: AMIODARONE 200 MG TAB (PACERONE) PO (08:19)
[2017-10-31] MEDS: METOPROLOL SUCC (TopROL XL) 100MG *XL* TAB PO (08:19)
[2017-10-31] MEDS: MOM 30ML SUSPENSION UDC PO (08:20)
[2017-10-31] MEDS: diltiaZEM **CD** 180 MG CAP PO (08:20)
[2017-10-31] MEDS: DOCUSATE SODIUM 100 MG CAP PO (08:20)
[2017-10-31] MEDS: NORCO, ANEXSIA 5/325MG TABLET (HYDROcodone/ACETAMINOPHEN) PO (08:21)
[2017-10-31] MEDS: HEPARIN SOD (PORCINE) 5000 UNITS/ML VIAL SC (08:23)
== END 2017-10-31 13:16 | disposition home or self-care (01) | DRG 143 ==
LOC: M OR 06:42 → M PCU 13:46
PROC: 0WBC4ZX Excision of Mediastinum, Percutaneous Endoscopic Approach, Diagnostic (ICD-10-PCS; principal; 2017-10-28 08:30)
DX: D15.2 Benign neoplasm of mediastinum (principal); I48.91 Unspecified atrial fibrillation; I10 Essential (primary) hypertension; E78.00 Pure hypercholesterolemia, unspecified; T81.82XA Emphysema (subcutaneous) resulting from a procedure, initial encounter; Z79.01 Long term (current) use of anticoagulants; Z79.899 Other long term (current) drug therapy; Z85.46 Personal history of malignant neoplasm of prostate; Y83.8 Other surgical procedures as the cause of abnormal reaction of the patient, or of later complication, without mention of misadventure at the time of the procedure

== ENCOUNTER → 2017-11-10 | Outpatient (CLI) | payer BC | LOC: M SMT 09:45 | DX: R22.2 Localized swelling, mass and lump, trunk (principal) | CPT/HCPCS: 71046 ==

== ENCOUNTER → 2017-12-08 | Outpatient (CLI) | payer BC | LOC: M SLEEP HO 12:31 | DX: G47.30 Sleep apnea, unspecified (principal) | CPT/HCPCS: G0399 ==

== ENCOUNTER 2017-12-13 07:23 | Day surgery (SDC) | payer OTHER, BC ==
[2017-12-13] MEDS ORDERED: LR 1,000 ML IV ×2 (07:45)
[2017-12-13] MEDS ORDERED: PROPOFOL 200 MG/20 ML VIAL As Ordered ×2 (08:20)
[2017-12-13] MEDS ORDERED: LIDOCAINE 2% INJ 100 MG/5 ML SDV (FOR ANES.) As Ordered ×2 (08:20)
== END 2017-12-13 09:06 | disposition home or self-care (01) ==
LOC: M SDC 07:23
DX: I48.91 Unspecified atrial fibrillation (principal); I10 Essential (primary) hypertension; E78.5 Hyperlipidemia, unspecified; Z79.02 Long term (current) use of antithrombotics/antiplatelets; G47.30 Sleep apnea, unspecified
CPT/HCPCS: 92960

== ENCOUNTER 2017-12-28 09:12 | Day surgery (SDC) | payer BC ==
[2017-12-28] MEDS: NS 1,000 ML IV (09:28)
[2017-12-28] MEDS ORDERED: PROPOFOL 200 MG/20 ML VIAL As Ordered (10:34)
== END 2017-12-28 11:11 | disposition home or self-care (01) ==
LOC: M OPP 09:12
DX: Z12.11 Encounter for screening for malignant neoplasm of colon (principal); Z86.010 Personal history of colon polyps; Z83.71 Family history of colonic polyps; D12.2 Benign neoplasm of ascending colon; K64.0 First degree hemorrhoids; K57.30 Diverticulosis of large intestine without perforation or abscess without bleeding; I48.91 Unspecified atrial fibrillation; I10 Essential (primary) hypertension; E78.5 Hyperlipidemia, unspecified; M19.90 Unspecified osteoarthritis, unspecified site; G47.30 Sleep apnea, unspecified; R06.83 Snoring; Z85.46 Personal history of malignant neoplasm of prostate; Z92.3 Personal history of irradiation; R22.2 Localized swelling, mass and lump, trunk; N40.1 Benign prostatic hyperplasia with lower urinary tract symptoms; Z79.01 Long term (current) use of anticoagulants; Z79.899 Other long term (current) drug therapy; Z87.891 Personal history of nicotine dependence
CPT/HCPCS: 45380

== ENCOUNTER → 2018-01-20 | Outpatient (CLI) | payer BC | LOC: M SLEEP 19:32 | DX: G47.33 Obstructive sleep apnea (adult) (pediatric) (principal) | CPT/HCPCS: 95811 ==

== ENCOUNTER → 2018-04-23 | Outpatient (CLI) | payer BC ==
[2018-04-23 18:29] LABS: ALBUMIN 3.7 GM/DL (3.2-5.2); ALBUMIN/GLOBULIN RATIO 1.19 (1.00-1.93); ALKALINE PHOSPHATASE 68 U/L (45-117); ALT/SGPT 31 U/L (12-78); ANION GAP 6 MEQ/L (8-16); AST/SGOT 21 U/L (7-37); BILIRUBIN,TOTAL 0.7 MG/DL (0.2-1.0); BLOOD UREA NITROGEN 16 MG/DL (7-18); CALCIUM LEVEL 8.6 MG/DL (8.8-10.2); CARBON DIOXIDE LEVEL 29 MEQ/L (21-32); CHLORIDE LEVEL 104 MEQ/L (98-107); CHOLESTEROL LEVEL 211 MG/DL (<200); CHOLESTEROL RISK RATIO 4.395 (<5); CREATININE FOR GFR 1.03 MG/DL (0.70-1.30); FREE T4 1.24 NG/DL (0.76-1.46); GLOMERULAR FILTRATION RATE > 60.0 (>49); GLUCOSE, FASTING 99 MG/DL (70-100); HDL CHOLESTEROL 48 MG/DL (>40); LDL CHOLESTEROL 116 MG/DL (<100); NON-HDL-C 163 MG/DL; POTASSIUM SERUM 4.8 MEQ/L (3.5-5.1); SODIUM LEVEL 139 MEQ/L (136-145); TOTAL PROTEIN 6.8 GM/DL (6.4-8.2); TRIGLYCERIDES LEVEL 237 MG/DL (<150)
[2018-04-23 18:45] LABS: BASO % 0.6 % (0.0-1.0); EOS # 0.1 10^3/uL (0.0-0.50); EOS % 2.6 % (0.0-3.0); HEMATOCRIT 47.6 % (42.0-52.0); HEMOGLOBIN 15.2 g/dl (13.5-17.5); IMMATURE GRANULOCYTE % 0.9 % (0-3.0); LYMPH # 0.7 10^3/uL (1.5-4.5); MEAN CORPUSCULAR HEMOGLOBIN 28.5 pg (27.0-33.0); MEAN CORPUSCULAR HGB CONC 31.9 g/dl (32.0-36.5); MEAN CORPUSCULAR VOLUME 89.1 fl (80.0-96.0); MONO # 0.6 10^3/uL (0.0-0.8); MONO % 10.9 % (0.0-5.0); NEUTROPHILS # 3.8 10^3/uL (1.8-7.7); PLATELET COUNT, AUTOMATED 236 10^3/uL (150-450); RED BLOOD COUNT 5.34 10^6/uL (4.30-6.10); RED CELL DISTRIBUTION WIDTH 13.3 % (11.5-14.5); WHITE BLOOD COUNT 5.3 10^3/uL (4.0-10.0)
[2018-04-24 09:02] LABS: TOTAL 25(OH) VITAMIN D 39.3 NG/ML (30.0-100.0)
== END ==
LOC: M WUC 09:26
DX: E55.9 Vitamin D deficiency, unspecified (principal); E78.2 Mixed hyperlipidemia; I48.91 Unspecified atrial fibrillation; I10 Essential (primary) hypertension
CPT/HCPCS: 84443

== ENCOUNTER → 2018-04-23 | Outpatient (CLI) | payer BC ==
[2018-04-23 18:19] LABS: PROSTATIC SPECIFIC AG MONITOR 0.53 NG/ML (< 4.0)
== END ==
LOC: M WUC 09:30
DX: Z85.46 Personal history of malignant neoplasm of prostate (principal)
CPT/HCPCS: 84153

== ENCOUNTER 2018-09-26 21:41 | Emergency (ER) | payer BC, OTHER ==
[~2018-09-26] VITALS: Ht 175.3 cm; Wt 121.6 kg
[~2018-09-26 21:41] MED LIST changes: +ADVI200T PO; +AMIO200T PO; +ATOR1TAB19 PO; +BACT800T5 PO; +DILT360C16 PO; +HYDR12CA PO; -ISOVUE-370 76% 100ML VIAL (Q9967) As Ordered; +LEVA1TAB2 PO; +METO1TAB33 PO; +MULT1TAB10 PO; +PERC5TAB12 PO; +PERCOCET PO; +TYLETAB14 PO; +XARE20TA PO
[2018-09-26 22:26] LABS: BASO % 0.4 % (0.0-1.0); EOS # 0.2 10^3/uL (0.0-0.50); EOS % 3.2 % (0.0-3.0); HEMATOCRIT 44.7 % (42.0-52.0); HEMOGLOBIN 14.6 g/dl (13.5-17.5); MEAN CORPUSCULAR HGB CONC 32.7 g/dl (32.0-36.5); MEAN CORPUSCULAR VOLUME 85.6 fl (80.0-96.0); MONO # 0.7 10^3/uL (0.0-0.8); MONO % 10.5 % (0.0-5.0); NEUTROPHILS # 4.9 10^3/uL (1.8-7.7); NEUTROPHILS % 71.5 % (36.0-66.0); PLATELET COUNT, AUTOMATED 233 10^3/uL (150-450); RED BLOOD COUNT 5.22 10^6/uL (4.30-6.10); WHITE BLOOD COUNT 6.9 10^3/uL (4.0-10.0)
[2018-09-26 22:38] LABS: INR 1.57
[2018-09-26 22:39] LABS: PARTIAL THROMBOPLASTIN TIME 40.7 SECONDS (25.4-37.6)
[2018-09-26 22:58] LABS: ALBUMIN 3.8 GM/DL (3.2-5.2); ALT/SGPT 33 U/L (12-78); BILIRUBIN,DIRECT < 0.1 MG/DL (0.0-0.2); BILIRUBIN,TOTAL 0.3 MG/DL (0.2-1.0); BLOOD UREA NITROGEN 21 MG/DL (7-18); CALCIUM LEVEL 8.7 MG/DL (8.8-10.2); CARBON DIOXIDE LEVEL 31 MEQ/L (21-32); CHLORIDE LEVEL 109 MEQ/L (98-107); CREATININE FOR GFR 1.31 MG/DL (0.70-1.30); GLOMERULAR FILTRATION RATE 59.4 (>49); GLUCOSE, FASTING 123 MG/DL (70-100); POTASSIUM SERUM 4.4 MEQ/L (3.5-5.1); SODIUM LEVEL 144 MEQ/L (136-145); TOTAL PROTEIN 6.7 GM/DL (6.4-8.2)
[2018-09-26 23:02] LABS: BILIRUBIN, URINE MANUAL NEGATIVE (NEGATIVE); GLUCOSE, URINE (UA) MANUAL NEGATIVE (NEGATIVE); KETONE, URINE MANUAL NEGATIVE (NEGATIVE); UROBILINOGEN, URINE MANUAL NORMAL (NORMAL)
[2018-09-26 23:07] LABS: BACTERIA, URINE LARGE AMOUNT; HYALINE CAST, URINE NONE SEEN /lpf (0-1); MUCUS, URINE SMALL AMOUNT (NEGATIVE); RBC, URINE TNTC /hpf (0-3); SQUAMOUS EPITHELIAL CELL URINE NONE SEEN /hpf (SMALL AMT)
[2018-09-26] MEDS ORDERED: ISOVUE-370 76% 125ML VIAL (Q9967 PER ML) As Ordered ONE (23:12)
[2018-09-26] MEDS ORDERED: NS 1,000 ML IV ONE (23:15)
--- NOTE | 2018-09-27 00:14 | REPVR ---
EXAM: CT Abdomen and Pelvis With Contrast EXAM DATE/TIME: 09/26/2018 11:01 PM CLINICAL HISTORY: 62 years old, male; Signs and symptoms; Other: Hematuria; Prior surgery; Surgery date: 6+ months; Surgery type: Prostate TECHNIQUE: Imaging protocol: Axial computed tomography images of the abdomen and pelvis with intravenous contrast. Coronal and sagittal reformatted images were created and reviewed. Radiation optimization: All CT scans at this facility use at least one of these dose optimization techniques: automated exposure control; mA and/or kV adjustment per patient size (includes targeted exams where dose is matched to clinical indication); or iterative reconstruction. Contrast material: iso Contrast volume: 100 ml Contrast route: ac COMPARISON: CT ABD PELVIS WITH CONTRAST 07/08/2016 11:05 AM FINDINGS: Lower thorax: No acute findings. ABDOMEN: Liver: Probable small subcapsular cyst in the posterior right hepatic lobe measuring 10 mm. Gallbladder and bile ducts: The gallbladder is contracted with no stones. Pancreas: Normal. No ductal dilation. Spleen: Normal. No splenomegaly. Adrenals: Normal. No mass. Kidneys and ureters: Normal. No hydronephrosis. Stomach and bowel: There is colonic diverticulosis without evidence of diverticulitis. Appendix: A normal appendix is seen. PELVIS: Bladder: Unremarkable as visualized. Reproductive: Absent prostate. ABDOMEN and PELVIS: Intraperitoneal space: Normal. No free air. No significant fluid collection. Bones/joints: Degenerative changes of the lumbar spine with facet arthropathy. Soft tissues: Small fat filled epigastric ventral wall hernia just above the umbilicus. Vasculature: There is minimal atherosclerotic calcification of the abdominal aorta. Lymph nodes: Normal. No enlarged lymph nodes. IMPRESSION: 1. Resolution of pelvic induration and bilateral pelvic sidewall collections since 07/08/2016. There is resolution of bilateral hydronephrosis as well. 2. Colonic diverticulosis without diverticulitis. 3. Absent prostate. 4. Otherwise negative CT abdomen/pelvis. No renal or ureteral calculi are evident and there is no evidence of obstructive uropathy. Electronically signed by: Brayden Knox On 09/27/2018 00:13:54 AM
[2018-09-27] MEDS ORDERED: CIPR-249 PO (00:22)
[2018-09-27] MEDS ORDERED: CIPROFLOXACIN 500 MG TAB PO ONE (00:30)
[2018-09-27 00:42] VITALS: BP 138/86
== END 2018-09-27 00:34 | disposition home or self-care (01) ==
LOC: M ED 21:41
DX: N39.0 Urinary tract infection, site not specified (principal); R31.9 Hematuria, unspecified; I48.91 Unspecified atrial fibrillation; I10 Essential (primary) hypertension; E78.5 Hyperlipidemia, unspecified; M54.9 Dorsalgia, unspecified; Z85.46 Personal history of malignant neoplasm of prostate; Z79.899 Other long term (current) drug therapy; Z79.01 Long term (current) use of anticoagulants
CPT/HCPCS: 36415; 74177; 80048; 80076; 81000; 85025; 85610; 85730; 87086; 87880; 96360; 99284; Q9967

== ENCOUNTER → 2018-10-02 | Outpatient (CLI) | payer BC ==
[~2018-10-02] MED LIST changes: +CIPR-249 PO
== END ==
LOC: M SMT 08:46
PROVIDERS: ATTEND Urology
DX: R31.0 Gross hematuria (principal)

== ENCOUNTER → 2018-10-23 | Outpatient (CLI) | payer BC, OTHER ==
[~2018-10-23] MED LIST changes: +DILT1CAP9 PO; -DILT360C16 PO
--- NOTE | 2018-10-23 17:56 | REP ---
Left knee series: Six views. History: Left knee pain. Findings: Six views of the left knee demonstrate moderate three compartment osteoarthritis of the knee. There is some joint space narrowing and well established osteophyte formation medially. Patellofemoral and lateral compartment osteophyte formation is seen. There is a normal fabella. No loose body is apparent. No erosive changes seen. Impression: Moderate three compartment left knee osteoarthritis. Electronically Signed by Philipp Lara MD 10/24/2018 08:01 A
== END ==
LOC: M WUC 16:18
PROVIDERS: ATTEND Physician Assistant
DX: M25.562 Pain in left knee (principal)

== ENCOUNTER → 2018-12-17 | Outpatient (CLI) | payer BC, OTHER | LOC: M WUC 08:29 | PROVIDERS: ATTEND Urology | DX: C61 Malignant neoplasm of prostate (principal) ==

== ENCOUNTER → 2018-12-17 | Outpatient (CLI) | payer BC, OTHER ==
[2018-12-17 17:59] LABS: ALBUMIN 3.7 GM/DL (3.2-5.2); ALT/SGPT 37 U/L (12-78); BILIRUBIN,TOTAL 0.7 MG/DL (0.2-1.0); BLOOD UREA NITROGEN 15 MG/DL (7-18); CALCIUM LEVEL 8.7 MG/DL (8.8-10.2); CARBON DIOXIDE LEVEL 27 MEQ/L (21-32); CHLORIDE LEVEL 106 MEQ/L (98-107); CHOLESTEROL LEVEL 190 MG/DL (<200); CHOLESTEROL RISK RATIO 4.318 (<5); CREATININE FOR GFR 0.84 MG/DL (0.70-1.30); GLOMERULAR FILTRATION RATE > 60.0 (>49); GLUCOSE, FASTING 103 MG/DL (70-100); HDL CHOLESTEROL 44 MG/DL (>40); LDL CHOLESTEROL 104 MG/DL (<100); NON-HDL-C 146 MG/DL; POTASSIUM SERUM 4.3 MEQ/L (3.5-5.1); SODIUM LEVEL 140 MEQ/L (136-145); TOTAL PROTEIN 6.5 GM/DL (6.4-8.2); TRIGLYCERIDES LEVEL 210 MG/DL (<150)
== END ==
LOC: M WUC 08:33
PROVIDERS: ATTEND Family Medicine
DX: E78.2 Mixed hyperlipidemia (principal)

== ENCOUNTER → 2019-01-22 | Outpatient (CLI) | payer BC, OTHER ==
--- NOTE | 2019-01-22 17:13 | REP ---
RIGHT KNEE SERIES: Six views of the right knee are performed. No fracture or dislocation is seen. There is mild medial joint space narrowing with subchondral sclerosis. There is bilateral patellofemoral compartment narrowing with subchondral sclerosis and a tiny spur of the lateral patellar facet. No definite joint effusion is seen. There is a subcutaneous calcific density in the distal thigh measuring about 1 cm in diameter. IMPRESSION: Mild degenerative changes of the knee. Electronically Signed by Alexander Newton MD 01/23/2019 05:24 P
== END ==
LOC: M WUC 15:41
PROVIDERS: ATTEND Physician Assistant
DX: M17.11 Unilateral primary osteoarthritis, right knee (principal)

== ENCOUNTER → 2019-01-26 | Outpatient (CLI) | payer BC ==
[~2019-01-26] MED LIST changes: +ISOVUE-370 76% 100ML VIAL (Q9967) As Ordered ONE
--- NOTE | 2019-01-26 12:16 | REP ---
CT abdomen and pelvis with IV but without oral contrast: History: Rising PSA level after treatment for malignancy of the prostate. CT contrast dose: 100 mL of intravenous Isovue 370. CT findings: Preliminary digital wreath maker radiograph shows an unremarkable bowel gas pattern. The lung bases are clear on axial CT images. There is no evidence of pleural effusion or upper abdominal ascites. The liver is normal in size. There is a tiny 9 mm cyst adjacent to the a posterior capsule at the level of the diaphragm in the right lobe unchanged from prior CT study March 04, 2015. There is another subcentimeter cyst superiorly adjacent to the gallbladder in the left lobe. This is also unchanged. No focal liver mass lesion is seen. The spleen is unremarkable. There is a tiny accessory splenule again noted. No adrenal lesion is seen on either side. There are three or four tiny punctate calcifications in the body and tail of the pancreas which may reflect chronic pancreatitis. No cyst or mass lesion is seen. The gallbladder is small and contracted. No mesenteric mass or adenopathy is observed. There is extensive left colonic diverticulosis without CT evidence of diverticulitis. There is an area of pericolonic stranding adjacent to the ascending colon along its posterior wall. There are diverticula in this segment of the colon and this may reflect a subclinical area of diverticulitis in the ascending colon. It is a new finding when compared with the most recent prior study of September 26, 2018. This should be correlated with clinical signs and symptoms. Followup imaging may be warranted. There are scattered stable periaortic lymph nodes. The largest of these is a left periaortic node just below the left renal vein which measures 2.3 cm in craniocaudal by 1.8 cm in medial to lateral by 0.7 cm in anteroposterior dimension. This is unchanged from multiple prior studies including February 27, 2015 prior exam. There are multiple periaortic and pericaval lymph nodes in this region however they do not appear more numerous than on 2015 prior study. No renal mass lesion is seen. No hydronephrosis is seen. Urinary bladder is unremarkable. The prostate is removed. No pelvic adenopathy is seen. No abdominal wall defect is observed. Bone window settings show arthritic changes in the hips and degenerative disc and facet changes in the lumbar spine. No lytic or sclerotic bony destructive lesion is appreciated. Impression: Stable periaortic lymph nodes. No definite adenopathy. There is a new area of pericolonic fat streaking posteriorly adjacent to the ascending colon in an area of diverticulosis. Subclinical ascending colon diverticulitis suspected. Correlation with clinical symptoms recommended. Consider followup imaging. Electronically Signed by Philipp Lara MD 01/26/2019 01:02 P
--- NOTE | 2019-01-26 13:29 | REP ---
The radionuclide bone scan: Comparison is 09/26/2015. There is bilaterally symmetric uptake in the shoulders, medial joint lines of the knees and at the bases of the great toes bilaterally. The standard uptake is compatible with osteoarthritis. It is unchanged from the comparison study. No other foci of increased uptake are identified. Impression: No evidence of metastatic disease. There is an osteoarthritic pattern of uptake. The study is performed with MDP radiolabeled with 20.7 mCi of technetium 99m. Electronically Signed by Alexander Zhang MD 01/26/2019 01:20 P
== END ==
LOC: M RAD 08:47
PROVIDERS: ATTEND Urology
DX: R97.21 Rising PSA following treatment for malignant neoplasm of prostate (principal)
CPT/HCPCS: 74177; 78306; A9503; Q9967

== ENCOUNTER → 2019-02-03 | Outpatient (CLI) | payer OTHER ==
[~2019-02-03] MED LIST changes: -ISOVUE-370 76% 100ML VIAL (Q9967) As Ordered ONE
--- NOTE | 2019-02-05 07:27 | REP ---
MRI of the left knee: The studies performed with proton density and T2 data sets in sagittal, axial and coronal projections. There is a comparison plain film study dated 10/23/2018. The study today is performed with proton density and T2 data sets in sagittal, axial and coronal projections. There is a small joint effusion. There is a small Troy's cyst. There is a bilobed ganglion medial to the fibular head. There is a small ganglion in the intercondylar notch. The patellar articular cartilage is unremarkable. There is a cleft in the trochlear articular cartilage lateral facet with subcortical marrow edema in the lateral femoral condyle. There is diffuse thinning and surface irregularity of the lateral femoral condyle and lateral trochlear articular cartilage. There is more severe surface irregularity and thinning of the medial femoral condyle and medial trochlear and medial tibial plateau articular cartilage. There is subcortical marrow edema of the medial femoral condyle posteriorly inferiorly and inferiorly. The lateral meniscus is unremarkable. There is diffuse intermediate signal throughout the anterior horn and body of the medial meniscus and the body of the medial meniscus is extruded on the coronal views. This is compatible with medial meniscal degeneration versus complex tear versus combination. The anterior posterior cruciate ligaments are unremarkable. The patellar and quadriceps tendons are unremarkable. The medial lateral collateral ligaments are unremarkable. Impression: Tricompartment osteoarthritis with associated chondromalacia as described. Troy's cyst and ganglion cysts as described. Medial meniscus degeneration and extrusion. Electronically Signed by Alexander Zhang MD 02/03/2019 11:25 A
== END ==
LOC: M RAD 09:59
PROVIDERS: ATTEND Physician Assistant
DX: M17.12 Unilateral primary osteoarthritis, left knee (principal); M71.22 Synovial cyst of popliteal space [Baker], left knee; M67.462 Ganglion, left knee; M23.304 Other meniscus derangements, unspecified medial meniscus, left knee

== ENCOUNTER → 2019-02-24 | Outpatient (CLI) | payer OTHER | LOC: M WUC 08:23 | PROVIDERS: ATTEND Urology | DX: C61 Malignant neoplasm of prostate (principal) ==

== ENCOUNTER → 2019-04-20 | Outpatient (CLI) | payer BC | LOC: M WUC 13:55 | PROVIDERS: ATTEND Urology | DX: C61 Malignant neoplasm of prostate (principal) ==

== ENCOUNTER → 2019-07-18 | Outpatient (CLI) | payer BC | LOC: M WUC 08:17 | PROVIDERS: ATTEND Urology | DX: C61 Malignant neoplasm of prostate (principal) ==

== ENCOUNTER → 2019-10-10 | Outpatient (REF) | payer BC ==
[2019-10-10 12:46] LABS: HEMATOCRIT 42.7 % (42.0-52.0); HEMOGLOBIN 13.8 g/dl (13.5-17.5); MEAN CORPUSCULAR HGB CONC 32.3 g/dl (32.0-36.5); MEAN CORPUSCULAR VOLUME 86.6 fl (80.0-96.0); PLATELET COUNT, AUTOMATED 282 10^3/uL (150-450); RED BLOOD COUNT 4.93 10^6/uL (4.30-6.10); WHITE BLOOD COUNT 6.2 10^3/uL (4.0-10.0)
[2019-10-10 13:20] LABS: ALBUMIN 3.6 GM/DL (3.2-5.2); ALT/SGPT 35 U/L (12-78); BILIRUBIN,TOTAL 0.4 MG/DL (0.2-1.0); BLOOD UREA NITROGEN 16 MG/DL (7-18); CALCIUM LEVEL 9.3 MG/DL (8.8-10.2); CARBON DIOXIDE LEVEL 31 MEQ/L (21-32); CHLORIDE LEVEL 106 MEQ/L (98-107); CHOLESTEROL LEVEL 227 MG/DL (<200); CHOLESTEROL RISK RATIO 5.536 (<5); CREATININE FOR GFR 1.03 MG/DL (0.70-1.30); GLOMERULAR FILTRATION RATE > 60.0 (>49); GLUCOSE, FASTING 102 MG/DL (70-100); HDL CHOLESTEROL 41 MG/DL (>40); NON-HDL-C 186 MG/DL; POTASSIUM SERUM 4.6 MEQ/L (3.5-5.1); SODIUM LEVEL 139 MEQ/L (136-145); TOTAL PROTEIN 6.8 GM/DL (6.4-8.2); TRIGLYCERIDES LEVEL 472 MG/DL (<150)
== END ==
LOC: M SFHCADAM 11:07
PROVIDERS: ATTEND Family Medicine
DX: E78.2 Mixed hyperlipidemia (principal); Z79.01 Long term (current) use of anticoagulants; R73.01 Impaired fasting glucose

== ENCOUNTER → 2019-10-28 | Outpatient (CLI) | payer BC | LOC: M WUC 11:06 | PROVIDERS: ATTEND Urology | DX: C61 Malignant neoplasm of prostate (principal); R97.21 Rising PSA following treatment for malignant neoplasm of prostate ==

== ENCOUNTER → 2020-01-24 | Outpatient (CLI) | payer BC ==
[~2020-01-24] MED LIST changes: -AMIO200T PO; +AMIO200T3 PO
== END ==
LOC: M WUC 08:16
PROVIDERS: ATTEND Urology
DX: C61 Malignant neoplasm of prostate (principal)

== ENCOUNTER → 2020-03-23 | Outpatient (CLI) | payer BC ==
[2020-03-23 18:24] LABS: PROSTATIC SPECIFIC AG MONITOR 0.28 NG/ML (< 4.00)
== END ==
LOC: M WUC 08:25
PROVIDERS: ATTEND Urology
DX: R97.21 Rising PSA following treatment for malignant neoplasm of prostate (principal); C61 Malignant neoplasm of prostate

== ENCOUNTER → 2020-07-14 | Outpatient (CLI) | payer BC | LOC: M WUC 10:31 | PROVIDERS: ATTEND Urology | DX: C61 Malignant neoplasm of prostate (principal) ==

== ENCOUNTER → 2020-09-13 | Outpatient (CLI) | payer BC | LOC: M LAB 09:39 | PROVIDERS: ATTEND Urology | DX: C61 Malignant neoplasm of prostate (principal) ==

== ENCOUNTER 2020-09-27 15:24 | Observation (INO) | payer BC ==
[~2020-09-27] VITALS: Ht 177.8 cm; Wt 119.3 kg
[2020-09-27] VITALS (7 sets, daily range): BP systolic 138; BP diastolic 85; O2SAT 95–98
[2020-09-27] MEDS ORDERED: ELIQ5TAB PO (15:48)
[2020-09-27] MEDS ORDERED: ATOR1TAB21 (15:48)
[2020-09-27] MEDS ORDERED: METO1TAB33 PO (15:48)
[2020-09-27] MEDS ORDERED: LISI40TA4 PO (15:48)
[2020-09-27] MEDS ORDERED: METOPROLOL 5 MG/5 ML VIAL As Ordered ONE (16:08)
[2020-09-27] MEDS: METOPROLOL 5 MG/5 ML VIAL IV SCH ×3 (16:32→16:44)
[2020-09-27 16:34] LABS: BASO % 0.3 % (0.0-1.0); EOS # 0.1 10^3/uL (0.0-0.5); EOS % 0.6 % (0.0-3.0); HEMATOCRIT 42.5 % (42.0-52.0); HEMOGLOBIN 13.8 g/dl (13.5-17.5); LYMPH # 0.5 10^3/uL (1.5-5.0); LYMPH % 5.5 % (24.0-44.0); MEAN CORPUSCULAR HEMOGLOBIN 27.9 pg (27.0-33.0); MEAN CORPUSCULAR HGB CONC 32.5 g/dl (32.0-36.5); MEAN CORPUSCULAR VOLUME 85.9 fl (80.0-96.0); MONO # 0.8 10^3/uL (0.0-0.8); MONO % 9.3 % (2.0-8.0); NEUTROPHILS # 7.4 10^3/uL (1.5-8.5); NEUTROPHILS % 83.8 % (36.0-66.0); PLATELET COUNT, AUTOMATED 208 10^3/uL (150-450); RED BLOOD COUNT 4.95 10^6/uL (4.30-6.10); WHITE BLOOD COUNT 8.8 10^3/uL (4.0-10.0)
--- NOTE | 2020-09-27 16:46 | REP ---
INDICATION: tachycardia. COMPARISON: PA and lateral chest dated 11/10/2017. TECHNIQUE: Portable AP chest with the patient sitting.. FINDINGS: The lung justice are clear. Cardiac size is normal. The javier, mediastinum and skeletal structures are unremarkable. The left costophrenic angle is excluded at the film margin. IMPRESSION: Essentially negative portable chest <Electronically signed by Alexander Zhang > 09/27/20 [id number]
[2020-09-27 16:47] LABS: INR 1.08; PROTHROMBIN TIME 14.3 SECONDS (12.5-14.3)
[2020-09-27 16:48] LABS: PARTIAL THROMBOPLASTIN TIME 30.6 SECONDS (24.2-38.5)
[2020-09-27 16:57] LABS: ALBUMIN 3.6 GM/DL (3.2-5.2); ALT/SGPT 46 U/L (12-78); BILIRUBIN,DIRECT 0.2 MG/DL (0.0-0.2); BILIRUBIN,TOTAL 0.6 MG/DL (0.2-1.0); BLOOD UREA NITROGEN 19 MG/DL (7-18); CALCIUM LEVEL 8.7 MG/DL (8.8-10.2); CARBON DIOXIDE LEVEL 26 MEQ/L (21-32); CHLORIDE LEVEL 108 MEQ/L (98-107); CK-MB VALUE MASS 1.7 NG/ML (<3.6); CPK CREATINE PHOSPHOKINASE 100 U/L (39-308); CREATININE FOR GFR 0.89 MG/DL (0.70-1.30); FREE T4 1.02 NG/DL (0.76-1.46); GLOMERULAR FILTRATION RATE > 60.0 (>49); GLUCOSE, FASTING 118 MG/DL (70-100); LIPASE 100 U/L (73-393); NT-PRO BNP 2246 PG/ML (<125); POTASSIUM SERUM 4.4 MEQ/L (3.5-5.1); SODIUM LEVEL 140 MEQ/L (136-145); THYROID STIMULATING HORMONE 0.582 uIU/ML (0.358-3.740); TOTAL PROTEIN 6.2 GM/DL (6.4-8.2); TROPONIN I 0.04 NG/ML (< 0.10)
[2020-09-27] MEDS ORDERED: METOPROLOL TART 25 MG TABLET PO ONE (17:05)
[2020-09-27] MEDS ORDERED: METOPROLOL TART 25 MG TABLET As Ordered ONE (17:10)
[2020-09-27 17:20] LABS: RSV AMPLIFICATION NEGATIVE (NEGATIVE)
[2020-09-27] MEDS ORDERED: DIGOXIN INJ 0.5 MG/2 ML AMP (J1160) IV ONE (18:30)
[2020-09-27] MEDS ORDERED: ATOR1TAB19 PO (18:51)
[2020-09-27] MEDS ORDERED: MAALOX 30 ML SUSP *UDC PO PRN (19:10)
[2020-09-27] MEDS ORDERED: MOM 30ML SUSPENSION UDC PO PRN (19:10)
[2020-09-27] MEDS ORDERED: MULTTAB61 PO (19:18)
--- NOTE | 2020-09-27 20:35 | HPEPDOC ---
[facility] Medical History & Physical Date of Admission Sep 27, 2020 Date of Service: Sep 27, 2020 Attending Physician: HORACIO MACIAS MD History and Physical CHIEF COMPLAINT: [This is a 64 y/o male who reports to the ED after urgent care found him to be in a-fib with RVR.] HISTORY OF PRESENT ILLNESS: [This is a 64 y/o male who has a pmh of a-fib, CHF, HTN, dyslipidemia, obesity, COLE, and prostate cancer s/p robot assisted prostatectomy. Patient states that he reported to urgent care because he has bee n feeling fatigued, some general malaise, and has had a wet cough that has been increasing over the past week or so. Patient states that he has also noticed he has had some increased SOB on exertion, stating that he noticed he's had a tougher time going up the stairs at work. Patient has a long history of a-fib, but states he never knows when he is in this rhythm. Patient states that he has no chest pain, chest tightness, dizziness, lightheadedness, syncope, peripheral edema, nausea, vomiting. Patient follows with Dr. Diaz for cardiology management but has not seen him in some time. Last echo was 3 years ago per pt.] PAST MEDICAL HISTORY: 1. See HPI PAST SURGICAL HISTORY: 1. [Hernia repair]. 2. [Prostatectomy]. 3. [Unspecified shoulder surgery]. SOCIAL HISTORY: Marital status: []. Resides in: [home with ] Employment: [[employer] worker] Tobacco use:[no] ETOH: [2 beers daily] Illicit drug use: [no] ALLERGIES: Please see below. REVIEW OF SYSTEMS: CONSTITUTIONAL: [See HPI]. HEENT: [See HPI]. CARDIOVASCULAR: [See HPI]. RESPIRATORY: [See HPI]. GASTROINTESTINAL: [See HPI]. GENITOURINARY: [Denies dysuria]. SKIN: [Denies rash]. MUSCULOSKELETAL: [Denies joint pain]. NEUROLOGICAL: [See HPI]. HOME MEDICATIONS: Please see below. PHYSICAL EXAMINATION: VITAL SIGNS: See below GENERAL APPEARANCE: [This is a well nourished 64 y/o white male. He is resting comfortably in bed and in no distress]. HEENT: [No mass or lesion. EOMI. No scleral icterus or conjunctival erythema. Nares patient. Oral mucosa moist without erythema.]. CARDIOVASCULAR: [Tachy rate, irregularly irregular rhythm.]. LUNGS: [Scattered inspiratory wheezing]. ABDOMEN: [Soft, non-tender]. MUSCULOSKELETAL: [No joint deformity]. EXTREMITIES: [Warm, dry. No peripheral edema, clubbing, cyanosis noted.]. NEUROLOGICAL: [A+Ox3. Speech clear. no focal deficits.]. PSYCHIATRIC: [mood and affect appear appropriate]. LABORATORY DATA: See below. IMAGING: [CXR: FINDINGS: The lung justice are clear. Cardiac size is normal. The javier, mediastinum and skeletal structures are unremarkable. The left costophrenic angle is excluded at the film margin. IMPRESSION: Essentially negative portable chest] MICROBIOLOGY: Please see below. ASSESSMENT/PLAN: 1. [A-fib with RVR - Patient has already received his daily doses of at home metoprolol equaling 200mg po as well as 3 doses of 5mg metoprolol iv and a loading dose of .25mg digoxin iv. Due to underlying HFrEF and the patient having already received close to maximum dose of beta blockers, we will continue with digoxin 0.125mg iv for control of tachyarrhythmia. - Patient is already on at home eliquis, we will continue - Patient seems to be a difficult cardioversion, as chart review shows multiple attempts with some failures in the past, so we will keep a close eye. - Patient has seen dr. diaz in the past, so consult can be considered by day team - echo ordered to r/o further structural heart dz - patient admitted on tele 2. URI - patient tested positive on respiratory panel for non-COVID coronavirus, may explain patient's cough, malaise - no signs of pneumonia on chest x-ray - URI may be precipitating factor for rapid ventricular response in this patient today - tylenol prn has been ordered if patient wants it 3. CHF - Patient's BNP is elevated at over 2200. However, I do not believe this patient is in acute decompensated CHF at this time. Patient has negative chest x-ray, no peripheral edema or other signs fo fluid overload, no respiratory complains besides mild cough that is more likely due to URI, and no significant decrease in physical function. We will monitor patient's symptoms and vitals including pu lse ox while he was in the hospital. - Repeat troponin series have also been ordered - Repeat echo will give us a better idea of degree of structural disease 4. COLE - patient may use at home cpap or our cpap at 7cm at night - continuous pulse ox ordered 5. HTN - continue lisinopril, at home metoprolol 6. prostate ca s/p prostatectomy - follow up with pcp 7. hyperlipidemia - continue atorvastatin 8. Obesity - per pcp records, patient has prediabetes. as well as with a bmi of 39, day team can consider checking an A1C for diabetes screening. - patient can follow up with pcp for further discussion of lifestyle modifications 9. dvt prophylaxis - cesilia hose ordered, continue at home eliquis]. Vital Signs Vital Signs Date Time Temp Pulse Resp B/P (MAP) Pulse Ox O2 Delivery O2 Flow Rate FiO2 09/27/20 19:30 99.4 133 16 144/101 (115) 97 09/27/20 18:45 Room Air Laboratory Data Labs 24H Laboratory Tests 2 09/27/20 16:12: Immature Granulocyte % (Auto) 0.5, Neutrophils (%) (Auto) 83.8H, Lymphocytes (%) (Auto) 5.5L, Monocytes (%) (Auto) 9.3H, Eosinophils (%) (Auto) 0.6, Basophils (%) (Auto) 0.3, Neutrophils # (Auto) 7.4, Lymphocytes # (Auto) 0.5L, Monocytes # (Auto) 0.8, Eosinophils # (Auto) 0.1, Basophils # (Auto) 0.0, Nucleated Red Blood Cells % (auto) 0.0, Prothrombin Time 14.3H, Prothromb Time International Ratio 1.08, Activated Partial Thromboplast Time 30.6, Anion Gap 6L, Glomerular Filtration Rate > 60.0, Calcium Level 8.7L, Total Bilirubin 0.6, Direct Bilirubin 0.2, Aspartate Amino Transf (AST/SGOT) 20, Alanine Aminotransferase (ALT/SGPT) 46, Alkaline Phosphatase 72, Total Creatine Kinase 100, Creatine Kinase MB 1.7, Creatine Kinase MB Relative Index 1.70, Troponin I 0.04, EB-Rvj-[id number]-Type Natriuretic Peptide 2246H, Total Protein 6.2L, Albumin 3.6, Albumin/Globulin Ratio 1.4, Lipase 100, Thyroid Stimulating Hormone (TSH) 0.582, Free Thyroxine 1.02 09/27/20 16:33: Urine Color YELLOW, Urine Appearance CLEAR, Urine pH 5.0, Urine Specific [place] 1.020, Urine Protein NEGATIVE, Urine Glucose (UA) NEGATIVE, Urine Ketones NEGATIVE, Urine Blood NEGATIVE, Urine Nitrite NEGATIVE, Urine Bilirubin NEGATIVE, Urine Urobilinogen 0.2, Urine Leukocyte Esterase NEGATIVE, Urine WBC (Auto) 0, Urine RBC (Auto) 2, Urine Hyaline Casts (Auto) 0, Urine Bacteria (Auto) NEGATIVE, Urine Squamous Epithelial Cells 0, Urine Mucus (Auto) SMALL, Urine Sperm (Auto) , Coronavirus (COVID-19)(PCR) NEGATIVE, Influenza Type A (RT- PCR) NEGATIVE, Influenza Type B (RT-PCR) NEGATIVE, Respiratory Syncytial Virus (PCR) NEGATIVE CBC/BMP Laboratory Tests 09/27/20 16:12 Microbiology Microbiology 09/27/20 Blood Culture, Received Pending 09/27/20 Respiratory Virus Panel (PCR) (MARIAM) - Final, Complete Coronavirus Oc43 09/27/20 Blood Culture, Received Pending Home Medications Scheduled Apixaban (Eliquis) 5 Mg Tablet, 5 MG PO BID Atorvastatin Calcium (Atorvastatin Calcium) 10 Mg Tablet, 20 MG PO QHS Lisinopril (Lisinopril) 40 Mg Tablet, 40 MG PO DAILY Metoprolol Succinate (Metoprolol Succinate) 100 Mg Tab.er.24h, 100 MG PO BID Multivitamin (Multivitamins) 1 Each Tablet, 1 TAB PO DAILY Allergies Coded Allergies: No Known Allergies (Unverified , 12/06/17) A-FIB/CHADSVASC A-FIB History Current/History of A-Fib/PAF?: Yes Current PO Anticoag Therapy: Yes Attending Note Attending Note TIME OF SERVICE 920PM is a 64 yr old M w a hx of long standing persistent A fib (s/p ablation x2 on rate control meds and DOAC), HFrEF (35-40%), HTN, DLP, COLE, hx of prostate CA, Pre-DM and class 2 obesity who presented to an urgent care clinic w c/o URI symptoms and was sent to the ER for management of rapid A fib possibly triggered by COVID Oc43 infection . He will be admitted for management of the later. Clinically he he is euvolemic. Plan: telemetry / will increase metoprolol XL from 100mg daily to 200mg daily / tonight will give additional doses of digoxin if needed to achieve a HR < 110 based on the results of the RACE trail / f/u trop, Mg and Echo (last echo was in 2018) / f/u A1C / he can f/u with his PCP for a senior sales consultant consult, to discuss exercise and possibly starting Saxenda, which is indicated in patients with a BMI >27 with co-existing DM, HTN or dyslipidemia to help with weight control as an adjunct to exercise Rest per MORRIS Pierre's H&P EUGENIA PIERRE Sep 27, 2020 20:35 HORACIO MACIAS MD Sep 27, 2020 23:02
[2020-09-27] MEDS: DOCUSATE SODIUM 100MG CAPSULE PO SCH (21:00)
[2020-09-27] MEDS ORDERED: METOPROLOL SUCC (TopROL XL) 100MG *XL* TAB PO SCH (21:00)
[2020-09-27 21:07] LABS: DIGOXIN LEVEL 0.8 NG/ML (0.5-2.0); TROPONIN I 0.04 NG/ML (< 0.10)
[2020-09-27] MEDS: APIXABAN 5 MG TAB (ELIQUIS) PO SCH (21:40)
[2020-09-27] MEDS: ATORVASTATIN 10 MG TAB PO SCH (21:41)
[2020-09-27] MEDS ORDERED: DIGOXIN INJ 0.5 MG/2 ML AMP (J1160) IV PRN (23:05)
[2020-09-27] MEDS: ACETAMINOPHEN TAB 650MG DOSE (2X325MG) PO PRN (23:34)
[2020-09-28] VITALS (16 sets, daily range): BP systolic 114–152; BP diastolic 58–97; O2SAT 90–98
[2020-09-28 04:33] LABS: HEMATOCRIT 41.1 % (42.0-52.0); HEMOGLOBIN 13.4 g/dl (13.5-17.5); MEAN CORPUSCULAR HEMOGLOBIN 28.2 pg (27.0-33.0); MEAN CORPUSCULAR HGB CONC 32.6 g/dl (32.0-36.5); MEAN CORPUSCULAR VOLUME 86.3 fl (80.0-96.0); PLATELET COUNT, AUTOMATED 188 10^3/uL (150-450); RED BLOOD COUNT 4.76 10^6/uL (4.30-6.10); WHITE BLOOD COUNT 5.4 10^3/uL (4.0-10.0)
[2020-09-28 04:46] LABS: HEMOGLOBIN A1c 5.8 %
[2020-09-28 04:52] LABS: BLOOD UREA NITROGEN 14 MG/DL (7-18); CALCIUM LEVEL 8.1 MG/DL (8.8-10.2); CARBON DIOXIDE LEVEL 27 MEQ/L (21-32); CHLORIDE LEVEL 109 MEQ/L (98-107); CREATININE FOR GFR 0.74 MG/DL (0.70-1.30); GLOMERULAR FILTRATION RATE > 60.0 (>49); GLUCOSE, FASTING 96 MG/DL (70-100); MAGNESIUM LEVEL 2.2 MG/DL (1.8-2.4); POTASSIUM SERUM 4.4 MEQ/L (3.5-5.1); SODIUM LEVEL 141 MEQ/L (136-145); TROPONIN I 0.04 NG/ML (< 0.10)
--- NOTE | 2020-09-28 08:19 | ECGEPIP ---
[facility] - ED Test Date: 2020-09-27 Pat Name: CLEVELAND HUDDLESTON Department: Room: - Gender: Male Spring Layer: BRENT : 1955 Requested By: JT Ramirez Order Number: [id number] Reading MD: Teresa Willett Measurements Intervals [place] Rate: 173 P: MA: QRS: 70 QRSD: 86 T: -30 QT: 260 QTc: 441 Interpretive Statements Atrial fibrillation with rapid ventricular response Septal infarct , age undetermined NSTTW abnormalities prior sinus rhythm with first degree av block 12/13/17 Electronically Signed on 09-28-2020 8:19:05 EDT by Teresa Willett
[2020-09-28] MEDS ORDERED: DIGOXIN INJ 0.5 MG/2 ML AMP (J1160) IV SCH (09:00)
[2020-09-28] MEDS: APIXABAN 5 MG TAB (ELIQUIS) PO SCH ×2 (09:18→21:00)
[2020-09-28] MEDS: DOCUSATE SODIUM 100MG CAPSULE PO SCH ×2 (09:18→21:00)
[2020-09-28] MEDS: lisinopriL 40 MG TAB PO SCH (09:19)
[2020-09-28] MEDS: METOPROLOL SUCC (TopROL XL) 100MG *XL* TAB PO SCH (09:19)
--- NOTE | 2020-09-28 13:25 | IPN ---
PROGRESS NOTE DATE: 09/28/2020 SUBJECTIVE: Linden was seen in the progressive care unit (PCU). He has an upper respiratory infection for non-COVID coronavirus which, I think, tripped him into atrial fibrillation with rapid ventricular response. His rate is still fast. He is tolerating this without shortness of breath or chest pain. He is followed by [facility] as an outpatient. His cough is nonpurulent. His is having no fever. He does have a history of obstructive sleep apnea (COLE) as well as prostate cancer. PHYSICAL EXAMINATION: VITAL SIGNS: Afebrile. Blood pressure 152/84, pulse between 100-126, 98% oxygen saturation on room air. GENERAL APPEARANCE: Alert, conversant. No distress. HEENT: No jugular venous distention (JVD). HEART: Tachycardic. Irregular. ABDOMEN: Soft, nontender. No masses. LUNGS: Clear. EXTREMITIES: No peripheral edema. LABORATORY DATA: CBC unremarkable. Electrolytes unremarkable. Hemoglobin A1C is 5.8. I am not sure why that was ordered. Magnesium is normal. Troponin negative times three. IMPRESSION: 1. Atrial fibrillation with rapid ventricular response. Consult cardiology. Patient is known to [facility] and I believe Dr. Lee is lubrication servicer for that group today. 2. Exacerbation of chronic obstructive pulmonary disease (COPD) secondary to coronavirus. Lungs are clear. I do not think he needs any steroids. 3. Chronic atrial fibrillation. He is on Eliquis, metoprolol and digoxin. 5. Hyperlipidemia. Continue atorvastatin. 6. Obstructive sleep apnea (COLE). Continue continuous positive airway pressure (CPAP).
[2020-09-28] MEDS ORDERED: DIGOXIN INJ 0.5 MG/2 ML AMP (J1160) IV ONE ×2 (14:00→18:15)
[2020-09-28] MEDS ORDERED: AMIODARONE HCL 150 MG in IV 1 EA IV STA ×2 (17:51→21:31)
[2020-09-28] MEDS: ATORVASTATIN 10 MG TAB PO SCH (21:00)
[2020-09-28] MEDS: ACETAMINOPHEN TAB 650MG DOSE (2X325MG) PO PRN (21:03)
[2020-09-28] MEDS ORDERED: FUROSEMIDE 20MG/2ML VIAL (J1940) IV ONE (23:45)
[2020-09-29] VITALS (12 sets, daily range): BP systolic 123–155; BP diastolic 75–96; O2SAT 92–98
[2020-09-29 05:37] LABS: HEMATOCRIT 45.6 % (42.0-52.0); HEMOGLOBIN 14.9 g/dl (13.5-17.5); MEAN CORPUSCULAR HEMOGLOBIN 27.7 pg (27.0-33.0); MEAN CORPUSCULAR HGB CONC 32.7 g/dl (32.0-36.5); MEAN CORPUSCULAR VOLUME 84.9 fl (80.0-96.0); PLATELET COUNT, AUTOMATED 191 10^3/uL (150-450); RED BLOOD COUNT 5.37 10^6/uL (4.30-6.10)
[2020-09-29 06:07] LABS: BLOOD UREA NITROGEN 14 MG/DL (7-18); CARBON DIOXIDE LEVEL 28 MEQ/L (21-32); CHLORIDE LEVEL 105 MEQ/L (98-107); CREATININE FOR GFR 0.82 MG/DL (0.70-1.30); GLOMERULAR FILTRATION RATE > 60.0 (>49); GLUCOSE, FASTING 99 MG/DL (70-100); MAGNESIUM LEVEL 2.2 MG/DL (1.8-2.4); POTASSIUM SERUM 3.8 MEQ/L (3.5-5.1); SODIUM LEVEL 139 MEQ/L (136-145)
[2020-09-29] MEDS: METOPROLOL SUCC (TopROL XL) 100MG *XL* TAB PO SCH (08:33)
[2020-09-29] MEDS: DOCUSATE SODIUM 100MG CAPSULE PO SCH ×2 (08:33→20:47)
[2020-09-29] MEDS: lisinopriL 40 MG TAB PO SCH (08:33)
[2020-09-29] MEDS: APIXABAN 5 MG TAB (ELIQUIS) PO SCH ×2 (08:33→20:47)
--- NOTE | 2020-09-29 09:03 | IPN ---
PROGRESS NOTE DATE: 09/29/2020 SUBJECTIVE: Mr. Mart tells me that he is feeling much better since he came to the hospital. He has no awareness of atrial fibrillation. Unfortunately, telemetry monitoring continues to reveal poor control. During nighttime, his heart rate was around 100 beats per minute but once he woke up and sat in the chair, his heart rate is up into the 120s and sometimes 130s. He denies any chest pain, shortness of breath, sensation of palpitations. OBJECTIVE: Vital Signs: Blood pressure 123/96, heart rate about 110. He is afebrile. Saturation 95% on four liters of oxygen. Weight was recorded at 119.5 kg. He is alert and oriented, and appropriate. His jugular venous pressure (JVP) is not high. Lungs are clear with good air movement. Heart exam reveals irregularly irregular rhythm without gallop, rub or murmur. Abdomen is soft, nontender. Extremities are free of edema. LABORATORY: Normal CBC. Normal basic metabolic panel. Normal cardiac enzymes. Digoxin level was tested as 0.8 two days ago. ASSESSMENT AND PLAN: Mr. Mart is a 64-year-old man who has a history of obstructive sleep apnea, obesity and hypertension. He has a history of atrial fibrillation, underwent ablation several years ago with earlier relapse and need for cardioversion. He eventually maintained sinus rhythm on his chronic Toprol XL 200 mg daily and chronic anticoagulation. He currently relapsed in the setting of upper respiratory infection. He is feeling much better from an infective perspective but remains in atrial fibrillation in spite of setting two doses of IV amiodarone last night. He also received a total 0.5 mg of Lasix over the last couple days. Considering the experience from past, he thinks slightly that he will need cardioversion to convert into sinus rhythm and we will tentatively arrange this for this afternoon. Otherwise, in the interim I will continue his chronic medications. Hopefully, if the procedure is successful, he will be able to go home tomorrow morning.
--- NOTE | 2020-09-29 09:28 | CR ---
CONSULTATION DATE: 09/28/2020 REASON FOR CONSULTATION: Atrial fibrillation, heart failure. HISTORY OF PRESENT ILLNESS: 64-year-old male was sent to the emergency room by a local urgent care center where he presented with progressive shortness of breath, cough and he was found to be in atrial fibrillation with rapid ventricular rate. He was admitted for further management and monitoring yesterday, 09/27/2020. Cardiology consult was called. Mr. Mart has been stable from a cardiac point of view and has a history of paroxysmal atrial fibrillation that was initially diagnosed after a fall on 08/16/2017, hypertension, hyperlipidemia, heart failure, obesity and sleep apnea. He also has a history of lung cancer and prostate cancer for which he had surgery in the past. He said that lately his PSA had been going up and he has been monitored closely by urology in [facility]. The patient stated that he has been feeling short of breath for a few days, relieved at rest for about a week. 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 He also has been coughing on and off. He did state that he was vaccinated for COVID 19 and has received two doses. He drove himself back home and went to urgent care center and was found to have atrial fibrillation with a rapid ventricular rate. He was sent to the emergency room for further evaluation where he was admitted. He denies any associated chest pain, palpitations, orthopnea, syncope or near syncope. He denies any bleeding. In the emergency room, he was found to have a low grade fever. He was tested negative for SARS/COVID 19. When I saw him this afternoon, he said that he is feeling better; and according to his record, he has not been having any fever since in the hospital. He has not been coughing much. He denies any dizziness or lightheadedness, syncope or near syncope. He has no focal manifestation. He denies any bleeding. His right of way manager is Dr. Diaz and last time he was in his office was on 12/27/2019. PAST MEDICAL HISTORY: He has a past medical history as mentioned above positive for atrial fibrillation, paroxysmal in nature and for which he has had multiple mechanical cardioversions, hypertension, hyperlipidemia, obesity and sleep apnea. He also has a history of lung cancer, left for which he has had surgery, as well as prostate cancer for which he has had prostatectomy and radiotherapy and now on Lupron. There is no history of positive coronary artery disease, left ventricular systolic dysfunction, transient ischemic attack (TIA)/cerebral vascular accident (CVA), cardiomyopathy, sudden cardiac , kidney disease, thyroid disorders. He does have some underlying glucose intolerance. PAST SURGICAL HISTORY: Positive for mediastinal biopsy and resection of mediastinal mass, prostatectomy, hernia repair. FAMILY HISTORY: Unremarkable. 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 He does not smoke or abuse alcohol. ALLERGIES: He has no known drug allergies. ADVANCED DIRECTIVES: The patient is a full code. MEDICATIONS AT HOME: According to his last office visit note, he has been on Eliquis at 5 mg by mouth twice a day, Lupron, lisinopril 40 mg by mouth daily, meloxicam 7.5 mg by mouth twice a day, metoprolol succinate 100 mg by mouth twice a day, multivitamin one tablet by mouth daily, naproxen 220 mg by mouth daily as needed for pain, atorvastatin 20 mg tablet and two tablets daily, Tylenol 650 mg once or twice a day as needed. CURRENT MEDICATIONS: Lisinopril 40 mg one by mouth daily, digoxin, metoprolol succinate 200 mg by mouth daily, docusate sodium 100 mg by mouth twice a day, apixaban 5 mg by mouth twice a day, atorvastatin 20 mg by mouth daily, Tylenol 650 mg q 4 hours as needed for pain or fever magnesium oxide 30 ml daily as needed for constipation, Mylanta 30 ml by mouth daily as needed for dyspepsia. PHYSICAL EXAMINATION: The patient is alert and oriented, in no acute distress at rest and his vital signs when I saw him revealed a blood pressure of 148/91 with a pulse of 124, respirations 20 and his maximum temperature was 98.2 degrees Fahrenheit with oxygen saturation of 96% on room air. Examination of the head: Atraumatic. Neck: Supple and I could not appreciate any jugular venous distention (JVD) while sitting in his bed. Lungs: Did not reveal any wheezing. Minimal crackles at the bases. The heart examination revealed an irregularly irregular heart sound without gallops. The PMI is displaced inferiorly and laterally. There is no rub. I could not appreciate any murmurs. Abdomen is soft, obese and nontender. Extremities revealed 2+ bilateral lower leg edema. Neurological examination: Negative for focal deficit. LABORATORY DATA: Complete blood count (CBC) done today revealed WBC of 5.4, hemoglobin 13.4, hematocrit 41.1 and platelets 188,000. Basic metabolic panel (BMP) revealed a sodium of 141, potassium 4.4, chloride 109, Co2 27, BUN 14 and creatinine 0.04, glomerular filtration rate (GFR) more than 60, fasting glucose 96 and calcium 8.1, magnesium 2.2. Troponin has been negative at 0.04. Serum pro BNP on admission was 2,246. TSH was 0.58. PT on admission was 14.3 with an INR of 1.08 and a PTT of 30.6. Urinalysis was essentially normal. respiratory panel normal with a negative influenza A and B, negative RSV and negative PCR SARS-COVID 2. Blood culture has been negative. Electrocardiogram (EKG) on admission, 09/27/2020, revealed atrial fibrillation with a rapid ventricular rate of 173 per minute and nonspecific ST-T abnormalities, possible versus lead misplacement. Chest x-ray on admission, 09/27/2020, was essentially negative. IMPRESSION: 1. Atrial fibrillation with rapid ventricular rate, on maximum dose of ____ beta-sebastian, metoprolol succinate. He was given IV digoxin and I will continue to load him with digoxin. In the past, he was on amiodarone; and if he does not respond with the combination of the digoxin and the beta sebastian, we should think about restarting him on the amiodarone. He also might benefit from mechanical cardioversion at one point. He had an echocardiogram done today and that showed atrial fibrillation with rapid ventricular rate left ventricular systolic dysfunction. This may be reassessed in the future once his atrial fibrillation is under control and back in normal sinus rhythm. He has been on apixaban for prevention of thromboembolic event and . He has not reported any bleeding. 2. Hypertension, under fair control and will be monitored. 3. Hyperlipidemia on a statin, atorvastatin. 4. Obesity and sleep apnea on CPAP. 5. Heart failure, probability related to the atrial fibrillation with rapid ventricular rate. He will be started on IV fluid tonight and will repeat his BUN, creatinine and serum potassium. 6. History of prostate cancer, he is being monitored by . 7. Lung cancer, left. He has had surgery in the past for that problem. It was a pleasure to participate in the care of . Linden Mart for his underlying cardiac condition. The case was discussed briefly with his primary, who was covering today. Dr. Diaz will be seeing him tomorrow, 09/29/2020.
--- NOTE | 2020-09-29 09:56 | ECHO ---
DATE OF PROCEDURE: 09/28/2020 Age: 64 Gender: Male REFERRING PHYSICIAN: Kemi Ohara MD PATIENT LOCATION: Room 3225 REASON FOR STUDY: Atrial fibrillation. 2D MEASUREMENTS: IVS 1.2 cm LV 5.5 cm LVPW 1.2 cm LA 4.9 cm Aorta 3.7 cm IVC 2.1 cm DOPPLER MEASUREMENT Peak velocity across the aortic valve 1.3 m/s Peak velocity across the LVOT 1.1 m/s Mitral E 0.83 Maximum tricuspid valve velocity 2.3 m/s 2D COMMENTS: 1. Mildly enlarged left ventricle with normal left ventricular wall thickness, and mild global hypokinesis. The estimated left ventricular systolic ejection fraction is 45% to 50%. 2. Mildly enlarged left atrium. The right atrium and the right ventricle also appear to be mildly enlarged. 3. Borderline enlarged aortic root at 3.7 cm. 4. Trace pericardial effusion noted, no evidence of cardiac tamponade. 5. Mildly calcified aortic valve with normal leaflet excursion. Normal mitral valve and tricuspid valve. The pulmonic valve and proximal pulmonary artery branches were not well visualized. 6. The inferior vena cava was dilated, central venous pressure might be elevated. Doppler detects mild mitral regurgitation and mild tricuspid regurgitation. The calculated pulmonary artery systolic pressure varies between 30 to 40 mmHg. Assessment of the left ventricular diastolic function was limited in view of the underlying atrial fibrillation. IMPRESSION: 1. Mildly depressed global left ventricular systolic function with borderline enlarged left ventricle and mild global hypokinesis. Assessment of the left ventricular diastolic function was limited in view of the underlying arrhythmias. 2. Aortic valve sclerosis without stenosis or aortic regurgitation. 3. Mildly enlarged left atrium with mild mitral regurgitation. 4. Mild tricuspid regurgitation with mild pulmonary hypertension. The right heart chambers appear to be enlarged, could not rule out more severe pulmonary hypertension. 5. Trace pericardial effusion noted. No evidence of cardiac tamponade. 6. The inferior vena cava was dilated, central venous pressure is probably elevated. MTDD
--- NOTE | 2020-09-29 10:09 | IPN ---
PROGRESS NOTE DATE: 09/29/2020 SUBJECTIVE: Linden is seen in the PCU. Dr. Diaz has seen him and plans a cardioversion today. Heart rate looked like it had come under control when I was rounding this morning, heart rates were in the 50s and 70s, now it looks like they are back up to the 140s an hour later. OBJECTIVE: VITAL SIGNS: Blood pressure 124/96, pulse is 140, 95% O2 saturation. GENERAL APPEARANCE: When I saw him he was alert, conversant, in no distress, resting comfortably. HEENT: Unremarkable. LUNGS: Clear. HEART: Irregular rate and rhythm. ABDOMEN: Soft, nontender. EXTREMITIES: No peripheral edema. LABORATORY DATA: CBC normal. Electrolytes are unremarkable. Potassium is 3.8. IMPRESSION: 1. Atrial fibrillation, recurrent. Patient has had two ablation procedures. He is planned for cardioversion today. He is still in atrial fibrillation despite two doses of IV amiodarone, 0.5 mg of Digoxin as well as metoprolol XL 200 mg daily. He is already anticoagulated. 2. Exacerbation of COPD secondary to non-COVID coronavirus, recently well, lungs are clear, no issues. 3. Hyperlipidemia, continue atorvastatin. 4. COLE, continue outpatient CPAP. 5. Anticipate discharge tomorrow if remains in sinus rhythm.
[2020-09-29] MEDS ORDERED: LIDOCAINE 2% 100MG/5ML SDV (FOR ANES.) As Ordered ONE (16:48)
[2020-09-29] MEDS ORDERED: propofoL 200 MG/20 ML VIAL As Ordered ONE (16:48)
[2020-09-29] MEDS ORDERED: LR 1,000 ML IV SCH (18:30)
--- NOTE | 2020-09-29 19:24 | ECGEPIP ---
[facility] Test Date: 2020-09-29 Pat Name: CLEVELAND HUDDLESTON Department: Room: [place] [address] Gender: Male Adult Neurologist: travis : 1955 Requested By: Ned Diaz Order Number: [id number] Reading MD: Jose J Avila Measurements Intervals [place] Rate: 73 P: 55 [place]: 202 QRS: 51 QRSD: 92 T: 35 QT: 418 QTc: 460 Interpretive Statements Normal sinus rhythm Low QRS complex voltage in the limb leads Incomplete right bundle branch block Septal infarct , age undetermined Nonspecific T wave abnormality Compared to prior tracing of 09/27/2020, atrial fibrillation has resolved Electronically Signed on 09-29-2020 19:23:57 EDT by Jose J Avila
[2020-09-29] MEDS: ATORVASTATIN 10 MG TAB PO SCH (20:47)
[2020-09-30] VITALS: BP 132/86
[2020-09-30 04:00] VITALS: BP 123/65
[2020-09-30 04:24] LABS: HEMATOCRIT 45.1 % (42.0-52.0); HEMOGLOBIN 14.6 g/dl (13.5-17.5); MEAN CORPUSCULAR HEMOGLOBIN 27.9 pg (27.0-33.0); MEAN CORPUSCULAR HGB CONC 32.4 g/dl (32.0-36.5); MEAN CORPUSCULAR VOLUME 86.2 fl (80.0-96.0); PLATELET COUNT, AUTOMATED 212 10^3/uL (150-450); RED BLOOD COUNT 5.23 10^6/uL (4.30-6.10); WHITE BLOOD COUNT 5.9 10^3/uL (4.0-10.0)
[2020-09-30 04:47] LABS: BLOOD UREA NITROGEN 18 MG/DL (7-18); CALCIUM LEVEL 8.7 MG/DL (8.8-10.2); CARBON DIOXIDE LEVEL 28 MEQ/L (21-32); CHLORIDE LEVEL 105 MEQ/L (98-107); CREATININE FOR GFR 0.77 MG/DL (0.70-1.30); GLOMERULAR FILTRATION RATE > 60.0 (>49); GLUCOSE, FASTING 102 MG/DL (70-100); MAGNESIUM LEVEL 2.1 MG/DL (1.8-2.4); POTASSIUM SERUM 4.3 MEQ/L (3.5-5.1); SODIUM LEVEL 139 MEQ/L (136-145)
[2020-09-30 08:00] VITALS: BP 127/81
[2020-09-30] MEDS: lisinopriL 40 MG TAB PO SCH (08:54)
[2020-09-30] MEDS: APIXABAN 5 MG TAB (ELIQUIS) PO SCH (08:54)
[2020-09-30 08:55] VITALS: BP 127/81
[2020-09-30] MEDS: DOCUSATE SODIUM 100MG CAPSULE PO SCH (08:55)
[2020-09-30] MEDS: METOPROLOL SUCC (TopROL XL) 100MG *XL* TAB PO SCH (08:55)
[2020-09-30] MEDS ORDERED: METO1TAB33 PO (09:03)
--- NOTE | 2020-09-30 09:37 | RO ---
OPERATIVE NOTE DATE OF OPERATION: 09/29/2020 PREOPERATIVE DIAGNOSIS: POSTOPERATIVE DIAGNOSIS: PROCEDURE: Cardioversion. SURGEON: Ned Diaz MD MOLDING AND TRIM INSTALLER: ANESTHESIOLOGISTS: Dr. Xavier and Jin Kline CRNA ANESTHESIA: BRIEF HISTORY: Mr. Mart is a 64-year-old man who has history of atrial fibrillation several years ago, who has been in sinus rhythm until presentation to [facility] with symptoms of upper respiratory infection. He was again found to be in atrial fibrillation with RVR. He received several doses of Digoxin on top of chronic Metoprolol and also received two doses of Amiodarone that failed to restore sinus rhythm. Because he subjectively feels much improved I thought it was appropriate to attempt DC cardioversion in order to restore sinus mechanism. I saw the patient the morning of the procedure and did sign appropriate consent. DESCRIPTION OF PROCEDURE: The procedure was performed in the recovery room. The patient presented in fasting condition. After appropriate time out was taken and all the monitors were applied, he was sedated by anesthesiology. When appropriate level of sedation was accomplished, he was cardioverted with 200 joules of energy in defibrillator patches applied in usual position. The administration of first shock failed to restore sinus mechanism and consequently second shock with 300 joules of energy was applied which led to mandaen of sinus mechanism. There were no immediate complications and 12--lead ECG is pending at the time of my dictation. The patient will resume his chronic medications.
--- NOTE | 2020-09-30 11:39 | DS.PDOC ---
Discharge Summary General Date of Admission Sep 27, 2020 at 15:25 Date of Discharge 09/30/2020 Discharge Summary PROCEDURES PERFORMED DURING STAY: 09/29/[address] Peg Diaz ADMITTING DIAGNOSES / DISCHARGE DIAGNOSES: A. fib with RVR URI 2/2 Coronavirus (NOT COVID19) Chronic Systolic CHF COLE HTN Prostate ca s/p prostatectomy DLP Obesity DVT prophylaxis COMPLICATIONS/CHIEF COMPLAINT: Atrial Fibrillation With Rvr. HISTORY OF PRESENT ILLNESS: Patient is a 64-year-old male with a PMHx of A. fib, CHF, HTN, DLP, Obestiy, COLE, Prostate CA s/p prostatectomy who presented to the emergency room with complaints of palpitations.. She was admitted to the hospital service for further evaluation and treatment. Cardiology was called on consultation and patient was ultimately taken for cardioversion on 09/29. Patient was seen and examined at the bedside. Currently sitting up in a chair. Denies any chest pain, short of breath, palpitations, nausea, vomiting, abdominal pain, diarrhea, or discomfort with urination. HOSPITAL COURSE: A. fib with RVR - Currently patient is asymptomatic. Denies any chest pain or palpitations - Heart rate is well controlled - Status post cardioversion - Continue with rate control with metoprolol - Continue with full anticoagulation with Eliquis - Cardiology on consultation; will have outpatient follow-up with cardiology next 7 days URI 2/2 Coronavirus (NOT COVID19) - c/w supportive care Chronic Systolic CHF - ECHO: EF of 45-50% - Patient appears well compensated without any evidence of fluid overload COLE - Allow home CPAP use while inpatient HTN - BP well controlled - c/w Lisinopril and Metoprolol Prostate ca s/p prostatectomy - Outpatient follow-up with urology DLP - c/w Atorvastatin Obesity - BMI of 37.7 - Complicating medical care DVT prophylaxis - c/w full anticoagulation with Eliquis DISCHARGE MEDICATIONS: Please see below. ALLERGIES: Please see below. PHYSICAL EXAMINATION ON DISCHARGE: Vitals (See below) General: Sitting up in chair and appears comfortable, AAOx3 HEENT: NC, AT CVS: +S1S2 Lungs: Fair air entry b/l, no wheezing, rales or rhonchi Abdomen: Soft, ND, NT Extremities: - Edema, - Calf tenderness LABORATORY DATA: Please see below. IMAGING: CXR 09/27: Essentially negative portable chest ACTIVITY: [As tolerated]. DISCHARGE PLAN: Follow-up with primary care provider within the next 7 days. Follow up with cardiology within the next 7 days Remain compliant with treatment plan and medications Return to the ER if you experience any problems DISPOSITION: Home, Self-Care. DISCHARGE CONDITION: [Stable]. TIME SPENT ON DISCHARGE: 20 minutes. Vital Signs/I&Os Vital Signs Date Time Temp Pulse Resp B/P (MAP) Pulse Ox O2 Delivery O2 Flow Rate FiO2 09/30/20 08:55 87 127/81 09/30/20 08:00 96.6 20 93 Room Air 09/30/20 04:00 2.0 I&O- Last 24 Hours up to 6 AM 09/30/20 06:00 Intake Total 950 ml Output Total 1825 ml Balance -875 ml Laboratory Data Labs 24H Laboratory Tests 2 09/30/20 03:48: Nucleated Red Blood Cells % (auto) 0.0, Anion Gap 6L, Glomerular Filtration Rate > 60.0, Calcium Level 8.7L, Magnesium Level 2.1 CBC/BMP Laboratory Tests 09/30/20 03:48 Microbiology Microbiology 09/27/20 Blood Culture - Preliminary, Resulted No Growth after 48 hours. All Specime... 09/27/20 Respiratory Virus Panel (PCR) (MARIAM) - Final, Complete Coronavirus Oc43 09/27/20 Blood Culture - Preliminary, Resulted No Growth after 48 hours. All Specime... Discharge Medications Scheduled Apixaban (Eliquis) 5 Mg Tablet, 5 MG PO BID, (Reported) Atorvastatin Calcium (Atorvastatin Calcium) 10 Mg Tablet, 20 MG PO QHS, (Reported) Lisinopril (Lisinopril) 40 Mg Tablet, 40 MG PO DAILY, (Reported) Metoprolol Succinate (Metoprolol Succinate) 100 Mg Tab.er.24h, 200 MG PO DAILY Multivitamin (Multivitamins) 1 Each Tablet, 1 TAB PO DAILY, (Reported) Allergies Coded Allergies: No Known Allergies (Unverified , 12/06/17) MARGY GUTIERREZ MD Sep 30, 2020 11:39
--- NOTE | 2020-09-30 11:47 | IPN ---
PROGRESS NOTE DATE: 09/30/2020 SUBJECTIVE: Mr. Mart has been feeling much better since yesterday. I did a cardioversion last night, surprisingly required 300 joules of energy to establish sinus rhythm but the procedure was uneventful and he has been sustaining sinus rhythm since. Yesterday evening, he had a six beat run of nonsustained VT that was asymptomatic but no other significant ectopy. He already ambulated without difficulty. OBJECTIVE: VITAL SIGNS: This morning blood pressure 123/65, heart rate has been in the 70s and 80s. He is afebrile. Saturation is 98% on 2 liters of oxygen via nasal cannula. Weight is recorded at 119 kg. GENERAL: He is alert, oriented and appropriate. NECK: JVP is not high. LUNGS: Good air movement, he has occasional expiratory wheezes. Not very prominent. HEART: Regular rhythm. I do not appreciate a gallop, rub or murmur. ABDOMEN: Obese, soft. EXTREMITIES: He has no edema. LABORATORY DATA: Normal basic metabolic panel and normal CBC. ASSESSMENT AND PLAN: Mr. Mart is a 64-year-old man who has a history of paroxysmal atrial fibrillation in the relatively distant past. He currently presented with COPD exacerbation related to viral infection and was found to be in atrial fibrillation with RVR, that was somewhat difficult to rate control. The onset of atrial fibrillation is uncertain but likely to be only in the last few days. Consequently, I proceeded with cardioversion and so far has been sustaining sinus rhythm. I believe we can discharge him home on his current medications. I tentatively plan to see him for follow-up in two or three weeks. His echocardiogram was interpreted as presenting mild left ventricular systolic dysfunction that was found to be global, most likely in my opinion related to tachycardia and cardiomyopathy.
== END 2020-09-30 11:11 | disposition home or self-care (01) ==
LOC: M ED 15:24 → M ED INP 15:25 → ENRESERV 19:36 → M PCU 20:37
PROVIDERS: ADMIT Internal Medicine; ATTEND Internal Medicine
DX: I48.91 Unspecified atrial fibrillation (principal); J06.9 Acute upper respiratory infection, unspecified; B97.29 Other coronavirus as the cause of diseases classified elsewhere; J44.1 Chronic obstructive pulmonary disease with (acute) exacerbation; I11.0 Hypertensive heart disease with heart failure; E78.5 Hyperlipidemia, unspecified; I50.22 Chronic systolic (congestive) heart failure; G47.33 Obstructive sleep apnea (adult) (pediatric); R06.02 Shortness of breath; E66.9 Obesity, unspecified; Z68.37 Body mass index [BMI] 37.0-37.9, adult; R73.03 Prediabetes; Z85.46 Personal history of malignant neoplasm of prostate; Z90.79 Acquired absence of other genital organ(s); Z85.118 Personal history of other malignant neoplasm of bronchus and lung; Z92.3 Personal history of irradiation; Z79.899 Other long term (current) drug therapy; Z79.01 Long term (current) use of anticoagulants
CPT/HCPCS: 36415; 71045; 80048; 80076; 80162; 81001; 82550; 82553; 83036; 83690; 83735; 83880; 84439; 84443; 84484; 85025; 85027; 85610; 85730; 87040; 87631; 87798; 92960; 93005; 93041; 93306; 94760; 96365; 96366; 96375; 96376; 99285; J0282; J1160; J1940

== ENCOUNTER → 2020-10-08 | Outpatient (CLI) | payer BC ==
[~2020-10-08] MED LIST changes: +AMIO100T5 PO; +ATOR1TAB21; +ELIQ5TAB PO; +LISI40TA4 PO; +MULTTAB61 PO
== END ==
LOC: M LABSMTC 10:37
PROVIDERS: ATTEND Anesthesiology
DX: Z20.822 Contact with and (suspected) exposure to COVID-19 (principal)

== ENCOUNTER 2020-10-09 11:02 | Day surgery (SDC) | payer BC ==
[~2020-10-09] VITALS: Ht 175.3 cm; Wt 116.8 kg
[~2020-10-09 11:02] MED LIST changes: -AMIO100T5 PO
[2020-10-09] MEDS ORDERED: AMIO100T5 PO (11:31)
[2020-10-09] MEDS ORDERED: propofoL 200 MG/20 ML VIAL As Ordered ONE (12:15)
[2020-10-09] MEDS ORDERED: LIDOCAINE 2% 100MG/5ML SDV (FOR ANES.) As Ordered ONE (12:15)
--- NOTE | 2020-10-09 12:43 | ECGEPIP ---
[facility] Test Date: 2020-10-09 Pat Name: CLEVELAND HUDDLESTON Department: Room: - Gender: Male Speech Therapist Early Intervention: EVETTE : 1955 Requested By: Ned Diaz Order Number: [id number] Reading MD: Andrea Najera Measurements Intervals [place] Rate: 74 P: 37 [place]: 188 QRS: -1 QRSD: 98 T: 4 QT: 400 QTc: 444 Interpretive Statements Normal sinus rhythm Nonspecific ST-T wave abnormalities possible previous septal infarct Similar to tracing done 09-29-20 Electronically Signed on 10-09-2020 12:43:42 EDT by Andrea Najera
[2020-10-09 13:20] VITALS: BP 107/75
--- NOTE | 2020-10-09 14:21 | RO ---
OPERATIVE NOTE DATE OF OPERATION: 10/09/2020 PREOPERATIVE DIAGNOSIS: Atrial fibrillation. POSTOPERATIVE DIAGNOSIS: Atrial fibrillation. PROCEDURE: Cardioversion. SURGEON: Ned Diaz MD. DIRECTOR OF REHABILITATION AND WELLNESS: ANESTHESIA: Dr. Evans and , MASTER TECHNICIAN. BRIEF HISTORY: Mr. Mart is a 65-year-old man who has a history of paroxysmal atrial fibrillation. He actually was hospitalized at [facility] a little more than a week ago with atrial fibrillation with RVR and was electrically cardioverted. He was fine and in sinus rhythm until atrial fibrillation relapse yesterday. Because it is not well controlled in spite of high doses of beta-blockers, I felt that cardioversion is the most feasible option. Patient was started on amiodarone on outpatient basis yesterday. He did sign appropriate consent in the office. DESCRIPTION OF PROCEDURE: Procedure was performed in the recovery room. Patient presented in a fasting condition. After appropriate time out was taken and all appropriate monitors were applied, anesthesiology administered sedation. When appropriate level of sedation was achieved, patient was cardioverted with 300 joules of energy deployed in biphasic pattern. It led to pentecostal of sinus rhythm without post conversion pause and occasional PVCs. He will be discharged home on his current medications with follow up in our office in two weeks.
--- NOTE | 2020-10-10 17:11 | ECGEPIP ---
[facility] Test Date: 2020-10-09 Pat Name: CLEVELAND HUDDLESTON Department: Room: - Gender: Male Internet Marketing Manager: EVETTE : 1955 Requested By: Ned Diaz Order Number: [id number] Reading MD: Andrea Najera Measurements Intervals [place] Rate: 136 P: CT: QRS: 43 QRSD: 96 T: -46 QT: 324 QTc: 487 Interpretive Statements Atrial fibrillation with rapid ventricular response Nonspecific ST and T wave abnormality Rate decreased from tracing done 09-27-20 Electronically Signed on 10-10-2020 17:10:34 EDT by Andrea Najera
== END 2020-10-09 13:20 | disposition home or self-care (01) ==
LOC: M SDC 11:02
PROVIDERS: ATTEND Internal Medicine Cardiovascular Disease
DX: I48.0 Paroxysmal atrial fibrillation (principal); I11.9 Hypertensive heart disease without heart failure; E78.49 Other hyperlipidemia; I50.9 Heart failure, unspecified; E66.9 Obesity, unspecified; G47.33 Obstructive sleep apnea (adult) (pediatric); Z85.46 Personal history of malignant neoplasm of prostate; Z79.899 Other long term (current) drug therapy

== ENCOUNTER → 2020-10-29 | Outpatient (CLI) | payer BC ==
[~2020-10-29] MED LIST changes: +AMIO100T5 PO
[2020-10-29 10:13] LABS: PROSTATIC SPECIFIC AG MONITOR 0.52 NG/ML (< 4.00)
== END ==
LOC: M WUC 08:17
PROVIDERS: ATTEND Urology
DX: C61 Malignant neoplasm of prostate (principal)

== ENCOUNTER → 2021-02-06 | Outpatient (CLI) | payer BC ==
[2021-02-06 20:18] LABS: PROSTATIC SPECIFIC AG MONITOR 0.67 NG/ML (< 4.00)
== END ==
LOC: M LAB 17:13
PROVIDERS: ATTEND Urology
DX: R97.21 Rising PSA following treatment for malignant neoplasm of prostate (principal)

== ENCOUNTER → 2021-03-13 | Outpatient (CLI) | payer BC ==
[2021-03-13 17:07] LABS: BLOOD UREA NITROGEN 19 MG/DL (7-18); CALCIUM LEVEL 8.9 MG/DL (8.8-10.2); CARBON DIOXIDE LEVEL 29 MEQ/L (21-32); CHLORIDE LEVEL 104 MEQ/L (98-107); CREATININE FOR GFR 1.18 MG/DL (0.70-1.30); GLOMERULAR FILTRATION RATE > 60.0 (>49); GLUCOSE, FASTING 99 MG/DL (70-100); POTASSIUM SERUM 4.3 MEQ/L (3.5-5.1); SODIUM LEVEL 139 MEQ/L (136-145)
== END ==
LOC: M WUC 10:40
PROVIDERS: ATTEND Internal Medicine Cardiovascular Disease
DX: I48.91 Unspecified atrial fibrillation (principal)

== ENCOUNTER → 2021-04-04 | Outpatient (CLI) | payer BC | LOC: M LAB 12:27 | PROVIDERS: ATTEND Urology | DX: C61 Malignant neoplasm of prostate (principal) ==

== ENCOUNTER → 2021-05-16 | Outpatient (CLI) | payer BC | LOC: M LAB 11:00 | PROVIDERS: ATTEND Urology | DX: C61 Malignant neoplasm of prostate (principal) ==

== ENCOUNTER → 2021-06-25 | Outpatient (CLI) | payer BC | LOC: M LAB 11:13 | PROVIDERS: ATTEND Urology | DX: C61 Malignant neoplasm of prostate (principal) ==

== ENCOUNTER → 2021-08-06 | Outpatient (CLI) | payer BC ==
[~2021-08-06] MED LIST changes: -AMIO200T3 PO; +AMIO200T49 PO
[2021-08-06 14:09] LABS: PROSTATIC SPECIFIC AG MONITOR 1.65 NG/ML (< 4.00)
== END ==
LOC: M WUC 10:15
PROVIDERS: ATTEND Urology
DX: C61 Malignant neoplasm of prostate (principal); R97.21 Rising PSA following treatment for malignant neoplasm of prostate

== ENCOUNTER → 2021-09-14 | Outpatient (CLI) | payer BC | LOC: M WUC 08:28 | PROVIDERS: ATTEND Urology | DX: C61 Malignant neoplasm of prostate (principal) ==

== ENCOUNTER → 2021-10-23 | Outpatient (CLI) | payer BC | LOC: M LAB 16:33 | PROVIDERS: ATTEND Urology | DX: C61 Malignant neoplasm of prostate (principal) ==

== ENCOUNTER → 2021-10-31 | Outpatient (CLI) | payer BC ==
[2021-10-31 12:04] LABS: BLOOD UREA NITROGEN 14 MG/DL (7-18); CALCIUM LEVEL 9.3 MG/DL (8.8-10.2); CARBON DIOXIDE LEVEL 32 MEQ/L (21-32); CHLORIDE LEVEL 105 MEQ/L (98-107); CREATININE FOR GFR 1.11 MG/DL (0.70-1.30); GLOMERULAR FILTRATION RATE > 60.0 (>49); GLUCOSE, FASTING 110 MG/DL (70-100); POTASSIUM SERUM 4.5 MEQ/L (3.5-5.1); SODIUM LEVEL 140 MEQ/L (136-145)
== END ==
LOC: M LAB 11:16
PROVIDERS: ATTEND Urology
DX: R97.21 Rising PSA following treatment for malignant neoplasm of prostate (principal)

== ENCOUNTER → 2021-12-15 | Outpatient (REF) | payer BC ==
[2021-12-15 16:11] LABS: HEMOGLOBIN 13.1 g/dl (13.5-17.5); MEAN CORPUSCULAR HEMOGLOBIN 27.9 pg (27.0-33.0); MEAN CORPUSCULAR HGB CONC 32.8 g/dl (32.0-36.5); MEAN CORPUSCULAR VOLUME 85.3 fl (80.0-96.0); PLATELET COUNT, AUTOMATED 267 10^3/uL (150-450); RED BLOOD COUNT 4.69 10^6/uL (4.30-6.10); WHITE BLOOD COUNT 8.8 10^3/uL (4.0-10.0)
[2021-12-15 16:28] LABS: ALBUMIN 3.8 GM/DL (3.2-5.2); ALT/SGPT 39 U/L (12-78); BILIRUBIN,TOTAL 0.4 MG/DL (0.2-1.0); BLOOD UREA NITROGEN 20 MG/DL (7-18); CALCIUM LEVEL 9.6 MG/DL (8.8-10.2); CARBON DIOXIDE LEVEL 30 MEQ/L (21-32); CHLORIDE LEVEL 105 MEQ/L (98-107); CHOLESTEROL LEVEL 189 MG/DL (<200); CREATININE FOR GFR 1.12 MG/DL (0.70-1.30); GLOMERULAR FILTRATION RATE > 60.0 (>49); GLUCOSE, FASTING 100 MG/DL (70-100); HDL CHOLESTEROL 50 MG/DL (>40); LDL CHOLESTEROL 90 MG/DL (<100); NON-HDL-C 139 MG/DL; POTASSIUM SERUM 4.8 MEQ/L (3.5-5.1); SODIUM LEVEL 141 MEQ/L (136-145); TRIGLYCERIDES LEVEL 243 MG/DL (<150)
[2021-12-15 19:18] LABS: HEMOGLOBIN A1c 5.6 %
== END ==
LOC: M SFHCADAM 14:53
PROVIDERS: ATTEND Family Medicine
DX: E78.2 Mixed hyperlipidemia (principal); R73.01 Impaired fasting glucose; Z79.01 Long term (current) use of anticoagulants

== ENCOUNTER → 2022-01-25 | Outpatient (CLI) | payer BC ==
[2022-01-25 16:57] LABS: PROSTATIC SPECIFIC AG MONITOR 2.53 NG/ML (< 4.00)
== END ==
LOC: M WUC 13:27
PROVIDERS: ATTEND Urology
DX: C61 Malignant neoplasm of prostate (principal)

== ENCOUNTER → 2022-02-15 | Outpatient (CLI) | payer BC ==
[2022-02-15 22:32] LABS: PROSTATIC SPECIFIC AG MONITOR 3.21 NG/ML (< 4.00)
== END ==
LOC: M WUC 15:10
PROVIDERS: ATTEND Urology
DX: C61 Malignant neoplasm of prostate (principal)

== ENCOUNTER → 2022-04-02 | Outpatient (CLI) | payer BC ==
[2022-04-02 18:35] LABS: ALBUMIN 3.6 GM/DL (3.2-5.2); BILIRUBIN,DIRECT 0.1 MG/DL (0.0-0.2); BILIRUBIN,TOTAL 0.4 MG/DL (0.2-1.0); PROSTATIC SPECIFIC AG MONITOR 4.11 NG/ML (< 4.00); TOTAL PROTEIN 6.6 GM/DL (6.4-8.2)
== END ==
LOC: M WUC 15:10
PROVIDERS: ATTEND Urology
DX: C61 Malignant neoplasm of prostate (principal)

== ENCOUNTER → 2022-06-21 | Outpatient (CLI) | payer BC ==
[2022-06-21 12:57] LABS: ALBUMIN 3.7 G/DL (3.2-5.2); BILIRUBIN,DIRECT 0.1 MG/DL (<0.4); BILIRUBIN,TOTAL 0.4 MG/DL (0.3-1.2); PROSTATIC SPECIFIC AG MONITOR 5.27 NG/ML (< 4.00); TOTAL PROTEIN 6.6 G/DL (5.7-8.2)
== END ==
LOC: M WUC 10:35
PROVIDERS: ATTEND Urology
DX: C61 Malignant neoplasm of prostate (principal)

== ENCOUNTER → 2022-08-03 | Outpatient (CLI) | payer BC ==
[2022-08-03 13:11] LABS: PROSTATIC SPECIFIC AG MONITOR 7.24 NG/ML (< 4.00)
[2022-08-03 13:15] LABS: BILIRUBIN,DIRECT 0.1 MG/DL (<0.4)
[2022-08-03 13:19] LABS: ALBUMIN 3.6 G/DL (3.2-5.2); BILIRUBIN,TOTAL 0.4 MG/DL (0.3-1.2)
== END ==
LOC: M WUC 09:46
PROVIDERS: ATTEND Urology
DX: C61 Malignant neoplasm of prostate (principal)

== ENCOUNTER → 2022-08-19 | Outpatient (REF) | payer BC ==
[2022-08-19 12:46] LABS: HEMATOCRIT 41.7 % (42.0-52.0); HEMOGLOBIN 13.7 g/dl (13.5-17.5); MEAN CORPUSCULAR HEMOGLOBIN 27.7 pg (27.0-33.0); MEAN CORPUSCULAR HGB CONC 32.9 g/dl (32.0-36.5); MEAN CORPUSCULAR VOLUME 84.2 fl (80.0-96.0); PLATELET COUNT, AUTOMATED 268 10^3/uL (150-450); RED BLOOD COUNT 4.95 10^6/uL (4.30-6.10); WHITE BLOOD COUNT 7.6 10^3/uL (4.0-10.0)
[2022-08-19 13:17] LABS: HEMOGLOBIN A1c 5.9 % (4.0-6.0)
[2022-08-19 13:20] LABS: ALKALINE PHOSPHATASE 86 U/L (46-116); ALT/SGPT 28 U/L (7.0-40); AST/SGOT 23 U/L (<34); BILIRUBIN,TOTAL 0.4 MG/DL (0.3-1.2); BLOOD UREA NITROGEN 20 MG/DL (9-23); CALCIUM LEVEL 9.9 MG/DL (8.3-10.6); CARBON DIOXIDE LEVEL 29 MMOL/L (20-31); CHLORIDE LEVEL 101 MMOL/L (98-107); CHOLESTEROL LEVEL 232 MG/DL (<200); CHOLESTEROL RISK RATIO 4.91 (<5); CREATININE FOR GFR 0.92 MG/DL (0.70-1.30); GLOMERULAR FILTRATION RATE > 60.0 (>49); GLUCOSE, FASTING 99 MG/DL (74-106); HDL CHOLESTEROL 47.2 MG/DL (>40); NON-HDL-C 185 MG/DL; POTASSIUM SERUM 4.9 MMOL/L (3.5-5.1); SODIUM LEVEL 135 MMOL/L (136-145); THYROID STIMULATING HORMONE 1.111 uIU/ML (0.55-4.78); TOTAL PROTEIN 6.7 G/DL (5.7-8.2); TRIGLYCERIDES LEVEL 374 MG/DL (<150)
[2022-08-19 13:22] LABS: FREE T4 1.56 NG/DL (0.89-1.76)
== END ==
LOC: M SFHCADAM 10:33
PROVIDERS: ATTEND Family Medicine
DX: I48.91 Unspecified atrial fibrillation (principal); E78.2 Mixed hyperlipidemia; I11.9 Hypertensive heart disease without heart failure; R73.01 Impaired fasting glucose

== ENCOUNTER → 2022-09-09 | Outpatient (CLI) | payer BC ==
[~2022-09-09] MED LIST changes: +LUPR22.5 IM; +XTAN40CA PO
== END ==
LOC: M WUC 11:12
PROVIDERS: ATTEND Internal Medicine Hematology & Oncology
DX: C61 Malignant neoplasm of prostate (principal)

== ENCOUNTER → 2022-09-28 | Outpatient (CLI) | payer BC ==
[~2022-09-28] MED LIST changes: +GASTROGRAFIN SOLUTION 30ML As Ordered ONE; +ISOVUE-370 76% 100ML VIAL As Ordered ONE
== END ==
LOC: M RAD 11:57
PROVIDERS: ATTEND Internal Medicine Hematology & Oncology
DX: C61 Malignant neoplasm of prostate (principal)

== ENCOUNTER → 2023-02-26 | Outpatient (CLI) | payer BC ==
[~2023-02-26] MED LIST changes: +AMIO100T4 PO; -AMIO100T5 PO; -DILT1CAP9 PO; +DILT360C7 PO; -GASTROGRAFIN SOLUTION 30ML As Ordered ONE; -ISOVUE-370 76% 100ML VIAL As Ordered ONE
[2023-02-26 09:53] LABS: HEMATOCRIT 39.9 % (42.0-52.0); HEMOGLOBIN 13.3 g/dl (13.5-17.5); MEAN CORPUSCULAR HEMOGLOBIN 28.6 pg (27.0-33.0); MEAN CORPUSCULAR HGB CONC 33.3 g/dl (32.0-36.5); MEAN CORPUSCULAR VOLUME 85.8 fl (80.0-96.0); PLATELET COUNT, AUTOMATED 234 10^3/uL (150-450); RED BLOOD COUNT 4.65 10^6/uL (4.30-6.10); WHITE BLOOD COUNT 7.9 10^3/uL (4.0-10.0)
[2023-02-26 10:21] LABS: ALBUMIN 3.8 G/DL (3.2-5.2); ALKALINE PHOSPHATASE 59 U/L (46-116); ALT/SGPT 19 U/L (7.0-40); AST/SGOT 13 U/L (<34); BILIRUBIN,TOTAL 0.7 MG/DL (0.3-1.2); BLOOD UREA NITROGEN 17 MG/DL (9-23); CALCIUM LEVEL 9.2 MG/DL (8.3-10.6); CARBON DIOXIDE LEVEL 28 MMOL/L (20-31); CHLORIDE LEVEL 106 MMOL/L (98-107); CHOLESTEROL LEVEL 175 MG/DL (<200); CHOLESTEROL RISK RATIO 3.37 (<5); CREATININE FOR GFR 0.86 MG/DL (0.70-1.30); GLOMERULAR FILTRATION RATE > 60.0 (>49); GLUCOSE, FASTING 108 MG/DL (74-106); HDL CHOLESTEROL 51.9 MG/DL (>40); LDL CHOLESTEROL 96.1 MG/DL (<100); NON-HDL-C 123.1 MG/DL; POTASSIUM SERUM 5.1 MMOL/L (3.5-5.1); SODIUM LEVEL 141 MMOL/L (136-145); TOTAL PROTEIN 6.5 G/DL (5.7-8.2); TRIGLYCERIDES LEVEL 135 MG/DL (<150)
[2023-02-26 10:22] LABS: HEMOGLOBIN A1c 5.5 % (4.0-6.0)
[2023-02-26 10:24] LABS: FREE T4 1.41 NG/DL (0.89-1.76); THYROID STIMULATING HORMONE 1.151 uIU/ML (0.55-4.78)
== END ==
LOC: M LAB 09:00
PROVIDERS: ATTEND Family Medicine
DX: I48.91 Unspecified atrial fibrillation (principal); C61 Malignant neoplasm of prostate; Z79.01 Long term (current) use of anticoagulants

== ENCOUNTER → 2023-03-30 | Outpatient (CLI) | payer BC ==
[~2023-03-30] MED LIST changes: +ACET300T48 PO
== END ==
LOC: M RAD 12:31
PROVIDERS: ATTEND Nurse Practitioner
DX: C61 Malignant neoplasm of prostate (principal)

== ENCOUNTER → 2023-05-10 | Outpatient (CLI) | payer BC ==
[~2023-05-10] MED LIST changes: +PROHANCE 279.3MG/ML 15ML VIAL ONE; +PROHANCE 279.3MG/ML 5ML VIAL ONE
== END ==
LOC: M PLAIMG 13:32
PROVIDERS: ATTEND Nurse Practitioner
DX: C61 Malignant neoplasm of prostate (principal); R53.83 Other fatigue

== ENCOUNTER → 2023-08-22 | Outpatient (CLI) | payer BC ==
[~2023-08-22] MED LIST changes: -PROHANCE 279.3MG/ML 15ML VIAL ONE; -PROHANCE 279.3MG/ML 5ML VIAL ONE
== END ==
LOC: M PAIN 08:00
PROVIDERS: ATTEND Nurse Practitioner Family
DX: M51.16 Intervertebral disc disorders with radiculopathy, lumbar region (principal); M47.816 Spondylosis without myelopathy or radiculopathy, lumbar region; G89.29 Other chronic pain; R73.03 Prediabetes; E66.9 Obesity, unspecified; E55.9 Vitamin D deficiency, unspecified; E78.5 Hyperlipidemia, unspecified; G47.33 Obstructive sleep apnea (adult) (pediatric); I10 Essential (primary) hypertension; Z88.8 Allergy status to other drugs, medicaments and biological substances; Z68.39 Body mass index [BMI] 39.0-39.9, adult

== ENCOUNTER → 2023-09-05 | Outpatient (CLI) | payer BC | LOC: M PAIN 15:30 | PROVIDERS: ATTEND Nurse Practitioner Family | DX: M51.16 Intervertebral disc disorders with radiculopathy, lumbar region (principal); G89.29 Other chronic pain; R73.03 Prediabetes; E66.9 Obesity, unspecified; E55.9 Vitamin D deficiency, unspecified; E78.5 Hyperlipidemia, unspecified; G47.33 Obstructive sleep apnea (adult) (pediatric); I10 Essential (primary) hypertension; Z79.01 Long term (current) use of anticoagulants; Z79.899 Other long term (current) drug therapy; Z88.8 Allergy status to other drugs, medicaments and biological substances; Z68.39 Body mass index [BMI] 39.0-39.9, adult ==

== ENCOUNTER → 2024-01-03 | Outpatient (CLI) | payer BC ==
[~2024-01-03] MED LIST changes: +eligard
== END ==
LOC: M PAIN 11:00
PROVIDERS: ATTEND Nurse Practitioner Family
DX: M79.18 Myalgia, other site (principal); G89.29 Other chronic pain; R73.03 Prediabetes; E66.9 Obesity, unspecified; E55.9 Vitamin D deficiency, unspecified; E78.5 Hyperlipidemia, unspecified; G47.33 Obstructive sleep apnea (adult) (pediatric); I48.91 Unspecified atrial fibrillation; I10 Essential (primary) hypertension; M47.814 Spondylosis without myelopathy or radiculopathy, thoracic region; Z79.01 Long term (current) use of anticoagulants; Z79.899 Other long term (current) drug therapy; Z88.8 Allergy status to other drugs, medicaments and biological substances; Z68.38 Body mass index [BMI] 38.0-38.9, adult

== ENCOUNTER 2024-01-25 10:30 | Day surgery (SDC) | payer BC ==
[~2024-01-25] VITALS: Ht 175.3 cm; Wt 122.5 kg
[~2024-01-25 10:30] MED LIST changes: +LIDOCAINE 2% 100MG/5ML SDV (FOR ANES.) As Ordered ONE; +propofoL 200 MG/20 ML VIAL As Ordered ONE
[2024-01-25] MEDS: NS 1,000 ML IV SCH (11:08)
[2024-01-25 12:13] VITALS: TEMP 98.9
[2024-01-25 12:27] VITALS: BP 117/74; O2SAT 96
== END 2024-01-25 12:41 | disposition home or self-care (01) ==
LOC: M OPP 10:30
PROVIDERS: ATTEND Internal Medicine Gastroenterology
DX: Z12.11 Encounter for screening for malignant neoplasm of colon (principal); Z86.010 Personal history of colon polyps; D12.6 Benign neoplasm of colon, unspecified; K64.0 First degree hemorrhoids; K57.30 Diverticulosis of large intestine without perforation or abscess without bleeding; G47.30 Sleep apnea, unspecified; Z99.89 Dependence on other enabling machines and devices; I10 Essential (primary) hypertension; Z87.891 Personal history of nicotine dependence; Z79.01 Long term (current) use of anticoagulants; Z79.891 Long term (current) use of opiate analgesic; Z79.899 Other long term (current) drug therapy

== ENCOUNTER → 2024-04-07 | Outpatient (CLI) | payer BC ==
[~2024-04-07] MED LIST changes: -LIDOCAINE 2% 100MG/5ML SDV (FOR ANES.) As Ordered ONE; -propofoL 200 MG/20 ML VIAL As Ordered ONE
[2024-04-07 10:11] LABS: HEMATOCRIT 41.1 % (42.0-52.0); HEMOGLOBIN 13.2 g/dl (13.5-17.5); MEAN CORPUSCULAR HEMOGLOBIN 28.2 pg (27.0-33.0); MEAN CORPUSCULAR HGB CONC 32.1 g/dl (32.0-36.5); MEAN CORPUSCULAR VOLUME 87.8 fl (80.0-96.0); PLATELET COUNT, AUTOMATED 238 10^3/uL (150-450); RED BLOOD COUNT 4.68 10^6/uL (4.30-6.10); WHITE BLOOD COUNT 8.9 10^3/uL (4.0-10.0)
[2024-04-07 10:40] LABS: ALBUMIN 3.6 G/DL (3.2-5.2); ALKALINE PHOSPHATASE 64 U/L (46-116); ALT/SGPT 16 U/L (7.0-40); AST/SGOT 12 U/L (<34); BILIRUBIN,TOTAL 0.7 MG/DL (0.3-1.2); BLOOD UREA NITROGEN 18 MG/DL (9-23); CALCIUM LEVEL 9.4 MG/DL (8.3-10.6); CARBON DIOXIDE LEVEL 29 MMOL/L (20-31); CHLORIDE LEVEL 105 MMOL/L (98-107); CHOLESTEROL LEVEL 208 MG/DL (<200); CREATININE FOR GFR 0.89 MG/DL (0.70-1.30); GLOMERULAR FILTRATION RATE > 60.0 (>49); GLUCOSE, FASTING 103 MG/DL (74-106); MAGNESIUM LEVEL 2.1 MG/DL (1.8-2.4); SODIUM LEVEL 137 MMOL/L (136-145); TOTAL PROTEIN 6.5 G/DL (5.7-8.2); TRIGLYCERIDES LEVEL 191 MG/DL (<150)
[2024-04-07 11:14] LABS: HEMOGLOBIN A1c 5.5 % (4.0-6.0)
[2024-04-07 12:55] LABS: CHOLESTEROL RISK RATIO 4.69 (<5); HDL CHOLESTEROL 44.3 MG/DL (>40); LDL CHOLESTEROL 125.5 MG/DL (<100); NON-HDL-C 163.7 MG/DL
== END ==
LOC: M LAB 08:44
PROVIDERS: ATTEND Family Medicine
DX: I11.9 Hypertensive heart disease without heart failure (principal); R73.01 Impaired fasting glucose; I48.91 Unspecified atrial fibrillation; E78.2 Mixed hyperlipidemia

== ENCOUNTER → 2024-04-17 | Outpatient (CLI) | payer BC ==
[~2024-04-17] MED LIST changes: +TRIAMCINOLONE ACETONIDE SUSP 40MG/ML 1ML VIAL As Ordered ONE
== END ==
LOC: M PAIN 16:00
PROVIDERS: ATTEND Anesthesiology
DX: M79.18 Myalgia, other site (principal); G89.29 Other chronic pain; R73.03 Prediabetes; E66.9 Obesity, unspecified; E55.9 Vitamin D deficiency, unspecified; E78.5 Hyperlipidemia, unspecified; I48.91 Unspecified atrial fibrillation; G47.33 Obstructive sleep apnea (adult) (pediatric); I10 Essential (primary) hypertension; Z79.01 Long term (current) use of anticoagulants; Z79.1 Long term (current) use of non-steroidal anti-inflammatories (NSAID); Z79.899 Other long term (current) drug therapy; Z88.8 Allergy status to other drugs, medicaments and biological substances
CPT/HCPCS: 20552; J0665; J3301

== ENCOUNTER → 2024-05-17 | Outpatient (CLI) | payer BC ==
[~2024-05-17] MED LIST changes: +ONDA-284 PO; -TRIAMCINOLONE ACETONIDE SUSP 40MG/ML 1ML VIAL As Ordered ONE
== END ==
LOC: M PAIN 17:00
PROVIDERS: ATTEND Nurse Practitioner Family
DX: M51.16 Intervertebral disc disorders with radiculopathy, lumbar region (principal); M79.18 Myalgia, other site; G89.29 Other chronic pain; R73.03 Prediabetes; E66.9 Obesity, unspecified; E55.9 Vitamin D deficiency, unspecified; E78.5 Hyperlipidemia, unspecified; G47.33 Obstructive sleep apnea (adult) (pediatric); I10 Essential (primary) hypertension; Z79.1 Long term (current) use of non-steroidal anti-inflammatories (NSAID); Z79.899 Other long term (current) drug therapy; Z88.8 Allergy status to other drugs, medicaments and biological substances; Z68.37 Body mass index [BMI] 37.0-37.9, adult

== ENCOUNTER → 2024-07-19 | Outpatient (CLI) | payer BC ==
[~2024-07-19] MED LIST changes: +ISOVUE-M 300 61% 15ML VIAL As Ordered ONE; +LIDOCAINE 1% SDV 30ML VIAL As Ordered ONE; +NORCO, ANEXSIA 5/325MG TABLET (HYDROcodone/ACETAMINOPHEN) As Ordered ONE; +dexAMETHasone 10MG/1ML VIAL PRES.FREE As Ordered ONE; +diazePAM 5MG TABLET As Ordered ONE
== END ==
LOC: M PAIN 14:30
PROVIDERS: ATTEND Anesthesiology
DX: M51.16 Intervertebral disc disorders with radiculopathy, lumbar region (principal); G89.29 Other chronic pain; Z79.01 Long term (current) use of anticoagulants; Z79.899 Other long term (current) drug therapy; Z85.46 Personal history of malignant neoplasm of prostate; Z86.16 Personal history of COVID-19; Z88.8 Allergy status to other drugs, medicaments and biological substances
CPT/HCPCS: 62323; J1100; Q9967

== ENCOUNTER → 2024-08-27 | Outpatient (CLI) | payer BC ==
[~2024-08-27] MED LIST changes: -ISOVUE-M 300 61% 15ML VIAL As Ordered ONE; -LIDOCAINE 1% SDV 30ML VIAL As Ordered ONE; -NORCO, ANEXSIA 5/325MG TABLET (HYDROcodone/ACETAMINOPHEN) As Ordered ONE; -dexAMETHasone 10MG/1ML VIAL PRES.FREE As Ordered ONE; -diazePAM 5MG TABLET As Ordered ONE
== END ==
LOC: M PAIN 10:45
PROVIDERS: ATTEND Nurse Practitioner Family
DX: M51.16 Intervertebral disc disorders with radiculopathy, lumbar region (principal); M79.10 Myalgia, unspecified site; G89.29 Other chronic pain; E78.5 Hyperlipidemia, unspecified; I10 Essential (primary) hypertension; I48.91 Unspecified atrial fibrillation; Z79.1 Long term (current) use of non-steroidal anti-inflammatories (NSAID); Z79.899 Other long term (current) drug therapy; Z88.8 Allergy status to other drugs, medicaments and biological substances

== ENCOUNTER → 2025-02-18 | Outpatient (CLI) | payer BC ==
[~2025-02-18] MED LIST changes: -AMIO200T49 PO; +AMIO200T54 PO; +HYDR12.510 PO; -HYDR12CA PO; +LISI40TA10 PO; -LISI40TA4 PO; +TALA1CAP PO; +[UNRECOGNIZED DRUG - CODE] PO
[2025-02-18 13:47] LABS: PLATELET COUNT, AUTOMATED 233 10^3/uL (150-450)
[2025-02-18 13:55] LABS: ALT/SGPT 15 U/L (7.0-40); AST/SGOT 17 U/L (<34); CALCIUM LEVEL 9.1 MG/DL (8.3-10.6); CARBON DIOXIDE LEVEL 28 MMOL/L (20-31); CHLORIDE LEVEL 107 MMOL/L (98-107); CHOLESTEROL LEVEL 194 MG/DL (<200); CHOLESTEROL RISK RATIO 4.06 (<5); CREATININE FOR GFR 0.81 MG/DL (0.70-1.30); GLOMERULAR FILTRATION RATE > 90.0 (>49); LDL CHOLESTEROL 111.9 MG/DL (<100); MAGNESIUM LEVEL 2.2 MG/DL (1.8-2.4); NON-HDL-C 146.3 MG/DL; POTASSIUM SERUM 4.5 MMOL/L (3.5-5.1); SODIUM LEVEL 143 MMOL/L (136-145); TRIGLYCERIDES LEVEL 172 MG/DL (<150)
[2025-02-18 14:12] LABS: ESTIMATED AVERAGE GLUCOSE 117.0 MG/DL (60-110)
== END ==
LOC: M WUC 08:30
PROVIDERS: ATTEND Family Medicine
DX: I11.9 Hypertensive heart disease without heart failure (principal); R73.01 Impaired fasting glucose; I48.91 Unspecified atrial fibrillation; E78.2 Mixed hyperlipidemia

== ENCOUNTER → 2025-05-22 | Outpatient (REF) | payer BC ==
[~2025-05-22] MED LIST changes: +NIAC500T29
== END ==
LOC: M SFHCDERM 13:11
PROVIDERS: ATTEND Physician Assistant
DX: C44.91 Basal cell carcinoma of skin, unspecified (principal)

== ENCOUNTER → 2025-06-13 | Outpatient (REF) | payer BC ==
[~2025-06-13] MED LIST changes: +[UNRECOGNIZED DRUG - CODE] PO
== END ==
LOC: M SFHCDERM 16:37
PROVIDERS: ATTEND Physician Assistant
DX: C44.519 Basal cell carcinoma of skin of other part of trunk (principal)